=== PATIENT | male | born 1965 | race Hispanic/Latino ===

== ENCOUNTER 2020-11-15 13:40 | Emergency (ER) | payer MEDICARE, OTHER ==
[2020-11-15 17:30] LABS: Urine Blood NEGATIVE (NEG); Urine Glucose 2+ (NEG); Urine Protein NEGATIVE (NEG); Urine Specific Gravity 1.025 (1.005-1.030)
[2020-11-15 19:21] LABS: Absolute Lymphocytes (CBC) 1.1 K/uL (0.7-4.9); Basophils % 0.6 % (0-1.3); Hematocrit 47.6 % (39.6-49.0); Lymphocytes % 16.4 % (15.3-44.8); MPV 9.5 fL (7.6-11.3)
[2020-11-15 19:22] LABS: Protime INR 0.99
[2020-11-15 19:35] LABS: ALT/SGPT 54 U/L (12-78); AST/SGOT 35 U/L (15-37); Albumin 3.9 g/dL (3.4-5.0); Alkaline Phosphatase 113 U/L (45-117); BUN Blood Urea Nitrogen 9 mg/dL (7-18); Bicarbonate 27 mmol/L (21-32); Bilirubin Direct 0.2 mg/dL (0-0.2); Bilirubin Total 0.8 mg/dL (0.2-1.0); Glucose Level 236 mg/dL (74-106); Magnesium 1.7 mg/dL (1.8-2.4); NT PRO-BNP 25 pg/mL (<125); Potassium 4.2 mmol/L (3.5-5.1); Protein, Total 7.9 g/dL (6.4-8.2); Sodium Level 139 mmol/L (136-145); Troponin (Emerg Dept Use Only) < 0.02 ng/mL (0.0-0.045)
--- NOTE | 2020-11-15 19:50 | RAD REPORT ---
EXAM DESCRIPTION: CT - Head Brain Wo Cont - 11/15/2020 7:28 pm CLINICAL HISTORY: HEADACHE Headache, hypertension COMPARISON: HEAD BRAIN W O CONTRAST dated 09/06/2007 TECHNIQUE: All CT scans are performed using dose optimization technique as appropriate and may inclu de automated exposure control or mA/KV adjustment according to patient size. FINDINGS: No intracranial hemorrhage, hydrocephalus or extra-axial fluid collection.No areas of brai n edema or evidence of midline shift. Mild mucosal thickening of the sphenoid and posterior ethmoid air cells. The calvarium is intact. IMPRESSION: No acute intracranial abnormality.
[2020-11-15] MEDS ORDERED: ACETAMINOPHEN 500 MG TAB ONE (19:54)
--- NOTE | 2020-11-15 19:54 | RAD REPORT ---
EXAM DESCRIPTION: RAD - Chest Single View - 11/15/2020 7:20 pm CLINICAL HISTORY: headache Chest pain. COMPARISON: Chest Pa And Lat (2 Views) dated 03/04/2018; Chest Single View dated 05/11/2016; CHEST SINGL E VIEW dated 09/05/2015; CHEST SINGLE VIEW dated 08/10/2015 FINDINGS: Portable technique limits examination quality. The lungs are grossly clear. The heart is normal in size. No displaced fractures. IMPRESSION: No acute intrathoracic process suspected.
--- NOTE | 2020-11-15 20:29 | ER ---
Nurse's Notes [facility] Name: Nuvia Blandon Jr Age: 54 yrs Sex: Male : 1965 Arrival Date: 11/15/2020 Time: 13:45 Bed 17 Private MD: Diagnosis: Headache;Dizziness and giddiness Presentation: 11/15 14:11 Chief complaint: Patient states: Dizziness and blood sugar higher than normal (300's) ll1 for 1 week. KAUR for 1 day. No fever or cough. Fingerstick 336 in triage. Coronavirus screen: Client denies travel out of the [place] in the last 14 days. At this time, the client does not indicate any symptoms associated with coronavirus-19. Ebola Screen: Patient denies travel to an Ebola-affected area in the 21 days before illness onset. Initial Sepsis Screen: Does the patient meet any 2 criteria? HR > 90 bpm. No. Patient's initial sepsis screen is negative. Does the patient have a suspected source of infection? Yes: Other: KAUR. Risk Assessment: Do you want to hurt yourself or someone else? Patient reports no desire to harm self or others. Onset of symptoms was November 11, 2020. 14:11 Method Of Arrival: Ambulatory ll1 14:11 Acuity: CRIS 3 ll1 Historical: - Allergies: 14:11 Bactrim; ll1 14:11 PENICILLINS; ll1 14:11 Morphine; ll1 - PMHx: 14:11 cancer-liver; Cirrhosis; Hepatitis; liver transplant; ll1 - PSHx: 14:11 Transplant; L wrist; ll1 - Immunization history:: Flu vaccine is up to date. - Social history:: Smoking status: Patient denies any tobacco usage or history of. Assessment: 19:15 General: Appears in no apparent distress. Behavior is calm, cooperative, appropriate ll2 for age. Pain: Complains of pain in headache. Neuro: Level of Consciousness is awake, alert, obeys commands, Oriented to person, place, time, situation. Cardiovascular: Patient's skin is warm and dry. Respiratory: Airway is patent Respiratory effort is even, unlabored, Respiratory pattern is regular, symmetrical. Derm: Skin is intact, is healthy with good turgor, Skin is pink, warm \T\ dry. Musculoskeletal: Circulation, motion, and sensation intact. Range of motion: intact in all extremities. Vital Signs: 14:11 BP 135 / 99; Pulse 98; Resp 17; Temp 98.5; Pulse Ox 97% ; Weight 104.78 kg; Height 5 ll1 ft. 7 in. (170.18 cm); Pain 10/10; 14:11 Body Mass Index 36.18 (104.78 kg, 170.18 cm) ll1 ED Course: 13:45 Patient arrived in ED. mr 14:10 Arm band placed on. ll1 14:18 Triage completed. ll1 16:27 Keagan Wallace MD is Attending Physician. kdr 16:55 UA collection ok'd by Dr. Wallace. ll1 19:04 Initial lab(s) drawn, by me, sent to lab. Inserted saline lock: 20 gauge in right jp3 antecubital area, using aseptic technique. Blood collected. Patient maintains SpO2 saturation greater than 95% on room air. 19:19 XRAY Chest (1 view) In Process Unspecified. EDMS 19:19 EKG done, by ED staff, reviewed by Keagan Wallace MD. jp3 19:25 Bed in low position. Call light in reach. Side rails up X 1. Warm blanket given. Verbal jp3 reassurance given. telemetry monitor on. Pulse ox on. NIBP on. 19:28 CT Head Brain wo Cont In Process Unspecified. EDMS 19:48 Attending Physician role handed off by Keagan Wallace MD tw4 19:48 Leif Parkinson MD is Attending Physician. tw4 20:11 Laura Abrams, DYLAN is Primary Nurse. ll2 Administered Medications: 19:45 Drug: Tylenol 1000 mg Route: PO; ll2 20:49 Drug: Zofran (Ondansetron) 4 mg Route: IVP; Site: right antecubital; ll2 20:50 Drug: TORadol 30 mg Route: IVP; Site: right antecubital; ll2 20:50 Drug: Meclizine 25 mg Route: PO; ll2 Outcome: 20:28 Discharge ordered by . tw4 21:42 Patient left the ED. ll2 Signatures: Dispatcher [employer] EDMS Keagan Wallace MD MD [facility] Karen Dolan mr Leif Parkinson MD MD tw4 Evin Becker jp3 Laura Abrams, RN RN ll2 Ros Bee, DYLAN RN ll1
--- NOTE | 2020-11-15 20:29 | EDPHYS ---
Physician Documentation [facility] Name: Nuvia Blandon Jr Age: 54 yrs Sex: Male : 1965 Arrival Date: 11/15/2020 Time: 13:45 Bed 17 Private MD: ED Physician Leif Parkinson HPI: 11/16 04:46 This 54 yrs old Male presents to ER via Ambulatory with complaints of tw4 Headache, Dizziness, High Blood Sugar. 04:46 The patient complains of pain to the forehead. Onset: The symptoms/episode tw4 began/occurred today. Associated signs and symptoms: The patient has no apparent associated signs or symptoms. Severity of symptoms: At its worst the pain was moderate, in the emergency department the pain is unchanged. Headache History: Denies prior headaches. The symptoms are alleviated by nothing. the symptoms are aggravated by nothing. Historical: - Allergies: 11/15 14:11 Bactrim; ll1 14:11 PENICILLINS; ll1 14:11 Morphine; ll1 - PMHx: 14:11 cancer-liver; Cirrhosis; Hepatitis; liver transplant; ll1 - PSHx: 14:11 Transplant; L wrist; ll1 - Immunization history:: Flu vaccine is up to date. - Social history:: Smoking status: Patient denies any tobacco usage or history of. ROS: 11/16 04:46 Constitutional: Negative for fever, chills, and weight loss, Eyes: Negative for injury, tw4 pain, redness, and discharge, Cardiovascular: Negative for chest pain, palpitations, and edema, Respiratory: Negative for shortness of breath, cough, wheezing, and pleuritic chest pain, Abdomen/GI: Negative for abdominal pain, nausea, vomiting, diarrhea, and constipation, Back: Negative for injury and pain, Skin: Negative for injury, rash, and discoloration. Neuro: Positive for headache. Exam: 04:46 Constitutional: This is a well developed, well nourished patient who is awake, alert, tw4 and in no acute distress. Head/Face: Normocephalic, atraumatic. Chest/axilla: Normal chest wall appearance and motion. Nontender with no deformity. No lesions are appreciated. Cardiovascular: Regular rate and rhythm with a normal S1 and S2. No gallops, murmurs, or rubs. Normal PMI, no JVD. No pulse deficits. Respiratory: Lungs have equal breath sounds bilaterally, clear to auscultation and percussion. No rales, rhonchi or wheezes noted. No increased work of breathing, no retractions or nasal flaring. Abdomen/GI: Soft, non-tender, with normal bowel sounds. No distension or tympany. No guarding or rebound. No evidence of tenderness throughout. Back: No spinal tenderness. No costovertebral tenderness. Full range of motion. MS/ Extremity: Pulses equal, no cyanosis. Neurovascular intact. Full, normal range of motion. Neuro: Awake and alert, GCS 15, oriented to person, place, time, and situation. Cranial nerves II-XII grossly intact. Motor strength 5/5 in all extremities. Sensory grossly intact. Cerebellar exam normal. Normal gait. Vital Signs: 11/15 14:11 BP 135 / 99; Pulse 98; Resp 17; Temp 98.5; Pulse Ox 97% ; Weight 104.78 kg; Height 5 ll1 ft. 7 in. (170.18 cm); Pain 10/10; 14:11 Body Mass Index 36.18 (104.78 kg, 170.18 cm) ll1 MDM: 19:43 Patient medically screened. tw4 19:48 Patient medically screened. tw4 11/16 04:46 Data reviewed: vital signs, nurses notes. Data interpreted: quality assurance monitor body: Pulse tw4 oximetry: Interpretation: normal. Counseling: I had a detailed discussion with the patient and/or guardian regarding: the historical points, exam findings, and any diagnostic results supporting the discharge/admit diagnosis, lab results, radiology results. Special discussion: I discussed with the patient/guardian in detail that at this point there is no indication for admission to the hospital. It is understood, however, that if the symptoms persist or worsen the patient needs to return immediately for re-evaluation. 11/15 14:31 Order name: Glucose, Ancillary Testing; Complete Time: 20:25 EDMS 11/15 17:11 Order name: Urine Dipstick--Ancillary (enter results); Complete Time: 20:25 eb 11/15 18:46 Order name: Basic Metabolic Panel kdr 11/15 18:46 Order name: CBC with Diff kdr 11/15 18:46 Order name: LFT's; Complete Time: 20:25 kdr 11/15 18:46 Order name: Magnesium; Complete Time: 20:25 kdr 02 18:46 Order name: NT PRO-BNP; Complete Time: 20:25 kdr 02 18:46 Order name: PT-INR; Complete Time: 20:25 kdr 02 18:46 Order name: Troponin (emerg Dept Use Only); Complete Time: 20:25 kdr 11/15 18:46 Order name: XRAY Chest (1 view); Complete Time: 20:25 kdr 11/15 18:46 Order name: CT Head Brain wo Cont; Complete Time: 20:25 kdr 11/15 18:47 Order name: Basic Metabolic Panel; Complete Time: 20:25 EDMS 11/15 18:47 Order name: CBC with Automated Diff; Complete Time: 20:25 EDMS 11/15 18:46 Order name: EKG; Complete Time: 18:47 kdr 11/15 18:46 Order name: Cardiac monitoring; Complete Time: 19:25 kdr 11/15 18:46 Order name: EKG - Nurse/Tech; Complete Time: 19:25 kdr 11/15 18:46 Order name: IV Saline Lock; Complete Time: 19:25 kdr 11/15 18:46 Order name: Labs collected and sent; Complete Time: 19:25 kdr 11/15 18:46 Order name: O2 Per Protocol; Complete Time: 19:25 kdr 11/15 18:46 Order name: O2 Sat Monitoring; Complete Time: 19:25 kdr EC:46 Rate is 74 beats/min. Rhythm is regular. Right axis deviation noted. SC interval is tw4 normal. QRS interval is normal. QT interval is normal. No Q waves. T waves are Normal. No ST changes noted. Clinical impression: NSR w/ Non-specific ST/T Changes. Interpreted by me. Reviewed by me. Administered Medications: 11/15 19:45 Drug: Tylenol 1000 mg Route: PO; ll2 20:49 Drug: Zofran (Ondansetron) 4 mg Route: IVP; Site: right antecubital; ll2 20:50 Drug: TORadol 30 mg Route: IVP; Site: right antecubital; ll2 20:50 Drug: Meclizine 25 mg Route: PO; ll2 Disposition: 11/15/20 20:28 Discharged to Home. Impression: Headache, Dizziness and giddiness. - Condition is Stable. - Discharge Instructions: Benign Positional Vertigo, Dizziness, General Headache Without Cause, Pain Without a Known Cause. - Prescriptions for Fiorinal 50- 325-40 mg Oral Capsule - take 1 capsule by ORAL route every 4 hours As needed - not to exceed 6 capsules per day; 20 capsule. Ibuprofen 800 mg Oral Tablet - take 1 tablet by ORAL route every 8 hours As needed take with food; 30 tablet. Meclizine 25 mg Oral Tablet - take 1 tablet by ORAL route every 8 hours As needed; 30 tablet. Zofran 4 mg Oral Tablet - take 1 tablet by ORAL route every 12 hours As needed; 6 tablet. - Medication Reconciliation Form, Thank You Letter, Antibiotic Education, Prescription Opioid Use form. - Follow up: Private Physician; When: Upon discharge from the Emergency Department; Reason: Recheck today's complaints, Continuance of care, Re-evaluation by your physician. - Problem is new. - Symptoms have improved. Signatures: Dispatcher [employer] EDMS Keagan Wallace MD MD [facility] Leif Parkinson MD MD tw4 Laura Abrams, RN RN ll2 Ros Bee RN RN ll1 Corrections: (The following items were deleted from the chart) 21:42 20:28 11/15/2020 20:28 Discharged to Home. Impression: Headache; Dizziness and ll2 giddiness. Condition is Stable. Forms are Medication Reconciliation Form, Thank You Letter, Antibiotic Education, Prescription Opioid Use. Follow up: Private Physician; When: Upon discharge from the Emergency Department; Reason: Recheck today's complaints, Continuance of care, Re-evaluation by your physician. Problem is new. Symptoms have improved. tw4
[2020-11-15] MEDS ORDERED: ONDANSETRON 4 MG/2 ML VIAL ONE (20:52)
[2020-11-15] MEDS ORDERED: MECLIZINE HCL 12.5 MG TAB ONE (20:52)
[2020-11-15] MEDS ORDERED: KETOROLAC 30 MG/ML INJ ONE (20:53)
[2020-11-15 21:47] VITALS: BP 135/99; TEMP 98.5; O2SAT 97
--- NOTE | 2020-11-17 07:55 | EKG ---
Test Date: 2020-11-15 Test Time: 19:19:13 Char Filter Tank Tender: ROSS MEASUREMENT RESULTS: Intervals: Rate: 74 IL: 148 QRSD: 76 QT: 380 QTc: 421 [place]: P: 59 IL: 148 QRS: 94 T: 49 INTERPRETIVE STATEMENTS: Normal sinus rhythm Rightward axis Borderline ECG Compared to ECG 05/11/2016 05:27:12 Right-axis deviation now present Electronically Signed On 11-17-20 07:53:09 NATURALIST by Pramod Cui
== END 2020-11-15 21:42 | disposition home or self-care (01) ==
LOC: ER 13:40
DX: R51.9 Headache, unspecified (principal); R42 Dizziness and giddiness; Z94.4 Liver transplant status; Z88.0 Allergy status to penicillin; Z88.1 Allergy status to other antibiotic agents; Z88.5 Allergy status to narcotic agent; Z85.05 Personal history of malignant neoplasm of liver
CPT/HCPCS: 93005; 85025; 80048; 36415; 83735; 85610; 82947; 80076; 81003; 84484; 83880; 70450; 71045; 96375; 96374; 99285; J2405

== ENCOUNTER 2020-11-17 17:57 | Emergency (ER) | payer MEDICARE, OTHER ==
--- NOTE | 2020-11-17 19:47 | ER ---
Nurse's Notes [facility] Name: Nuvia Blandon Jr Age: 54 yrs Sex: Male : 1965 Arrival Date: 11/17/2020 Time: 17:58 Bed Waiting Private MD: Diagnosis: Presentation: 11/17 18:15 Chief complaint: Patient states: KAUR is worse, sugar is elevated for weeks. Blood sugar ll1 336 in triage. States it was 455 at home 45 min [employer]. Just feeling worse overall, states his disability coordinator told him to come in again for eval. (seen yesterday) for the same.). Coronavirus screen: Client denies travel out of the [place] in the last 14 days. At this time, the client does not indicate any symptoms associated with coronavirus-19. Ebola Screen: Patient denies travel to an Ebola-affected area in the 21 days before illness onset. Initial Sepsis Screen: Does the patient meet any 2 criteria? No. Patient's initial sepsis screen is negative. Does the patient have a suspected source of infection? No. Patient's initial sepsis screen is negative. Risk Assessment: Do you want to hurt yourself or someone else? Patient reports no desire to harm self or others. Onset of symptoms was October 27, 2020. 18:15 Method Of Arrival: Ambulatory ll1 18:15 Acuity: CRIS 3 ll1 Historical: - Allergies: 18:15 Bactrim; ll1 18:15 Morphine; ll1 18:15 PENICILLINS; ll1 - PMHx: 18:15 cancer-liver; Cirrhosis; Hepatitis; liver transplant; ll1 - PSHx: 18:15 Transplant; L wrist; ll1 - Immunization history:: Flu vaccine is up to date. - Social history:: Smoking status: Patient denies any tobacco usage or history of. Vital Signs: 18:15 BP 125 / 80; Pulse 85; Resp 17; Temp 97.9; Pulse Ox 97% ; Weight 105.69 kg; Height 5 ll1 ft. 7 in. (170.18 cm); Pain 10/10; 18:15 Body Mass Index 36.49 (105.69 kg, 170.18 cm) ll1 ED Course: 17:58 Patient arrived in ED. rg4 18:14 Arm band placed on. ll1 18:18 Triage completed. ll1 19:20 Ke Díaz MD is Attending Physician. [facility] 19:23 Etsuardo Narayan, RN is Primary Nurse. 19:25 not in lobby or restroom when called back to ER room for eval. 1 19:35 Not in lobby when called to ER room for eval. 1 19:46 Not in lobby or restroom when called back to ER room for physician eval. LWBS. [facility] Administered Medications: No medications were administered Outcome: 19:46 Patient left the ED. [facility] Signatures: Anyi Nicolas rg4 Ros Bee RN RN [facility] Ke Díaz MD MD [facility] Estuardo Narayan, RN RN
[2020-11-17 19:53] VITALS: BP 125/80; TEMP 97.9; O2SAT 97
== END 2020-11-17 19:46 | disposition left against medical advice (07) ==
LOC: ER 17:57
DX: Z53.21 Procedure and treatment not carried out due to patient leaving prior to being seen by health care provider (principal)
CPT/HCPCS: 82947; 99281

== ENCOUNTER 2021-10-22 14:00 | Emergency (ER) | payer OTHER ==
--- OUTSIDE RECORDS SUMMARY | 2021-10-22 14:05 | XMS REPORT | Continuity of Care Document ---
:1965 Author Organization [facility] t Address [address] [place] [address] Care Team Providers Name Role Phone [facility] Attending Clinician Unavailable JARAD Attending Clinician Unavailable ASKED Attending Clinician Unavailable Problems This patient has no known problems. Allergies, Adverse Reactions, Alerts This patient has no known allergies or adverse reactions. Medications This patient has no known medications. Procedures This patient has no known procedures. Encounters Start End Encounter Admission Attending Care Care Encounter Source Date/Time Date/Time Type Type Clinicians Facility Department ID 2020-12-11 2020-12-11 Outpatient [facility] [id number] [place] 00:00:00 00:00:00 YUNIOR [address] 2020-11-26 2020-11-26 Outpatient [facility] [id number] [place] 00:00:00 00:00:00 YUNIOR [address] 2020-11-26 2020-11-26 Outpatient [facility] [id number] [place] 00:00:00 00:00:00 YUNIOR [address] 2020-09-03 2020-09-[address] [facility] [id number] [place] 00:00:00 00:00:00 ANABELLE [address] 2020-09-02 2020-09-02 [facility]patient [facility] [id number] [place] 00:00:00 00:00:00 ANABELLE [address] 2020-09-02 2020-09-02 [facility] [id number] [place] 00:00:00 00:00:00 ANABELLE [address] 2020-09-02 2020-09-02 [facility] [id number] [place] 00:00:00 00:00:00 ANABELLE [address] 2020-09-02 2020-09-02 Outpatient ABRAH[facility], [facility] [id number] [place] 00:00:00 00:00:00 ANABELLE [address] 2020-09-02 2020-09-02 Outpatient ABRAHAM, [facility] [id number] [place] 00:00:00 00:00:00 ANABELLE [address] 2020-09-02 2020-09-02 Outpatient ABRAHAM, [facility] [id number] [place] 00:00:00 00:00:00 ANABELLE [address] 2020-03-04 2020-03-04 Outpatient ABRAHAM, [facility] [id number] [place] 00:00:00 00:00:00 ANABELLE [address] 2019-07-04 2019-07-04 Outpatient ASKED, NO [facility] [id number] [place] 00:00:00 00:00:[address] 2019-07-04 2019-07-04 Outpatient ABRAHAM, [facility] [id number] [place] 00:00:00 00:00:00 ANABELLE [address] 2019-07-04 2019-07-04 Outpatient ABRAHAM, [facility] [id number] [place] 00:00:00 00:00:00 ANABELLE [address] 2019-07-04 2019-07-04 Outpatient ABRAHAM, [facility] [id number] [place] 00:00:00 00:00:00 ANABELLE [address] 2019-07-04 2019-07-04 Outpatient ABRAHAM, [facility] [id number] [place] 00:00:00 00:00:00 ANABELLE [address] Results This patient has no known results.
[2021-10-22 15:03] LABS: Absolute Lymphocytes (CBC) 0.7 K/uL (0.7-4.9); Hematocrit 47.9 % (39.6-49.0); Lymphocytes % 8.2 % (15.3-44.8); MPV 8.8 fL (7.6-11.3)
[2021-10-22] MEDS ORDERED: ONDANSETRON 4 MG/2 ML VIAL ONE (15:06)
[2021-10-22] MEDS ORDERED: MORPHINE 4 MG/ML SYR ONE (15:06)
--- NOTE | 2021-10-22 15:08 | RAD REPORT ---
EXAM DESCRIPTION: CT - Head C Spine Cap Wo Con - 10/22/2021 2:40 pm CLINICAL HISTORY: Trauma, head and neck injury. Chest, abdomen and pelvis pain. PAIN COMPARISON: Abdomen Pelvis Wo Contrast dated 11/11/2016 TECHNIQUE: CT head without contrast. CT cervical spine without contrast with coronal and sagittal reformatted images. CT chest, abdomen and pelvis without contrast with coronal and sagittal reformatted images of the spi ne. All CT scans are performed using dose optimization technique as appropriate and may include automated exposure control or mA/KV adjustment according to patient size. FINDINGS: CT HEAD WITHOUT CONTRAST: No intracranial hemorrhage, hydrocephalus or extra-axial fluid collection. No areas of brain edema o r midline shift. Mild mucoperiosteal thickening involves the paranasal sinuses. The calvarium is intact. CT CERVICAL SPINE WITHOUT CONTRAST: No fracture or subluxation. Mild lower cervical degenerative changes. The prevertebral soft tissues a re normal in thickness. CT CHEST, ABDOMEN, PELVIS WITHOUT CONTRAST: NOTE: Lack of contrast is a significant limitation in the assessment of trauma related findings. Spec ifically, solid organ, vascular and bowel evaluation is significantly limited. The lungs are clear.No pneumothorax or pericardial/pleural fluid. No evidence of intra-abdominal visceral injury, free fluid or free air is seen within the above detai led limitations. Large pannus is identified. No concerning pelvic findings. No fractures. IMPRESSION: Negative for acute traumatic findings within the above detailed limitations.
[2021-10-22] MEDS ORDERED: MEPERIDINE HCL 25 MG/ML SYR ONE (15:10)
--- NOTE | 2021-10-22 15:55 | RAD REPORT ---
EXAM DESCRIPTION: RAD - Foot Left 3 View - 10/22/2021 3:34 pm CLINICAL HISTORY: fall,foot pain COMPARISON: No comparisons FINDINGS: Mild soft tissue swelling is seen along the dorsum of the forefoot. No acute fracture or d islocation seen.
--- NOTE | 2021-10-22 16:19 | ER ---
Nurse's Notes [facility] Name: Nuvia Blandon Jr Age: 55 yrs Sex: Male : 1965 Arrival Date: 10/22/2021 Time: 14:05 Bed 27 Private MD: Diagnosis: Unspecified injury of head, initial encounter;Concussion with loss of consciousness of 30 minutes or less;Mid back pain;Pain in left ankle and joints of left foot Presentation: 10/22 14:13 Chief complaint: Patient states: "I fell out the back of my truck bed onto my back and jd3 got nocked out. I woke up and then vomited and then determined I needed to come to the ER.". Coronavirus screen: At this time, the client does not indicate any symptoms associated with coronavirus-19. Ebola Screen: Patient negative for fever greater than or equal to 101.5 degrees Fahrenheit, and additional compatible Ebola Virus Disease symptoms. Initial Sepsis Screen: Does the patient meet any 2 criteria? No. Patient's initial sepsis screen is negative. Does the patient have a suspected source of infection? No. Patient's initial sepsis screen is negative. Risk Assessment: Do you want to hurt yourself or someone else? Patient reports no desire to harm self or others. Onset of symptoms was October 22, 2021. 14:13 Method Of Arrival: Wheelchair jd3 14:13 Acuity: CRIS 3 jd3 14:27 Care prior to arrival: None. Mechanism of Injury: Fall fell from back of truck. Trauma ab2 event details: Injury occurred: October 22, 2021 Injury occurred at: 09:00. Trauma Activation: Alert Physician: ED Physician; Name: ; Notified At: ; Arrived At: Physician: General Surgeon; Name: ; Notified At: ; Arrived At: Physician: Radiology; Name: ; Notified At: ; Arrived At: Physician: Respiratory; Name: ; Notified At: ; Arrived At: Physician: Lab; Name: ; Notified At: ; Arrived At: Historical: - Allergies: 14:14 Bactrim; jd3 14:14 Morphine; jd3 14:14 PENICILLINS; jd3 - PMHx: 14:14 cancer-liver; Cirrhosis; Hepatitis; liver transplant; jd3 - Immunization history:: Adult Immunizations up to date, Client reports having NOT received the Covid vaccine. Last tetanus immunization: < 5 years ago Flu vaccine is up to date. - Social history:: Smoking status: Patient reports the use of cigarette tobacco products, denies chronic smoking, but will smoke occasionally. Screenin:25 Abuse screen: Denies threats or abuse. Denies injuries from another. Nutritional ab2 screening: No deficits noted. Tuberculosis screening: No symptoms or risk factors identified. Fall Risk Fall in past 12 months (25 points). No secondary diagnosis (0 pts). IV access (20 points). Ambulatory Aid- None/Bed Rest/Nurse Assist (0 pts). Gait- Normal/Bed Rest/Wheelchair (0 pts) Mental Status- Oriented to own ability (0 pts). Total Velasquez Fall Scale indicates Low Risk Score (25-44 pts). Fall prevention measures have been instituted. Side Rails Up X 2 Placed close to Nursing Station 1:1 attendant Assigned to Pt. As available Patient and Family Educated on Fall Prevention Program and strategies. Primary Survey: 14:25 NO uncontrolled hemorrhage observed. Breathing/Chest: Respiratory pattern: regular, ab2 Respiratory effort: spontaneous, unlabored, Breath sounds: clear, Chest inspection: symmetrical rise and fall of the chest. Circulation: Cardiac rhythm:. Disability Alert. Exposure/Environment: There is no evidence of uncontrolled external bleeding. No obvious injuries are noted at this time. 14:26 Reassessment Breathing/Chest Respiratory pattern Respiratory effort Spontaneous ab2 Circulation Heart rhythm Disability Alert. Assessment: 14:22 General: Appears in no apparent distress. comfortable, Behavior is calm, cooperative, ab2 appropriate for age. Pain: Complains of pain in scalp and back. Neuro: No deficits noted. Level of Consciousness is awake, alert, obeys commands, Oriented to person, place, time, situation, Appropriate for age [employer] are equal bilaterally Moves all extremities. Gait is steady, Speech is normal, Facial symmetry appears normal. Cardiovascular: No deficits noted. Reports None Denies chest pain, shortness of breath, Heart tones S1 S2 present Patient's skin is warm and dry. Respiratory: No deficits noted. Airway is patent Breath sounds are clear bilaterally. Denies cough, shortness of breath. GI: Abdomen is distended. GI: Abd is soft and non tender. : No deficits noted. No signs and/or symptoms were reported regarding the genitourinary system. EENT: No deficits noted. No signs and/or symptoms were reported regarding the EENT system. Derm: No deficits noted. No signs and/or symptoms reported regarding the dermatologic system. Musculoskeletal: No deficits noted. Vital Signs: 14:15 BP 121 / 93; Pulse 112; Resp 17 S; Temp 98.9(TE); Pulse Ox 99% on R/A; Weight 104.33 kg jd3 (R); Height 5 ft. 6 in. (167.64 cm) (R); Pain 8/10; 14:28 BP 144 / 94; Pulse 107; Resp 16; Pulse Ox 98% on R/A; ab2 15:36 BP 135 / 84; Pulse 104; Resp 16; Pulse Ox 96% on R/A; ab2 16:41 BP 115 / 62; Pulse 80; Resp 16; Pulse Ox 99% on R/A; ab2 14:15 Body Mass Index 37.12 (104.33 kg, 167.64 cm) jd3 [place] Coma Score: 14:25 Eye Response: spontaneous(4). Verbal Response: oriented(5). Motor Response: obeys ab2 commands(6). Total: 15. Trauma Score (Adult): 14:25 Eye Response: spontaneous(1); Verbal Response: oriented(1); Motor Response: obeys ab2 commands(2); Systolic BP: > 89 mm Hg(4); Respiratory Rate: 10 to 29 per min(4); [place] Score: 15; Trauma Score: 12 ED Course: 14:05 Patient arrived in ED. mr 14:14 Triage completed. jd3 14:15 Arm band placed on. jd3 14:18 Pete Tang is Primary Nurse. ab2 14:26 Patient has correct armband on for positive identification. Bed in low position. Call ab2 light in reach. Side rails up X2. 14:26 No provider procedures requiring assistance completed. ab2 14:28 Patient maintains SpO2 saturation greater than 95% on room air. ab2 14:28 Thermoregulation: warm blanket given to patient. ab2 14:35 Keagan Wallace MD is Attending Physician. kdr 14:40 CT Traumagram (Head C Spine CAP wo con) In Process Unspecified. EDMS 14:55 Basic Metabolic Panel Sent. ab2 14:55 CBC with Diff Sent. ab2 14:55 Type And Screen Sent. ab2 14:56 Inserted saline lock: 20 gauge in left antecubital area, using aseptic technique. Blood ab2 collected. 15:34 Foot Left 3 View XRAY In Process Unspecified. EDMS 17:01 IV discontinued, intact, bleeding controlled, No redness/swelling at site. Pressure ab2 dressing applied. Administered Medications: 15:15 Drug: Demerol (meperidine) 12.5 mg Route: IVP; Site: left antecubital; ab2 17:01 Follow up: Response: No adverse reaction ab2 15:15 Drug: Zofran (Ondansetron) 4 mg Route: IVP; Site: left antecubital; ab2 17:01 Follow up: Response: No adverse reaction ab2 16:40 Drug: [place] (HYDROcodone-acetaminophen) 10 mg-325 mg 1 tabs Route: PO; ab2 17:00 Follow up: Response: No adverse reaction ab2 16:40 Drug: Flexeril (cyclobenzaprine) 10 mg Route: PO; ab2 17:00 Follow up: Response: No adverse reaction ab2 16:40 Drug: Ibuprofen 600 mg Route: PO; ab2 17:00 Follow up: Response: No adverse reaction ab2 Outcome: 16:17 Discharge ordered by . kdr 17:01 Discharged to home via wheelchair. ab2 17:01 Condition: good 17:01 Discharge instructions given to patient, Instructed on discharge instructions, follow up and referral plans. medication usage, Demonstrated understanding of instructions, follow-up care, medications, Prescriptions given X 3. 17:02 Patient left the ED. ab2 Signatures: Dispatcher [employer] EDPA Keagan Wallace MD MD kdr Rivera, Mary mr Davies, Jonathon, RN RN Pete Stack ab2 Corrections: (The following items were deleted from the chart) 17:00 16:59 Zofran (Ondansetron) 4 mg IVP in left antecubital ab2 ab2 17:00 16:59 Demerol (meperidine) 12.5 mg IVP in left antecubital ab2 ab2
--- NOTE | 2021-10-22 16:19 | EDPHYS ---
Physician Documentation [facility] Name: Nuvia Blandon Jr Age: 55 yrs Sex: Male : 1965 Arrival Date: 10/22/2021 Time: 14:05 Bed 27 Private MD: ED Physician Keagan Wallace HPI: 10/22 17:10 This 55 yrs old Male presents to ER via Wheelchair with complaints of Head kdr Injury With LOC-Adult, Fall Injury. 17:10 The patient or guardian reports pain, swelling, tenderness. kdr 17:10 Patient stepped up and into his pickup truck bed and then when he stepped back and kdr leaned on the gate, it opened abruptly and dumped him out on the ground on his back hitting his head. Patient believes he had a brief loss of consciousness. He now complains of posterior headache and pain to the posterior aspect of his head. He also has a small abrasion to his left arm. And tenderness to his dorsum of his left foot. He has no other injuries. Patient has a history of liver dysfunction and has a very enlarged distended abdomen which is normal for him. He has no other complaints. He appears completely nontoxic and relatively uninjured despite the apparent fall and loss of consciousness.. Onset: The symptoms/episode began/occurred suddenly, just prior to arrival. Severity of symptoms: At their worst the symptoms were mild moderate just prior to arrival, in the emergency department the symptoms are unchanged. The patient has not experienced similar symptoms in the past. The patient has not recently seen a physician. Historical: - Allergies: 14:14 Bactrim; jd3 14:14 Morphine; jd3 14:14 PENICILLINS; jd3 - PMHx: 14:14 cancer-liver; Cirrhosis; Hepatitis; liver transplant; jd3 - Immunization history:: Adult Immunizations up to date, Client reports having NOT received the Covid vaccine. Last tetanus immunization: < 5 years ago Flu vaccine is up to date. - Social history:: Smoking status: Patient reports the use of cigarette tobacco products, denies chronic smoking, but will smoke occasionally. ROS: 17:10 Constitutional: Negative for fever, chills, and weight loss, Eyes: Negative for injury, kdr pain, redness, and discharge, ENT: Negative for injury, pain, and discharge, Neck: Negative for injury, pain, and swelling, Cardiovascular: Negative for chest pain, palpitations, and edema, Respiratory: Negative for shortness of breath, cough, wheezing, and pleuritic chest pain, Abdomen/GI: Negative for abdominal pain, nausea, vomiting, diarrhea, and constipation, Back: Negative for injury and pain, : Negative for injury, bleeding, discharge, and swelling, Neuro: Negative for headache, weakness, numbness, tingling, and seizure activity. Psych: Negative for depression, anxiety, suicide ideation, homicidal ideation, and hallucinations, Allergy/Immunology: Negative for hives, rash, and allergies, Endocrine: Negative for neck swelling, polydipsia, polyuria, polyphagia, and marked weight changes, Hematologic/Lymphatic: Negative for swollen nodes, abnormal bleeding, and unusual bruising. 17:10 MS/extremity: Positive for injury or acute deformity, swelling, tenderness, of the dorsum of left foot, Negative for decreased range of motion, deformity, ecchymosis, erythema. Exam: 17:10 Constitutional: This is a well developed, well nourished patient who is awake, alert, kdr and in no acute distress. Head/Face: Normocephalic, atraumatic. Eyes: Pupils equal round and reactive to light, extra-ocular motions intact. Lids and lashes normal. Conjunctiva and sclera are non-icteric and not injected. Cornea within normal limits. Periorbital areas with no swelling, redness, or edema. Neck: Trachea midline, no thyromegaly or masses palpated, and no cervical lymphadenopathy. Supple, full range of motion without nuchal rigidity, or vertebral point tenderness. No Meningismus. Chest/axilla: Normal chest wall appearance and motion. Nontender with no deformity. No lesions are appreciated. Cardiovascular: Regular rate and rhythm with a normal S1 and S2. No gallops, murmurs, or rubs. Normal PMI, no JVD. No pulse deficits. Respiratory: Lungs have equal breath sounds bilaterally, clear to auscultation and percussion. No rales, rhonchi or wheezes noted. No increased work of breathing, no retractions or nasal flaring. Abdomen/GI: Soft, non-tender, with normal bowel sounds. No distension or tympany. No guarding or rebound. No evidence of tenderness throughout. Back: No spinal tenderness. No costovertebral tenderness. Full range of motion. Skin: Warm, dry with normal turgor. Normal color with no rashes, no lesions, and no evidence of cellulitis. Neuro: Awake and alert, GCS 15, oriented to person, place, time, and situation. Cranial nerves II-XII grossly intact. Motor strength 5/5 in all extremities. Sensory grossly intact. Cerebellar exam normal. Normal gait. Psych: Awake, alert, with orientation to person, place and time. Behavior, mood, and affect are within normal limits. 17:10 Head/face: Noted is contusion, that is superficial, of the left occipital area and right occipital area. Vital Signs: 14:15 BP 121 / 93; Pulse 112; Resp 17 S; Temp 98.9(TE); Pulse Ox 99% on R/A; Weight 104.33 kg jd3 (R); Height 5 ft. 6 in. (167.64 cm) (R); Pain 8/10; 14:28 BP 144 / 94; Pulse 107; Resp 16; Pulse Ox 98% on R/A; ab2 15:36 BP 135 / 84; Pulse 104; Resp 16; Pulse Ox 96% on R/A; ab2 16:41 BP 115 / 62; Pulse 80; Resp 16; Pulse Ox 99% on R/A; ab2 14:15 Body Mass Index 37.12 (104.33 kg, 167.64 cm) jd3 [place] Coma Score: 14:25 Eye Response: spontaneous(4). Verbal Response: oriented(5). Motor Response: obeys ab2 commands(6). Total: 15. Trauma Score (Adult): 14:25 Eye Response: spontaneous(1); Verbal Response: oriented(1); Motor Response: obeys ab2 commands(2); Systolic BP: > 89 mm Hg(4); Respiratory Rate: 10 to 29 per min(4); [place] Score: 15; Trauma Score: 12 MDM: 16:17 Patient medically screened. kdr 17:10 Data reviewed: vital signs, nurses notes, lab test result(s), radiologic studies. kdr Counseling: I had a detailed discussion with the patient and/or guardian regarding: the historical points, exam findings, and any diagnostic results supporting the discharge/admit diagnosis, lab results, radiology results, the need for outpatient follow up. 10/22 14:35 Order name: Basic Metabolic Panel; Complete Time: 16:10 kdr 10/22 14:35 Order name: CBC with Diff; Complete Time: 16:10 kdr 10/22 14:35 Order name: CT Traumagram (Head C Spine CAP wo con); Complete Time: 16:10 kdr 10/22 15:23 Order name: Foot Left 3 View XRAY; Complete Time: 16:10 bd 10/22 14:35 Order name: Labs collected and sent; Complete Time: 14:55 kdr 10/22 15:01 Order name: Labs - recollect needed: recollect type and screen,jorden pt; Complete bd Time: 15:36 Administered Medications: 15:15 Drug: Demerol (meperidine) 12.5 mg Route: IVP; Site: left antecubital; ab2 17:01 Follow up: Response: No adverse reaction ab2 15:15 Drug: Zofran (Ondansetron) 4 mg Route: IVP; Site: left antecubital; ab2 17:01 Follow up: Response: No adverse reaction ab2 16:40 Drug: [place] (HYDROcodone-acetaminophen) 10 mg-325 mg 1 tabs Route: PO; ab2 17:00 Follow up: Response: No adverse reaction ab2 16:40 Drug: Flexeril (cyclobenzaprine) 10 mg Route: PO; ab2 17:00 Follow up: Response: No adverse reaction ab2 16:40 Drug: Ibuprofen 600 mg Route: PO; ab2 17:00 Follow up: Response: No adverse reaction ab2 Disposition Summary: 10/22/21 16:17 Discharge Ordered Location: Home kdr Problem: new kdr Symptoms: have improved kdr Condition: Stable kdr Diagnosis - Unspecified injury of head, initial encounter kdr - Concussion with loss of consciousness of 30 minutes or less kdr - Mid back pain kdr - Pain in left ankle and joints of left foot kdr Followup: kdr - With: Private Physician - When: 2 - 3 days - Reason: If symptoms return, Further diagnostic work-up, Recheck today's complaints, Continuance of care, Re-evaluation by your physician Discharge Instructions: - Discharge Summary Sheet kdr - Joint Pain kdr - Head Injury, Adult, [id number] kdr - Foot Pain kdr Forms: - Medication Reconciliation Form kdr - Thank You Letter kdr - Prescription Opioid Use kdr Prescriptions: - Ibuprofen 800 mg Oral Tablet - take 1 tablet by ORAL route every 8 hours As needed take with food; 30 tablet; kdr Refills: 0, Product Selection Permitted - Cyclobenzaprine 10 mg Oral Tablet - take 1 tablet by ORAL route every 8 hours As needed; 30 tablet; Refills: 0, kdr Product Selection Permitted - Tylenol-Codeine #3 300 mg-30 mg Oral - take 1 tablet by ORAL route every 4-6 hours As needed; 12 tablet; Refills: 0, kdr Product Selection Permitted Signatures: Dispatcher [employer] Ivette Michelle Kevin, MD MD kdr Davies, Jonathon, RN RN Pete Stack
[2021-10-22] MEDS ORDERED: HYDROCODONE/APAP 10/325 TAB ONE (16:39)
[2021-10-22] MEDS ORDERED: CYCLOBENZAPRINE 10 MG TAB ONE (16:39)
[2021-10-22] MEDS ORDERED: IBUPROFEN 200 MG TAB PO ONE (16:40)
[2021-10-22 17:10] VITALS: TEMP 98.9
[2021-10-22 17:15] VITALS: BP 115/62; O2SAT 99
== END 2021-10-22 17:02 | disposition home or self-care (01) ==
LOC: ER 14:00
DX: S06.0X1A Concussion with loss of consciousness of 30 minutes or less, initial encounter (principal); M54.9 Dorsalgia, unspecified; M25.572 Pain in left ankle and joints of left foot; W17.89XA Other fall from one level to another, initial encounter; F17.210 Nicotine dependence, cigarettes, uncomplicated; Z88.0 Allergy status to penicillin; Z88.1 Allergy status to other antibiotic agents; Z88.5 Allergy status to narcotic agent; Z94.4 Liver transplant status
CPT/HCPCS: 85025; 80048; 36415; 70450; 71250; 72125; 73630; J2175; J2405; 96374; 96375; 99284

== ENCOUNTER 2021-10-28 08:08 | Emergency (ER) | payer OTHER ==
--- OUTSIDE RECORDS SUMMARY | 2021-10-28 08:13 | XMS REPORT | Continuity of Care Document ---
:1965 Author Organization [facility] Address [address] [place] [address] [address] [place] [address] Care Team Providers Name Role Phone LUIS A Attending Clinician Unavailable JARAD Attending Clinician Unavailable [...] Clinicians Facility Department ID 2020-12-11 2020-12-11 Outpatient [facility] [id number] [place] 00:00:00 00:00:00 YUNIOR [address] 2020-11-26 2020-11-26 Outpatient [facility] [id number] [place] 00:00:00 00:00:00 YUNIOR [address] 2020-11-26 2020-11-26 Outpatient [facility] [id number] [place] 00:00:00 00:00:00 YUNIOR [address] 2020-09-03 2020-09-03 Outpatient [facility] [id number] [place] 00:00:00 00:00:00 ANABELLE [address] 2020-09-02 2020-09-02 [facility] [id number] [place] 00:00:00 00:00:00 ANABELLE [address] 2020-09-02 2020-09-02 [facility] [id number] [place] 00:00:00 00:00:00 ANABELLE [address] 2020-09-02 2020-09-02 Outpatient [facility], [facility] [id number] [place] 00:00:00 00:00:00 ANABELLE [address] 2020-09-02 2020-09-02 [facility] [id number] [place] 00:00:00 00:00:00 ANABELLE [address] 2020-09-02 2020-09-02 Outpatient ABRAHAM, [facility] [id number] [place] 00:00:00 00:00:00 ANABELLE [address] 2020-09-02 2020-09-02 [facility] [id number] [place] 00:00:00 00:00:00 ANABELLE [address] 2020-03-04 2020-03-04 Outpatient ABRAHAM, [facility] [id number] [place] 00:00:00 00:00:00 ANABELLE [address] 2019-07-04 2019-07-04 Outpatient ASKED, NO [facility] [id number] [place] 00:00:00 00:00:[address] 2019-07-04 2019-07-04 Outpatient ABRAHAM, [facility] [id number] [place] 00:00:00 00:00:00 ANABELLE [address] 2019-07-04 2019-07-04 Outpatient ABRAHAM, [facility] [id number] [place] 00:00:00 00:00:00 ANABELLE [address] 2019-07-04 2019-07-04 Outpatient ABRAHAM, [facility] [id number] [place] 00:00:00 00:00:00 ANABELLE [address] 2019-07-04 2019-07-04 Outpatient ABRAHAM, [facility] [id number] [place] 00:00:00 00:00:00 ANABELLE [address] Results This patient has no known results.
[2021-10-28 09:00] LABS: Absolute Lymphocytes (CBC) 0.7 K/uL (0.7-4.9); Hematocrit 45.1 % (39.6-49.0); Lymphocytes % 11.8 % (15.3-44.8); MPV 8.4 fL (7.6-11.3); RBC Red Blood Cell Count 5.14 M/uL (4.33-5.43)
[2021-10-28 09:04] LABS: Protime INR 0.91
[2021-10-28] MEDS ORDERED: MEPERIDINE HCL 25 MG/ML SYR ONE (09:06)
[2021-10-28] MEDS ORDERED: ONDANSETRON 4 MG/2 ML VIAL ONE (09:06)
[2021-10-28 09:21] LABS: Albumin 3.3 g/dL (3.4-5.0); Bilirubin Direct 0.2 mg/dL (0-0.2); Bilirubin Total 0.5 mg/dL (0.2-1.0); Magnesium 2.2 mg/dL (1.8-2.4); Potassium 4.5 mmol/L (3.5-5.1); Protein, Total 7.4 g/dL (6.4-8.2); Troponin High Sensitivity 5.3 pg/mL (<58.9)
--- NOTE | 2021-10-28 09:36 | RAD REPORT ---
EXAM DESCRIPTION: RAD - Chest Single View - 10/28/2021 9:26 am CLINICAL HISTORY: fall, back pain COMPARISON: Portable 11/15/2020 TECHNIQUE: AP portable chest image was obtained 10/28/2021 9:26 am . FINDINGS: Lung volumes are low. Horizontal linear stranding lower right lung field is typical for at electasis. Body habitus and low lung volumes accentuate interstitial pattern. No failure or volume ov erload findings. Heart and vasculature are normal. No pneumothorax or pleural fluid collections seen. Trachea is in the midline. No acute bony abnormality seen. No acute aortic findings suspected. IMPRESSION: Atelectasis changes are present but no acute traumatic chest injury evident.
--- NOTE | 2021-10-28 10:09 | RAD REPORT ---
EXAM DESCRIPTION: CT - Chest Abdomen Pelvis W Cont - 10/28/2021 9:44 am CLINICAL HISTORY: fall from back of truck, chest pain, abdominal pain COMPARISON: Head C Spine Cap Wo Con dated 10/22/2021 TECHNIQUE: Following dynamic enhancement using 100 milliliters nonionic IV contrast, axial imaging o f the chest, abdomen and pelvis was performed. Biphasic technique was utilized through the abdomen. No oral contrast administered. All CT scans are performed using dose optimization technique as appropriate and may include automated exposure control or mA/KV adjustment according to patient size. FINDINGS: Atelectasis changes are present. Trace amount of pleural fluid seen on the left. This is v ty small and difficult to obtain an accurate attenuation value. Pulmonary contusion is not suspected . With the No significant aortic or pulmonary arterial tree finding. Mediastinal and hilar regions sh ow no mass or abnormal lymphadenopathy. No chest wall mass or axillary lymphadenopathy. The anterior left fifth- seventh ribs are fractured without displacement. Fracture at the left fifth and sixth costochondral junction also evident. No other rib fractures confirmed. No scapula fracture identified. Shoulder assessment is incomplete. The tip of the T1 spinous process is detached from the main body is spinous process. This is unchange d from October 22 imaging. Slight wedging of the T10 body is present probably not acute. Correlation can be made with any lower thoracic pain. Posterior wall height is preserved. The liver, spleen and pancreas show no suspicious findings. Gallbladder is absent. No biliary tree di latation. Symmetric renal function is seen with no mass or hydronephrosis. No adrenal abnormalities. No dilated bowel loops or focal bowel wall thickening. No acute GI findings seen. No free air or free fluid. The patient has a very large ventral hernia with diastases of the rectus a bdominis musculature at least 20 cm in diameter. The lower body and antrum of the stomach extends thr ough the upper portion of the hernia defect. Most of the colon and most of the small bowel extend thr ough the hernia defect. Lower lumbar degenerative changes are present. No bony pelvic fracture seen. No significant vascular findings. IMPRESSION: Fractures of the anterior left fifth- seventh ribs are noted without displacement. No as sociated pneumothorax or pulmonary contusion. No acute abdominal or pelvic finding. The patient has a very large ventral hernia with wide diastases of the rectus abdominis musculature. Most of the bowel extends through the hernia defect.
[2021-10-28] MEDS ORDERED: FENTANYL 50 MCG/PATCH TD ONE (11:15)
--- NOTE | 2021-10-28 11:28 | EDPHYS ---
Physician Documentation [facility] Name: Nuvia Blandon Jr Age: 55 yrs Sex: Male : 1965 Arrival Date: 10/28/2021 Time: 08:15 Bed 23 Private MD: ED Physician Anita Miller HPI: 10/28 08:38 This 55 yrs old Male presents to ER via Ambulatory with complaints of Pain All cp Over. 08:38 The patient or guardian reports chest pain that is located primarily in the right cp lateral anterior chest, left lateral anterior chest, right lateral posterior chest and left lateral posterior chest. 08:38 Onset: gradually. The patient presents with abdominal pain that is diffuse. Associated cp signs and symptoms: Pertinent negatives: nausea, vomiting, and diarrhea, dysuria, fever. Patient reports sustaining a fall from back of truck on 10-22-2021 and subsequently being seen and evaluated in this ED. Patient reports he was discharged home and has had increasing pain to chest and abdomen since fall. Historical: - Allergies: 08:24 Bactrim; ll1 08:24 Morphine; ll1 08:24 PENICILLINS; ll1 - PMHx: 08:24 cancer-liver; Cirrhosis; Hepatitis; liver transplant; ll1 - Immunization history:: Client reports having NOT received the Covid vaccine. - Social history:: Smoking status: Patient reports the use of cigarette tobacco products, denies chronic smoking, but will smoke occasionally. ROS: 08:45 Constitutional: Negative for body aches, chills, fever, poor PO intake. cp 08:45 Eyes: Negative for injury, pain, redness, and discharge. cp 08:45 Neck: Negative for pain with movement, pain at rest, stiffness. 08:45 Cardiovascular: Positive for chest pain, Negative for palpitations. 08:45 Respiratory: Negative for cough, shortness of breath, wheezing. 08:45 Abdomen/GI: Positive for abdominal pain, Negative for nausea, vomiting, and diarrhea, bowel incontinence. 08:45 Back: Positive for pain at rest, pain with movement. 08:45 : Negative for urinary symptoms, difficulty urinating, bladder incontinence, testicular pain 08:45 Neuro: Negative for altered mental status, dizziness, headache, weakness. 08:45 All other systems are negative. Exam: 08:50 Constitutional: The patient appears in no acute distress, alert, awake, cp non-diaphoretic, non-toxic, well developed, well nourished, obese, uncomfortable. 08:50 Head/Face: Normocephalic, atraumatic. cp 08:50 Eyes: Periorbital structures: appear normal, Conjunctiva: normal, no exudate, no injection, Sclera: no appreciated abnormality, Lids and lashes: appear normal, bilaterally. 08:50 ENT: External ear(s): are unremarkable, Nose: is normal, Mouth: Lips: moist, Oral mucosa: moist, Posterior pharynx: Airway: no evidence of obstruction, patent. 08:50 Neck: C-spine: vertebral tenderness, is not appreciated, crepitus, is not appreciated, ROM/movement: is normal, is supple, without pain, no range of motions limitations. 08:50 Chest/axilla: Inspection: normal, Palpation: crepitus, is not appreciated, tenderness, that is moderate, of the right lateral anterior chest, left lateral anterior chest, right lateral posterior chest and left lateral posterior chest. 08:50 Cardiovascular: Rate: tachycardic, Rhythm: regular, JVD: is not appreciated. 08:50 Respiratory: the patient does not display signs of respiratory distress, Respirations: normal, no use of accessory muscles, no retractions, labored breathing, is not present, Breath sounds: are clear throughout, no decreased breath sounds, no stridor, no wheezing. 08:50 Abdomen/GI: Inspection: obese Bowel sounds: active, all quadrants, Palpation: soft, in all quadrants, moderate abdominal tenderness, in the anterior aspect of left lateral abdomen, posterior aspect of left lateral abdomen, anterior aspect of right lateral abdomen and posterior aspect of right lateral abdomen. 08:50 Back: pain, that is moderate, of the left subscapular area, right subscapular area, low back area and mid back area, ROM is painful, with all movement. 08:50 Skin: no rash present. 08:50 Neuro: Orientation: to person, place \T\ time. Mentation: is normal, Motor: moves all fours, strength is normal, Sensation: is normal. 09:05 ECG was reviewed by the Attending Physician. cp Vital Signs: 08:24 Pulse 106; Resp 22; Pulse Ox 98% ; Pain 10/10; ll1 08:33 BP 155 / 94; Pulse 107; Resp 18; Temp 98.6; Pulse Ox 97% ; Pain 8/10; cb5 09:27 BP 127 / 87; Pulse 10; cb5 09:27 BP 127 / 87; Pulse 103; Resp 16; Temp 98.6; Pain 5/10; cb5 12:10 BP 129 / 86; Pulse 77; Resp 16; Temp 98.6; Pulse Ox 98% ; Pain 2/10; cb5 MDM: 08:19 Patient medically screened. cp 10/28 08:36 Order name: Basic Metabolic Panel; Complete Time: 09:22 cp 10/28 09:23 Interpretation: Normal except: GLUC 157; GFR 81. cp 10/28 08:36 Order name: CBC with Diff; Complete Time: 09:22 cp 10/28 09:23 Interpretation: Normal except: MARTHA% 75.0; LYM% 11.8; EOSINOPHIL % 5.9. cp 10/28 08:36 Order name: LFT's; Complete Time: 09:22 cp 10/28 09:23 Interpretation: Normal except: ALK 123; ALB 3.3; GLOB 4.1; A/G 0.8. cp 10/28 08:36 Order name: Magnesium; Complete Time: 09:22 cp 10/28 08:36 Order name: NT PRO-BNP; Complete Time: 09:22 cp 10/28 08:36 Order name: PT-INR; Complete Time: 09:22 cp 10/28 08:36 Order name: Troponin HS; Complete Time: 09:22 cp 10/28 09:24 Interpretation: Reviewed. cp 10/28 08:36 Order name: XRAY Chest (1 view); Complete Time: 10:14 cp 10/28 10:14 Interpretation: Report review. cp 10/28 08:36 Order name: Ptt, Activated; Complete Time: 09:22 cp 10/28 08:36 Order name: Lipase; Complete Time: 09:22 cp 10/28 08:45 Order name: CT Chest, Abdomen, Pelvis - W/Contrast; Complete Time: 10:14 cp 10/28 10:16 Order name: INCENTIVE SPIROMETRY cp 10/28 08:36 Order name: EKG; Complete Time: 08:37 cp 10/28 08:36 Order name: Cardiac monitoring; Complete Time: 08:39 cp 10/28 08:36 Order name: EKG - Nurse/Tech; Complete Time: 09: 10/28 08:36 Order name: IV Saline Lock; Complete Time: 09: 10/28 08:36 Order name: Labs collected and sent; Complete Time: : 10/28 08:36 Order name: O2 Per Protocol; Complete Time: : 10/28 08:36 Order name: O2 Sat Monitoring; Complete Time: 08:40 cp EC: Rate is 80 beats/min. Rhythm is regular. AL interval is normal. QRS interval is normal. cp QT interval is normal. T waves are Inverted in lead aVR. Interpreted by me. Reviewed by me. Administered Medications: 09:08 Drug: Demerol (meperidine) 25 mg Route: IVP; Site: left antecubital; cb5 09:08 Drug: Zofran (Ondansetron) 4 mg Route: IVP; Site: left antecubital; cb5 11:21 Drug: fentaNYL Patch (50 mcg/hr) 1 patches Route: Transdermal; Site: abdomen; cb5 Disposition: 10/29 04:42 Co-signature as Attending Physician, Anita Miller MD I agree with the assessment and sp3 plan of care. Disposition Summary: 10/28/21 11:27 Discharge Ordered Location: Home cp Problem: new cp Symptoms: have improved cp Condition: Stable cp Diagnosis - Multiple fractures of ribs, left side cp - Wedge compression fracture of unspecified thoracic vertebra - tenth cp - T1 spinous process fracture cp Followup: cp - With: Private Physician - When: 1 - 2 days - Reason: Recheck today's complaints Discharge Instructions: - Discharge Summary Sheet cp - Spinal Compression Fracture cp - Rib Fracture cp - How to Use an Incentive Spirometer cp Forms: - Medication Reconciliation Form cp - Thank You Letter cp - Antibiotic Education cp - Prescription Opioid Use cp Prescriptions: - Ibuprofen 800 mg Oral Tablet - take 1 tablet by ORAL route every 8 hours As needed take with food; 30 tablet; cp Refills: 0, Product Selection Permitted Signatures: Dispatcher [employer] EDMS Aditya Fajardo PA PA cp Lewis, Lynsay, RN RN ll1 Anita Miller MD MD sp3 Reina Alston RN RN cb5
--- NOTE | 2021-10-28 11:28 | ER ---
Nurse's Notes [facility] Name: Nuvia Blandon Jr Age: 55 yrs Sex: Male : 1965 Arrival Date: 10/28/2021 Time: 08:15 Bed 23 Private MD: Diagnosis: Multiple fractures of ribs, left side;Wedge compression fracture of unspecified thoracic vertebra-tenth;T1 spinous process fracture Presentation: 10/28 08:24 Chief complaint: Patient states: Bilateral trunk and abd pain since his last visit here ll1 10/22 after fall from truck. Coronavirus screen: Vaccine status: Patient reports being unvaccinated. Client denies travel out of the [place] in the last 14 days. At this time, the client does not indicate any symptoms associated with coronavirus-19. Ebola Screen: Patient denies travel to an Ebola-affected area in the 21 days before illness onset. Initial Sepsis Screen: Does the patient meet any 2 criteria? No. Patient's initial sepsis screen is negative. Initial Sepsis Screen: Does the patient have a suspected source of infection? No. Patient's initial sepsis screen is negative. Risk Assessment: Do you want to hurt yourself or someone else? Patient reports no desire to harm self or others. Onset of symptoms was October 22, 2021. 08:24 Method Of Arrival: Ambulatory ll1 08:24 Acuity: CRIS 3 ll1 Triage Assessment: 08:25 General: Appears uncomfortable, Behavior is calm, cooperative, appropriate for age. ll1 Pain: Complains of pain in trunk. Historical: - Allergies: 08:24 Bactrim; ll1 08:24 Morphine; ll1 08:24 PENICILLINS; ll1 - PMHx: 08:24 cancer-liver; Cirrhosis; Hepatitis; liver transplant; ll1 - Immunization history:: Client reports having NOT received the Covid vaccine. - Social history:: Smoking status: Patient reports the use of cigarette tobacco products, denies chronic smoking, but will smoke occasionally. Screenin:38 Abuse screen: Denies threats or abuse. Denies injuries from another. Nutritional cb5 screening: No deficits noted. Tuberculosis screening: No symptoms or risk factors identified. 11:00 Fall Risk None identified. cb5 Assessment: 08:33 General: Appears uncomfortable, obese, well groomed, well developed, well nourished, 5 Behavior is calm, cooperative, appropriate for age. Pain: Complains of pain in abdomen Pain currently is 8 out of 10 on a pain scale. Quality of pain is described as aching, tender. Neuro: No deficits noted. Level of Consciousness is awake, alert, obeys commands, Oriented to person, place, time, situation, Appropriate for age. Cardiovascular: No deficits noted. Respiratory: No deficits noted. GI: Abdomen is distended, obese, bruised on posterior aspect of left lateral abdomen Last BM was October 28, 2021. Abd is soft Abdomen is tender to palpation in abdomen diffusely Guarding noted X 4 quads. in left upper quadrant. : No deficits noted. EENT: No deficits noted. Derm: No deficits noted. Musculoskeletal: No deficits noted. 09:31 General: pt states his pain is now a 5/10 pt being transferred to radiology department 5 via stretcher at this time. . 11:00 Reassessment: Patient states feeling better. Patient states symptoms have improved. [facility] 11:14 Reassessment: contacted pharmacy and requested Fentanyl patch for patient. 5 11:27 Reassessment: Placed fentanyl patch on patients RUQ and placed a clear tegaderm over it [facility] with todays date. Informed patient where his pain patch is. 12:30 Reassessment: Patient states feeling better. Patient states symptoms have improved. [facility] Vital Signs: 08:24 Pulse 106; Resp 22; Pulse Ox 98% ; Pain 10/10; ll1 08:33 BP 155 / 94; Pulse 107; Resp 18; Temp 98.6; Pulse Ox 97% ; Pain 8/10; cb5 09:27 BP 127 / 87; Pulse 10; cb5 09:27 BP 127 / 87; Pulse 103; Resp 16; Temp 98.6; Pain 5/10; cb5 12:10 BP 129 / 86; Pulse 77; Resp 16; Temp 98.6; Pulse Ox 98% ; Pain 2/10; cb5 ED Course: 08:15 Patient arrived in ED. mr 08:17 Aditya Fajardo PA is PHCP. cp 08:17 Anita Miller MD is Attending Physician. cp 08:24 Arm band placed on Patient placed in an exam room, on a stretcher. ll1 08:25 Triage completed. ll1 08:30 Reina Alston, RN is Primary Nurse. cb5 08:39 Patient has correct armband on for positive identification. Bed in low position. Call cb5 light in reach. Side rails up X 1. 08:39 No provider procedures requiring assistance completed. cb5 09:07 Troponin HS Sent. cb5 09:08 LFT's Sent. cb5 09:08 Magnesium Sent. cb5 09:08 NT PRO-BNP Sent. cb5 09:08 Lipase Sent. cb5 09:26 XRAY Chest (1 view) In Process Unspecified. EDMS 09:43 CT Chest, Abdomen, Pelvis - W/Contrast In Process Unspecified. EDMS Administered Medications: 09:08 Drug: Demerol (meperidine) 25 mg Route: IVP; Site: left antecubital; cb5 09:08 Drug: Zofran (Ondansetron) 4 mg Route: IVP; Site: left antecubital; cb5 11:21 Drug: fentaNYL Patch (50 mcg/hr) 1 patches Route: Transdermal; Site: abdomen; cb5 Outcome: 11:27 Discharge ordered by . arturo 12:42 Discharged to home ambulatory. cb5 12:42 Condition: stable 12:42 Discharge instructions given to patient. 12:42 Patient left the ED. cb5 Signatures: Dispatcher [employer] Karen Johnson Corey, PA PA cp Lewis, Lynsay, RN RN ll1 Reina Alston, RN RN cb5
[2021-10-28 12:51] VITALS: TEMP 98.6
[2021-10-28 12:54] VITALS: BP 129/86; O2SAT 98
--- NOTE | 2021-10-29 13:06 | EKG ---
Test Date: 2021-10-28 Test Time: 08:59:45 Comptometer Operator: MEASUREMENT RESULTS: Intervals: Rate: 80 ME: 142 QRSD: 80 QT: 348 QTc: 401 [place]: P: 57 ME: 142 QRS: 68 T: 32 INTERPRETIVE STATEMENTS: Normal sinus rhythm Normal ECG Compared to ECG 11/15/2020 19:19:13 Right-axis deviation no longer present Electronically Signed On 10-29-21 13:03:03 HEMATOLOGY NURSE EDUCATOR by Pramod Cui
== END 2021-10-28 12:42 | disposition home or self-care (01) ==
LOC: ER 08:08
DX: S22.42XA Multiple fractures of ribs, left side, initial encounter for closed fracture (principal); S22.010A Wedge compression fracture of first thoracic vertebra, initial encounter for closed fracture; W17.89XA Other fall from one level to another, initial encounter; Z94.4 Liver transplant status; F17.210 Nicotine dependence, cigarettes, uncomplicated; Z88.0 Allergy status to penicillin; Z88.1 Allergy status to other antibiotic agents; Z88.5 Allergy status to narcotic agent
CPT/HCPCS: 93005; 85025; 80048; 36415; 83735; 85610; 80076; 85730; 84484; 83690; 83880; 71260; 74177; 71045; Q9967; J2175; J2405; 96374; 96375; 99284

== ENCOUNTER 2021-11-27 11:59 | Emergency (ER) | payer OTHER ==
--- OUTSIDE RECORDS SUMMARY | 2021-11-27 12:02 | XMS REPORT | Clinical Summary ---
:1965 Author Organization [facility] Address [address] [place] [address] Care Team Providers Name Role Phone Ash Myers MD Primary Care Provider Evonne Villalobos MD Unavailable Cheryl Waggoner Unavailable Ganesh Leon MD Unavailable Allergies Not on File Medications Not on file Active Problems Not on file Social History Tobacco Use Types Packs/Day Years Used Date Never Assessed Sex Assigned at Date Recorded Not on file Last Filed Vital Signs Not on file Plan of Treatment Not on file Results Not on fileafter 11/27/2020 Insurance Payer Benefit Plan / Subscriber ID Effective Dates Phone Addre ss Type Group MEDICARE MEDICARE PART [id number] 2010-[place] [phone] [facility] Medicare A AND B t 2 SOLUTIONS [address] [facility] [place] [id number] Care Teams Bill Of Materials Clerk Relationship Specialty Start Date End Date Ash Myers MD PCP - General 12/04/[address] [place] [id number] Evonne Villalobos MD Physician 12/11/[address] [place] [id number] Cheryl Waggoner PA Physician Still 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
--- OUTSIDE RECORDS SUMMARY | 2021-11-27 12:02 | XMS REPORT | Continuity of Care Document ---
:1965 Author Organization [facility] t Address [address] [place] [address] [address] [place] [address] Care Team Providers Name Role Phone Louis WILKS Primary Care Physician LUIS A Attending Clinician Unavailable JARAD Attending Clinician Unavailable ASKED Attending Clinician Unavailable Payers Payer Name Policy Type Policy Number Effective Date Expiration Date S bere MEDICARE PART A [id number] 2010 AND B 00:00:00 Problems This patient has no known problems. Allergies, Adverse Reactions, Alerts This patient has no known allergies or adverse reactions. Social History Social Habit Start Date Stop Date Quantity Comments Source Sex Assigned At [birth year] MD Perales 00:00:00 00:00:00 Medications This patient has no known medications. Procedures This patient has no known procedures. Encounters Start End Encounter Admission Attending Care Care Encounter Source Date/Time Date/Time Type Type Clinicians Facility Department ID 2021-11-06 Outpatient MDA SILVIA [id number] 18:41:17 Anderso n 2020-12-11 2020-12-11 Outpatient [facility] [id number] 00:00:00 00:00:00 YUNIOR [address] 2020-11-26 2020-11-26 Outpatient [facility] [id number] 00:00:00 00:00:00 YUNIOR [address] 2020-11-26 2020-11-26 Outpatient [facility] [id number] 00:00:00 00:00:00 YUNIOR [address] 2020-09-03 2020-09-03 Outpatient [facility] 234 BEDS AT THE [facility] [id number] [place] 00:00:00 00:00:00 ANABELLE [address] 2020-09-02 2020-09-02 Outpatient ABRAHAM, [facility] [id number] [place] 00:00:00 00:00:00 ANABELLE [address] 2020-09-02 2020-09-02 Outpatient ABRAHAM, [facility] [id number] [address] [place] 00:00:00 00:00:00 ANABELLE [address] 2020-09-02 2020-09-02 Outpatient ABRAHAM, [facility] [id number] [address] [place] 00:00:00 00:00:00 ANABELLE [address] 2020-09-02 2020-09-02 Outpatient ABRAHAM, [facility] [id number] [address] [place] 00:00:00 00:00:00 ANABELLE [address] 2020-09-02 2020-09-02 Outpatient ABRAHAM, H [facility] [id number] [place] 00:00:00 00:00:00 ANABELLE [address] 2020-09-02 2020-09-02 Outpatient ABRAHAM, [facility] [id number] [place] 00:00:00 00:00:00 ANABELLE [address] 2020-03-04 2020-03-04 Outpatient ABRAHAM, [facility] [id number] [place] 00:00:00 00:00:00 ANABELLE [address] 2019-07-04 2019-07-04 Outpatient ASKED, NO [facility] [id number] [place] 00:00:00 00:00:[address] 2019-07-04 2019-07-04 Outpatient ABRAHAM, [facility] [id number] [place] 00:00:00 00:00:00 ANABELLE [address] 2019-07-04 2019-07-04 Outpatient ABRAHAM, [facility] [id number] [place] 00:00:00 00:00:00 ANABELLE [address] 2019-07-04 2019-07-04 Outpatient ABRAHAM, [facility] [id number] [place] 00:00:00 00:00:00 ANABELLE [address] 2019-07-04 2019-07-04 Outpatient ABRAHAM, [facility] [id number] [place] 00:00:00 00:00:00 ANABELLE [address] Results This patient has no known results.
--- NOTE | 2021-11-27 13:43 | RAD REPORT ---
EXAM DESCRIPTION: RAD - Chest Single View - 11/27/2021 1:37 pm CLINICAL HISTORY: rib pain COMPARISON: Chest Single View dated 10/28/2021; Chest Single View dated 11/15/2020; Chest Pa And Lat ( 2 Views) dated 03/04/2018; Chest Single View dated 05/11/2016; Chest Abdomen Pelvis W Cont dated FINDINGS: Lines: None. Lungs: Improved aeration lungs compared with 10/28/2021. Pleural: No significant pleural effusions or pneumothorax. Cardiac: The heart size is within normal limits. Bones: No acute fractures. Other: IMPRESSION: Improved aeration of the lungs compared with 10/28/2021. No new superimposed acute proce ss. Nondisplaced rib fractures better demonstrated on recent CT.
--- NOTE | 2021-11-27 14:55 | EDPHYS ---
Physician Documentation [facility] Name: Nuvia Blandon Jr Age: 55 yrs Sex: Male : 1965 Arrival Date: 11/27/2021 Time: 12:00 Bed 10 Private MD: ED Physician Keagan Wallace HPI: 11/27 13:02 This 55 yrs old Male presents to ER via Ambulatory with complaints of rib pain.jmm 13:02 Onset: The symptoms/episode began/occurred 1 day(s) ago. Modifying factors: The jmm symptoms are alleviated by nothing, the symptoms are aggravated by nothing. This is a 55-year-old male with history of liver cirrhosis, liver transplant the presents emerged part with left-sided rib pain beginning after a coughing fit which occurred yesterday. Patient states he is recently recovering from an upper respiratory infection and finished a course of antibiotics. States that has had increased pain since that episode. Historical: - Allergies: 12:22 Bactrim (Hives); tw2 12:22 Morphine; nauseous; tw2 12:22 PENICILLINS (Hives); tw2 - Home Meds: 12:22 CellCept Oral [Active]; metformin 500 mg Oral tab 1 tab 2 times per day [Active]; tw2 Magnesium Oxide Oral [Active]; Sodium Bicarbonate Oral [Active]; pantoprazole oral [Active]; Vitamin D Oral [Active]; ursodiol Oral [Active]; tacrolimus oral [Active]; - PMHx: 12:22 cancer-liver; Cirrhosis; Hepatitis; C; liver transplant; tw2 - Immunization history:: Adult Immunizations. - Social history:: Smoking status: . ROS: 13:02 Constitutional: Negative for fever, chills, and weight loss. jmm 13:02 Abdomen/GI: Negative for abdominal pain, nausea, vomiting, diarrhea, and constipation, Back: Negative for injury and pain. 13:02 Cardiovascular: Positive for chest pain, with cough. 13:02 All other systems are negative. Exam: 13:02 Constitutional: This is a well developed, well nourished patient who is awake, alert, jmm and in no acute distress. Head/Face: atraumatic. Eyes: EOMI, no conjunctival erythema appreciated ENT: Moist Mucus Membranes Neck: Trachea midline, Supple Cardiovascular: Regular rate and rhythm. No edema appreciated Respiratory: Normal respirations, no respiratory distress appreciated Abdomen/GI: Non distended, soft Back: Normal ROM 13:02 MS/ Extremity: Moves all extremities, no obvious deformities appreciated, no edema noted to the lower extremities Neuro: Awake and alert Psych: Behavior is normal, Mood is normal, Patient is cooperative and pleasant 13:02 Chest/axilla: Palpation: tenderness, that is moderate, of the left lateral anterior chest. Vital Signs: 12:18 BP 125 / 75; Pulse 110; Resp 17; Temp 97.9(TE); Pulse Ox 97% on R/A; Weight 111.58 kg tw2 (R); Height 5 ft. 7 in. (170.18 cm) (R); Pain 10/10; 12:39 BP 129 / 94; Pulse 98; Resp 22; Pulse Ox 100% on R/A; ss7 14:25 BP 161 / 88; Pulse 93; Resp 18; Pulse Ox 96% on R/A; ss7 12:18 Body Mass Index 38.53 (111.58 kg, 170.18 cm) tw2 MDM: 13:02 Patient medically screened. [facility] 14:53 Data reviewed: vital signs, nurses notes. Counseling: I had a detailed discussion with [facility] the patient and/or guardian regarding: the historical points, exam findings, and any diagnostic results supporting the discharge/admit diagnosis, radiology results, the need for outpatient follow up, to return to the emergency department if symptoms worsen or persist or if there are any questions or concerns that arise at home. Response to treatment: the patient's symptoms have mildly improved after treatment, and as a result, I will discharge patient. 11/27 13:09 Order name: Chest Single View XRAY; Complete Time: 13:48 [facility] Administered Medications: 13:22 Drug: fentaNYL (PF) 50 mcg Route: IM; Site: right vastus lateralis; ss7 15:12 Drug: Ketorolac 30 mg Route: IM; Site: left vastus lateralis; ss7 Disposition: 17:42 Co-signature as Attending Physician, Keagan Wallace MD I agree with the assessment and kdr plan of care. Disposition Summary: 11/27/21 14:54 Discharge Ordered Location: Home [facility] Condition: Stable [facility] Diagnosis - Intercostal Strain [facility] Followup: jmm - With: Private Physician - When: 2 - 3 days - Reason: Recheck today's complaints, Continuance of care, Re-evaluation by your physician Discharge Instructions: - Discharge Summary Sheet joann - Rib Contusion [facility] Forms: - Medication Reconciliation Form enrico - Thank You Letter joann - Antibiotic Education joann - Prescription Opioid Use joann Prescriptions: - Zanaflex 4 mg Oral Tablet - take 1 tablet by ORAL route every 8 hours As needed; 20 tablet; Refills: 0, [facility] Product Selection Permitted - Diclofenac Sodium 75 mg Oral Tablet Sustained Release - take 1 tablet by ORAL route 2 times per day; 30 tablet; Refills: 0, Product [facility] Selection Permitted Signatures: Dispatcher [employer] Keagan Salgado MD MD kdr Mickail, Joel, PA PA jmm Wise, Tara, RN RN tw2 Nancy Guy RN RN ss7
--- NOTE | 2021-11-27 14:55 | ER ---
Nurse's Notes [facility] Name: Nuvia Blandon Jr Age: 55 yrs Sex: Male : 1965 Arrival Date: 11/27/2021 Time: 12:00 Bed 10 Private MD: Diagnosis: Intercostal Strain Presentation: 11/27 12:18 Chief complaint: Patient states: i broke my ribs Oct 16. at least 3 ribs. it is still tw2 bothering me. it was starting to feel better. but about 2 weeks ago i got a cold and was coughing real bad. got over the cough but this pain just stayed. Coronavirus screen: At this time, the client does not indicate any symptoms associated with coronavirus-19. Ebola Screen: Patient denies travel to an Ebola-affected area in the 21 days before illness onset. Initial Sepsis Screen: Does the patient meet any 2 criteria? No. Patient's initial sepsis screen is negative. Does the patient have a suspected source of infection? No. Patient's initial sepsis screen is negative. Risk Assessment: Do you want to hurt yourself or someone else? Patient reports no desire to harm self or others. Onset of symptoms was November 27, 2021. 12:18 Method Of Arrival: Ambulatory tw2 12:18 Acuity: CRIS 4 tw2 Triage Assessment: 12:22 General: Appears uncomfortable, well groomed, Behavior is calm, cooperative, tw2 appropriate for age. Pain: Complains of pain in LEFT ribs. Historical: - Allergies: 12:22 Bactrim (Hives); tw2 12:22 Morphine; nauseous; tw2 12:22 PENICILLINS (Hives); tw2 - Home Meds: 12:22 CellCept Oral [Active]; metformin 500 mg Oral tab 1 tab 2 times per day [Active]; tw2 Magnesium Oxide Oral [Active]; Sodium Bicarbonate Oral [Active]; pantoprazole oral [Active]; Vitamin D Oral [Active]; ursodiol Oral [Active]; tacrolimus oral [Active]; - PMHx: 12:22 cancer-liver; Cirrhosis; Hepatitis; C; liver transplant; tw2 - Immunization history:: Adult Immunizations. - Social history:: Smoking status: . Screenin:39 Abuse screen: Denies threats or abuse. Nutritional screening: No deficits noted. ss7 Tuberculosis screening: No symptoms or risk factors identified. Fall Risk None identified. Assessment: 12:39 General: Appears in no apparent distress. uncomfortable, Behavior is calm, cooperative, ss7 appropriate for age. Pain: Complains of pain in left rib and radiates anteriorly to the front. Neuro: No deficits noted. Cardiovascular: Heart tones S1 S2. Respiratory: Breath sounds are clear bilaterally. GI: Abdomen is round distended, Bowel sounds present X 4 quads. : No deficits noted. EENT: No deficits noted. Derm: No deficits noted. Musculoskeletal: Reports pain in bilateral ribs and back. Vital Signs: 12:18 BP 125 / 75; Pulse 110; Resp 17; Temp 97.9(TE); Pulse Ox 97% on R/A; Weight 111.58 kg tw2 (R); Height 5 ft. 7 in. (170.18 cm) (R); Pain 10/10; 12:39 BP 129 / 94; Pulse 98; Resp 22; Pulse Ox 100% on R/A; ss7 14:25 BP 161 / 88; Pulse 93; Resp 18; Pulse Ox 96% on R/A; ss7 12:18 Body Mass Index 38.53 (111.58 kg, 170.18 cm) tw2 ED Course: 12:00 Patient arrived in ED. am2 12:22 Triage completed. tw2 12:30 Arm band placed on. tw2 12:31 Nancy Guy, DYLAN is Primary Nurse. ss7 12:32 Brad Lambert PA is PHCP. [facility] 12:32 Keagan Wallace MD is Attending Physician. [facility] 12:39 Patient has correct armband on for positive identification. Call light in reach. ss7 12:39 No provider procedures requiring assistance completed. ss7 13:02 PO fluids given. ss7 13:37 Chest Single View XRAY In Process Unspecified. EDMS 15:12 Patient did not have IV access during this emergency room visit. ss7 Administered Medications: 13:22 Drug: fentaNYL (PF) 50 mcg Route: IM; Site: right vastus lateralis; ss7 15:12 Drug: Ketorolac 30 mg Route: IM; Site: left vastus lateralis; ss7 Outcome: 14:54 Discharge ordered by . m 15:12 Discharged to home ss7 15:12 Condition: good 15:12 Discharge instructions given to patient, Spouse to drive pt home. 15:13 Patient left the ED. ss7 Signatures: Dispatcher [employer] Brad Carrillo PA PA jmm Wise, Tara RN RN tw2 Sara Chan am2 Nancy Guy, DYLAN RN ss7
[2021-11-27 16:06] VITALS: TEMP 97.9
[2021-11-27 16:10] VITALS: BP 161/88; O2SAT 96
== END 2021-11-27 15:13 | disposition home or self-care (01) ==
LOC: ER 11:59
DX: S29.011A Strain of muscle and tendon of front wall of thorax, initial encounter (principal); Z94.4 Liver transplant status; Z88.0 Allergy status to penicillin; Z88.1 Allergy status to other antibiotic agents; Z88.5 Allergy status to narcotic agent
CPT/HCPCS: 71045; 96372; 99283

== ENCOUNTER 2022-04-03 13:15 | Emergency (ER) | payer OTHER ==
[2022-04-03] MEDS ORDERED: HYDROMORPHONE HCL 1 MG/ML INJ ONE ×2 (14:31→18:23)
[2022-04-03] MEDS ORDERED: ONDANSETRON 4 MG/2 ML VIAL ONE (14:31)
[2022-04-03 14:50] LABS: Absolute Lymphocytes (CBC) 0.2 K/uL (0.7-4.9); Hematocrit 44.5 % (39.6-49.0); Lymphocytes % 4.5 % (15.3-44.8); MCV 85.9 fL (80-100); MPV 9.3 fL (7.6-11.3); RBC Red Blood Cell Count 5.18 M/uL (4.33-5.43)
[2022-04-03 15:55] LABS: Albumin 3.3 g/dL (3.4-5.0); Bilirubin Total 0.6 mg/dL (0.2-1.0); Protein, Total 6.6 g/dL (6.4-8.2)
[2022-04-03 15:56] LABS: Potassium 4.2 mmol/L (3.5-5.1)
--- NOTE | 2022-04-03 17:02 | RAD REPORT ---
EXAM DESCRIPTION: CT - Angio Aorta For Dissection - 04/03/2022 4:33 pm CLINICAL HISTORY: . Chest and abd pain COMPARISON: October 2021 TECHNIQUE: Computed tomography angiography of the chest, abdomen pelvis were obtained. 100 cc Isovue 370 was administered intravenously. Coronal and sagittal reconstruction were performed. MIP 3D reconstruction was performed All CT scans are performed using dose optimization technique as appropriate and may include automated exposure control or mA/KV adjustment according to patient size. FINDINGS: An aortic dissection is not seen. An aortic aneurysm is not displayed. The celiac, SMA and JEZ are patent . A lung consolidation is not present. A pericardial effusion is not seen. A pleural effusion is not no norm. Spleen, pancreas,adrenals and kidneys demonstrate no significant abnormality. There no evidence diverticulitis. Marked laxity of the abdominal wall. Diastases of the rectus abdominis muscles 20 centimeters. A port ion of the liver extends through the diastases Left anterolateral ventral hernia. It contains a portion of colon. The neck measures 5 centimeters. T iny umbilical hernia Abdominal varices. Large right hydrocele IMPRESSION: Negative for an aortic dissection. Large right hydrocele
--- NOTE | 2022-04-03 17:30 | ER ---
Nurse's Notes [facility] Name: Nuvia Blandon Jr Age: 56 yrs Sex: Male : 1965 Arrival Date: 04/03/2022 Time: 13:17 Bed 8 Private MD: Diagnosis: Coronavirus infection, unspecified;Hydrocele, unspecified Presentation: 04/03 13:39 Chief complaint: Patient states: Pain from abdomen to feet x 1 day, denies N/V/D. jl7 Coronavirus screen: Vaccine status: Patient reports being unvaccinated. At this time, the client does not indicate any symptoms associated with coronavirus-19. Ebola Screen: No symptoms or risks identified at this time. Initial Sepsis Screen: Does the patient meet any 2 criteria? No. Patient's initial sepsis screen is negative. Does the patient have a suspected source of infection? No. Patient's initial sepsis screen is negative. Risk Assessment: Do you want to hurt yourself or someone else? Patient reports no desire to harm self or others. Onset of symptoms was April 03, 2022. 13:39 Method Of Arrival: Ambulatory [facility] 13:39 Acuity: CRIS 3 jl7 Triage Assessment: 13:40 General: Appears in no apparent distress. uncomfortable, Behavior is cooperative, jl7 anxious. Pain: Complains of pain in abdomen Pain radiates to right foot and left foot Pain currently is 11 out of 10 on a pain scale. Historical: - Allergies: 13:40 Bactrim (Hives); jl7 13:40 Morphine; nauseous; jl7 13:40 PENICILLINS (Hives); jl7 - PMHx: 13:40 cancer-liver; Cirrhosis; Hepatitis; C; liver transplant; jl7 - Immunization history:: Client reports having NOT received the Covid vaccine. - Social history:: Smoking status: Patient denies any tobacco usage or history of. Screenin:38 Abuse screen: Denies threats or abuse. Denies injuries from another. Nutritional ph screening: No deficits noted. Tuberculosis screening: No symptoms or risk factors identified. Fall Risk None identified. Assessment: 14:45 General: Appears in no apparent distress. uncomfortable, Behavior is calm, cooperative, ph appropriate for age, Reports fever for 0-12 hours. Pain: Complains of pain in abdomen, right leg and left leg. Neuro: Level of Consciousness is awake, alert, obeys commands, Oriented to person, place, time, situation. Cardiovascular: Capillary refill < 3 seconds in bilateral fingers Patient's skin is warm and dry. Respiratory: Airway is patent Respiratory effort is even, unlabored. Derm: Skin is healthy with good turgor, Skin is pink, warm \\T\\ dry. Musculoskeletal: Circulation, motion, and sensation intact. Range of motion: intact in all extremities. Vital Signs: 13:39 BP 137 / 92; Pulse 97; Resp 17; Temp 99.9; Pulse Ox 97% on R/A; Weight 108.86 kg; jl7 Height 5 ft. 7 in. (170.18 cm); Pain 10/10; 15:20 BP 128 / 87; Pulse 101; Resp 18; Pulse Ox 98% on R/A; ph 16:30 BP 136 / 98; Pulse 100; Resp 18; Pulse Ox 99% on R/A; ph 17:30 BP 123 / 85; Pulse 87; Resp 16; Pulse Ox 97% on R/A; ph 18:59 BP 118 / 78; Pulse 89; Resp 18; Temp 98.9; Pulse Ox 98% on R/A; ph 13:39 Body Mass Index 37.59 (108.86 kg, 170.18 cm) jl7 ED Course: 13:17 Patient arrived in ED. rg4 13:40 Triage completed. jl7 13:40 Arm band placed on right wrist. jl7 13:47 COVID-19 SARS RT PCR (Document "Date of Onset" if Symptomatic) Sent. zm 13:50 Basilio Elam NP is PHCP. pm1 13:50 Keagan Wallace MD is Attending Physician. pm1 13:56 Yenny Francisco, DYLAN is Primary Nurse. ph 14:35 Initial lab(s) drawn, by me, sent to lab. Missed attempt(s): 22 gauge in left forearm. dh3 Bleeding controlled, band aid applied, catheter tip intact. 14:37 Patient has correct armband on for positive identification. Bed in low position. Call ph light in reach. Pulse ox on. NIBP on. 14:42 Inserted saline lock: 20 gauge in left antecubital area, using aseptic technique. dh3 16:35 Angio Aorta For Dissection In Process Unspecified. EDMS 18:58 No provider procedures requiring assistance completed. IV discontinued, intact, ph bleeding controlled, No redness/swelling at site. Pressure dressing applied. Administered Medications: 14:48 Drug: Zofran (Ondansetron) 4 mg Route: IVP; Site: left antecubital; ph 19:00 Follow up: Response: No adverse reaction ph 14:50 Drug: Dilaudid (HYDROmorphone) 1 mg Route: IVP; Site: left antecubital; ph 19:00 Follow up: Response: No adverse reaction; Pain is decreased; RASS: Alert and Calm (0) ph 18:30 Drug: Dilaudid (HYDROmorphone) 1 mg Route: IVP; Site: left antecubital; ph 19:00 Follow up: Response: No adverse reaction; Pain is decreased; RASS: Alert and Calm (0) ph Medication: 14:38 VIS not applicable for this client. ph Outcome: 17:30 Discharge ordered by MD. pm1 18:59 Discharged to home ambulatory, with significant other. ph 18:59 Condition: good 18:59 Discharge instructions given to patient, Instructed on discharge instructions, follow up and referral plans. medication usage, Demonstrated understanding of instructions, follow-up care, medications, Prescriptions given X 1. 19:09 Patient left the ED. ph Signatures: Dispatcher [employer] EDMS Yenny Francisco RN RN ph Basilio Elam, JEREMY DIRECTOR [place] pm1 Anyi Nicolas rg4 Quang Siegel RN RN jl7 Veronica Marin 3 Phuong Schmidt
--- NOTE | 2022-04-03 17:30 | EDPHYS ---
Physician Documentation [facility] Name: Nuvia Blandon Jr Age: 56 yrs Sex: Male : 1965 Arrival Date: 04/03/2022 Time: 13:17 Bed 8 Private MD: ED Physician Keagan Wallace HPI: 04/03 14:13 This 56 yrs old Male presents to ER via Ambulatory with complaints of Pain All pm1 Over. 14:13 The patient presents with pain all over his body, and is specifying that it starts from pm1 his abdomen and goes down both his legs. 14:13 Onset: The symptoms/episode began/occurred yesterday. Associated signs and symptoms: pm1 Pertinent negatives: nausea, vomiting, and diarrhea, chest pain, dysuria, fever, shortness of breath. The symptoms are described as achy. Modifying factors: The symptoms are alleviated by nothing, the symptoms are aggravated by nothing. Severity of pain: in the emergency department the pain is actually worse. The patient has not experienced similar symptoms in the past. The patient has not recently seen a physician. negative for covid vaccinations. Historical: - Allergies: 13:40 Bactrim (Hives); jl7 13:40 Morphine; nauseous; jl7 13:40 PENICILLINS (Hives); jl7 - PMHx: 13:40 cancer-liver; Cirrhosis; Hepatitis; C; liver transplant; jl7 - Immunization history:: Client reports having NOT received the Covid vaccine. - Social history:: Smoking status: Patient denies any tobacco usage or history of. ROS: 14:13 Constitutional: Negative for fever, chills, and weight loss, Cardiovascular: Negative pm1 for chest pain, palpitations, and edema, Respiratory: Negative for shortness of breath, cough, wheezing, and pleuritic chest pain. 14:13 Back: Negative for injury and pain, MS/Extremity: Negative for injury and deformity, Skin: Negative for injury, rash, and discoloration. 14:13 Neuro: Negative for headache, weakness, numbness, tingling, and seizure. 14:13 Abdomen/GI: Positive for abdominal pain, Negative for nausea, vomiting, and diarrhea. 14:13 All other systems are negative. Exam: 14:13 Constitutional: This is a well developed, well nourished patient who is awake, alert, pm1 and in no acute distress. Head/Face: Normocephalic, atraumatic. 14:13 Back: No spinal tenderness. No costovertebral tenderness. Full range of motion. Skin: Warm, dry with normal turgor. Normal color with no rashes, no lesions, and no evidence of cellulitis. MS/ Extremity: Pulses equal, no cyanosis. Neurovascular intact. Full, normal range of motion. 14:13 Eyes: Exam is negative for acute changes, Extraocular movements: no acute changes, Conjunctiva: no acute changes, no injection. 14:13 ENT: Exam is negative for acute changes, Mouth: no acute changes, Lips: normal, moist, Oral mucosa: normal, pink and intact, moist. 14:13 Cardiovascular: Exam negative for acute changes, Rate: normal, Rhythm: regular, Pulses: no pulse deficits are appreciated, Heart sounds: normal. 14:13 Respiratory: Exam negative for acute changes, respiratory distress, shortness of breath, Breath sounds: are clear throughout. 14:13 Abdomen/GI: Inspection: obese large ventral hernia, Palpation: abdomen is soft and non-tender, in all quadrants. 14:13 Neuro: Exam negative for acute changes, Orientation: is normal, Mentation: is normal, Motor: is normal, moves all fours. Vital Signs: 13:39 BP 137 / 92; Pulse 97; Resp 17; Temp 99.9; Pulse Ox 97% on R/A; Weight 108.86 kg; jl7 Height 5 ft. 7 in. (170.18 cm); Pain 10/10; 15:20 BP 128 / 87; Pulse 101; Resp 18; Pulse Ox 98% on R/A; ph 16:30 BP 136 / 98; Pulse 100; Resp 18; Pulse Ox 99% on R/A; ph 17:30 BP 123 / 85; Pulse 87; Resp 16; Pulse Ox 97% on R/A; ph 18:59 BP 118 / 78; Pulse 89; Resp 18; Temp 98.9; Pulse Ox 98% on R/A; ph 13:39 Body Mass Index 37.59 (108.86 kg, 170.18 cm) jl7 MDM: 13:55 Patient medically screened. pm1 17:27 Data reviewed: vital signs. Data interpreted: Pulse oximetry: on room air is 98 %. pm1 Interpretation: normal. Counseling: I had a detailed discussion with the patient and/or guardian regarding: the historical points, exam findings, and any diagnostic results supporting the discharge/admit diagnosis, lab results, radiology results, the need for outpatient follow up, to return to the emergency department if symptoms worsen or persist or if there are any questions or concerns that arise at home. 04/03 13:44 Order name: COVID-19 SARS RT PCR (Document "Date of Onset" if Symptomatic); Complete jl7 Time: 14:53 04/03 14:09 Order name: CBC with Diff; Complete Time: 15:16 pm1 04/03 14:09 Order name: CMP; Complete Time: 16:20 pm1 04/03 14:09 Order name: Lipase; Complete Time: 16:20 pm1 04/03 14:09 Order name: CT Aorta for Dissection pm1 04/03 14:13 Order name: Angio Aorta For Dissection; Complete Time: 17:03 EDMS 04/03 14:09 Order name: IV Saline Lock; Complete Time: 14:45 pm1 04/03 14:09 Order name: Labs collected and sent; Complete Time: 14:45 pm1 04/03 15:04 Order name: Labs - recollect needed: recollect green top; Complete Time: 15:20 eb Administered Medications: 14:48 Drug: Zofran (Ondansetron) 4 mg Route: IVP; Site: left antecubital; ph 19:00 Follow up: Response: No adverse reaction ph 14:50 Drug: Dilaudid (HYDROmorphone) 1 mg Route: IVP; Site: left antecubital; ph 19:00 Follow up: Response: No adverse reaction; Pain is decreased; RASS: Alert and Calm (0) ph 18:30 Drug: Dilaudid (HYDROmorphone) 1 mg Route: IVP; Site: left antecubital; ph 19:00 Follow up: Response: No adverse reaction; Pain is decreased; RASS: Alert and Calm (0) ph Disposition: 04/04 07:38 Co-signature as Attending Physician, Keagan Wallace MD I agree with the assessment and kdr plan of care. Disposition Summary: 04/03/22 17:30 Discharge Ordered Location: Home pm1 Problem: new pm1 Symptoms: have improved pm1 Condition: Stable pm1 Diagnosis - Coronavirus infection, unspecified pm1 - Hydrocele, unspecified pm1 Followup: pm1 - With: Emergency Department - When: As needed - Reason: Worsening of condition Followup: pm1 - With: Private Physician - When: 2 - 3 days - Reason: Recheck today's complaints, Continuance of care, Re-evaluation by your physician Discharge Instructions: - Discharge Summary Sheet pm1 - COVID-19 pm1 - COVID-19 Frequently Asked Questions pm1 - 10 Things You Can Do to Manage Your COVID-19 Symptoms at Home - [facility] pm1 - COVID-19: Quarantine vs. Isolation - [facility] pm1 Forms: - Medication Reconciliation Form pm1 - Thank You Letter pm1 - Antibiotic Education pm1 - Prescription Opioid Use pm1 Prescriptions: - Guaifenesin AC 10-100 mg/5 mL Oral Liquid - take 10 milliliters by ORAL route every 4 hours As needed; 240 milliliter; pm1 Refills: 0, Product Selection Permitted Signatures: Dispatcher [employer] EDKeagan Barrett MD MD [facility] Yenny Francisco RN RN Basilio Servin, BIOMASS TECHNICIAN BIOMASS TECHNICIAN pm1 Quang Siegel RN RN jl7 Evelia Turcios
[2022-04-03 19:43] VITALS: BP 118/78; TEMP 98.9; O2SAT 98
== END 2022-04-03 19:09 | disposition home or self-care (01) ==
LOC: ER 13:15
DX: U07.1 COVID-19 (principal); N43.3 Hydrocele, unspecified; Z94.4 Liver transplant status; Z85.05 Personal history of malignant neoplasm of liver; Z88.1 Allergy status to other antibiotic agents; Z88.5 Allergy status to narcotic agent
CPT/HCPCS: 85025; 36415; 83690; 80053; 71275; 74175; 96375; 96374; 99284; U0003; Q9967; J1170 ×2; J2405

== ENCOUNTER 2022-08-10 03:43 | Emergency (ER) | payer OTHER ==
--- OUTSIDE RECORDS SUMMARY | 2022-08-10 03:46 | XMS REPORT | Continuity of Care Document ---
:1965 Author Organization [facility] t Address [address] [place] [place] [address] Care Team Providers Name Role Phone Louis WILKS, heaven Primary Care Physician Hiram WILKS, Anabelle Kohler Attending Clinician [phone] Drew WILKS, Felisha Attending Clinician Amandeep RICHARDSON, Dorys Attending Clinician Unavailable HANS RUGGIERO Attending Clinician Unavailable YUNIOR GUNN Attending Clinician Unavailable ASKED, NO Attending Clinician Unavailable Payers Payer Name Policy Type Policy Number Effective Date Expiration Date S bere MEDICARE PART A [id number] 2010 AND B 00:00:00 Problems Condition Condition Condition Status Onset Resolution Last Treating Co mments Source Name Details Category Date Date Treatment Clinician Date Osteopenia Osteopenia Disease Active M ethodi of of 3-10 st multiple multiple 00:00: Hospit a sites sites 00 l Other Other Disease Active Methodi hyperlipid hyperlipid 3-10 st emia emia 00:00: Hospita 00 l Liver Liver Disease Active 2018-10 Methodi replaced replaced 0-07 st by by 00:00: Hospita transplant transplant 00 l Anemia Anemia Disease Active Methodi 5-15 st 00:00: Hospita 00 l Chronic Chronic Disease Active Methodi hepatitis hepatitis 15 st C virus C virus 00:00: Hospita infection infection 00 l Diabetes Diabetes Disease Active Metho di mellitus mellitus 02-15 st 00:00: Hospita 00 l Diaphragma Diaphragma Disease Active M ethodi tic hernia tic hernia 02-15 st 00:00: Hospita 00 l 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 02-15 st 00:00: Hospita 00 l Esophageal Esophageal Disease Active M ethodi varices varices 15 st 00:00: Hospita 00 l Heartburn Heartburn Disease Active Met hodi 02-15 st 00:00: Hospita 00 l Indigestio Indigestio Disease Active M ethodi n n 02-15 00:00: Hospita 00 l 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 02-15 st diabetes diabetes 00:00: Hospit a mellitus mellitus 00 l Vitamin D Vitamin D Disease Active Met hodi deficiency deficiency 02-15 00:00: Hospita 00 l Morbid Morbid Disease Active Methodi obesity obesity 10-29 st 00:00: Hospita 00 l Incisional Incisional Disease Active M ethodi hernia hernia 05-11 st 00:00: Hospita 00 l Abdominal Abdominal Disease Active Met hodi pain, pain, 03-27 st right right 00:00: Hospita upper upper 00 l quadrant quadrant Disorder Disorder Disease Active Metho di of liver of liver 03-27 st 00:00: Hospita 00 l Allergies, Adverse Reactions, Alerts Allergy Allergy Status Severity Reaction(s) Onset Inactive Treating Comm ents Source Name Type Date Date Clinician Sulfamet Propensi Active [facility] out [facility] adverse 00:00: blisters. [facility] oprim reaction 00 Itching. Center s Penicill Propensi Active Hives. [facility] adverse [facility]: Medical reaction 00 Center s Sulfamet Propensi Active Rash Method i hoxazole ty to 03-26 [facility] -[facility] adverse 00:00: Hospita oprim reaction 00 l s to drug Penicill Propensi Active Hives Method i ins ty to 03-26 st adverse 00:00: Hospita reaction 00 l s to drug Family History Family Member Diagnosis Comments Start Date Stop Date Source Natural mother Diabetes [facility] Other Breast cancer [facility] Social History Social Habit Start Date Stop Date Quantity Comments Source History of Current smoker [facility] Hospital Alcohol intake 2021-12-18 2021-12-18 Current [facility] 00:00:00 00:00:00 non-drinker of Hospital alcohol (finding) Tobacco use and 2016-05-11 2016-05-[address] [facility] [facility] exposure 00:00:00 00:00:00 [facility] Tobacco Comment 2016-05-11 2016-05-11 has quit[address] [facility] 00:00:00 00:00:00 remeber [facility] Urmila white. >1yr. Sex Assigned At [birth year] [facility] 00:00:00 00:00:00 Hospital Smoking Status Start Date Stop Date Source Ex-smoker 2016-03-31 00:00:00 2016-03-31 [facility]:00:[facility]ations Ordered Filled Start Stop Current Ordering Indication Dosage Frequency Signature Comments Components Source Medication Medication Date Date Medication? Clinician (SIG) Name Name insulin Yes 20U [id number] Inject Me thodi ASPART 12-13 [id number] 20-25 st (NovoLOG 00:00: 3D Units Hospita Flexpen 00 under the l U-100 skin 3 Insulin) (three) 100 unit/mL times a (3 mL) day with insulin pen meals. Patient on sliding. insulin Yes 40U Q.5D Inject Methodi detemir 312 40-50 st U-100 00:00: Units Hospita (LEVEMIR) 00 under the l 100 unit/mL skin 2 injection (two) times a day. metFORMIN Yes 1000mg Q.5D Take 1 [facility] (GLUCOPHAGE 3-[address] ) 1,000 mg 00:00: (1,000 mg Ho spita tablet 00 total) by l mouth 2 (two) times a day with meals. NOT SURE ON DOSE. pravastatin Yes 20mg QD Take 1 [facility] (PRAVACHOL) 3-12 tablet (20 st 20 MG 00:00: mg total) Hospita tablet 00 by mouth l daily. liraglutide 2021- No 1.8mg QD Inject 0.3 Methodi (Victoza 3-12 03-13 mL (1.[address] 3-Ismael) 0.6 00:00: 05:59 total) [facility]osp [facility] mg/0.1 mL 00 :00 under the l (18 mg/3 skin daily mL) pen with injector breakfast. blood sugar Yes Check bs 4 Methodi diagnostic 2-[address] strips 00:00: day DX Hospita (Accu-Chek 00 E11.65On l Cathie Plus insilun test strp) strip test strips lancets Yes Check bs Method i (Accu-Chek 2-[address] FastClix 00:00: E11.65On Hospi ta [place] 00 insulin l Dev) misc pen needle, Yes [id number] 1{devic Q.2D 1 Device 5 Methodi diabetic 31 2-23 e} (five) st gauge x 00:00: times a Hospita 02/16" 00 day. DX l needle E11.65 calcium 2019-10 Yes 600mg QD Chew 600 Metho di carbonate-v 2-[address] itamin D3 00:00: OTC Hospita (Calcium 00 l 600 with Vitamin D3) 600 mg(1,500mg) -400 unit tablet,chew able mycophenola Yes [id number] 500mg Q.5D Take 1 Methodi te 6-[address] (CELLCEPT) 00:00: (500 mg [facility] 500 mg 00 total) by l tablet mouth 2 (two) times a day. SODIUM 2018-10 Yes Take by Methodi BICARBONATE 0-[address] ORAL 09:51: 650mg Hospita 22 l rOPINIRole 2018-10 Yes .25mg Take 0.25 M ethodi (REQUIP) 0-[address] 0.25 MG 09:51: mouth. Hospita tablet 22 l pantoprazol 2018-10 Yes 40mg Take 40 mg Methodi e 0-[address] (PROTONIX) 09:51: Hospita 40 MG EC 22 l tablet MAGNESIUM 2018-10 Yes Take by Metho di OXIDE ORAL 0-[address] 09:51: Hospita 22 l calcium 2018-10 Yes 1{tbl} Q.75026213 Chew 1 Methodi carbonate 0-[id number] (TUMS) 200 09:51: 3D (three) [facility] mg calcium 22 times a l (500 mg) day. chewable tablet ursodiol 2018-10 Yes 300mg Q.5D Take 300 Meth [facility] (ACTIGALL) 0-[address] 300 mg 09:51: mouth 2 Hospita capsule 22 (two) l times a day. albuterol 2018-10 Yes 2{puff} Q6H Inhale 2 M ethodi (PROAIR 0-[address] HFA,PROVENT 09:51: every 6 Hos [place] 22 (six) l HFA,VENTOLI hours as N HFA) 90 needed for mcg/actuati wheezing. on inhaler tacrolimus Yes [id number] 2mg Q.5D Take 2 Methodi (PROGRAF) 1 7-[address] MG capsule 00:00: (2 mg Hospit a 00 total) by l mouth 2 (two) times a day. blood-gluco Yes Check BS Me thodi se meter 5-[address] (ACCU-CHEK 00:00: insulin [facility]osp [facility] CATHIE PLUS 00 l METER) misc calcium Yes 1{tbl} Q.65540246 Take [address] carbonate 8-11 [id number] tablet by [facility] (TUMS) 500 12:28: 3D mouth 3 Medi bala mg chewable 15 (three) Cente r tablet times daily. ergocalcife Yes [id number] Q7D Take [facility] rol 8-11 50,000 [facility] (ERGOCALCIF 12:28: Units by Ga dical JEREMIAS) 15 mouth once Center 50,000 unit a week. capsule gabapentin Yes 300mg Q.59461804 Take [address] (NEURONTIN) 8-11 [id number] mg by L ukes 300 MG 12:28: 3D mouth 3 Medical capsule 15 (three) Center times daily. mycophenola Yes 1000mg Q.5D Take 1,[address] te 8-11 mg by [facility] (CELLCEPT) 12:28: mouth 2 Medi bala 250 mg 15 (two) Center capsule times daily. pantoprazol Yes 40mg QD Take [address] e 8-11 by mouth [facility] (PROTONIX) 12:28: daily. Medic al 40 MG 15 Center tablet rOPINIRole 2015- Yes .25mg QD Take 0.[address] (REQUIP) 8-11 mg by [facility] 0.25 MG 12:28: mouth Medical tablet 15 nightly. Center sodium 2015- Yes 1{tbl} Q.5D Take [address] bicarbonate 8-11 tablet by Priti es 648 MG 12:28: mouth 2 Medical tablet 15 (two) Center times daily. ursodiol Yes 300mg Q.5D Take [address] (ACTIGALL) 8-11 mg by [facility] 300 mg 12:28: mouth 2 Medical capsule 15 (two) Center times daily. albuterol Yes 2{puff} Inhale [address] HFA 8-11 puffs by [facility] (VENTOLIN 12:28: mouth via Med ical HFA) 90 15 inhaler Center mcg/actuati every 6 on inhaler (six) hours as needed for Wheezing. Vital Signs Vital Name Observation Time Observation Value Comments Source Systolic blood 2021-12-22 13:18:00 134 mm[Hg] [facility] pressure Diastolic blood 2021-12-22 13:18:00 80 mm[Hg] [facility] pressure Heart rate 2021-12-22 13:18:00 92 /min [facility] Body temperature 2021-12-22 13:18:00 36.83 [place] Respiratory rate 2021-12-22 13:18:00 18 /min [facility] Body height 2021-12-22 13:18:00 163.8 cm [facility] Body weight 2021-12-22 13:18:00 113.445 kg [facility] BMI 2021-12-22 13:18:00 42.27 kg/m2 [facility] Oxygen saturation in 2021-12-22 13:18:00 97 /min [facility] Arterial blood by Pulse oximetry Procedures Procedure Date / Time Performing Clinician Source Performed [id number] TACROLIMUS LEVEL, 2021-12-22 15:22:00 Hans Ruggiero [facility] RANDOM COMPREHENSIVE METABOLIC 2021-12-22 15:22[facility] WITH INR 2021-12-22 15:22:00 Hans Ruggiero [facility] MAGNESIUM LEVEL 2021-12-22 15:22:00 Monik, [facility] HC COMPLETE BLD COUNT 2021-12-22 15:22:00 Hans Ruggiero [facility] W/AUTO DIFF ESTIMATED GFR 2021-12-22 15:22[facility]00 [facility]BD[facility] W WO CONTRAST 2021-12-18 19:38:00 Hans Ruggiero [facility] NM BONE SCAN WHOLE BODY 2021-12-18 17:51[facility]AST 2021-12-18 16:30:00 MonikHans ramirez [facility] CT CHEST WO CONTRAST 2021-12-18 16:30:00 Hans Ruggiero [facility] POC CREATININE 2021-12-18 15:30:00 [facility] ESTIMATED GFR 2021-12-18 15:30:00 Monik, [facility] HC COMPLETE BLD COUNT 2021-12-18 14:53:00 Hans Ruggiero [facility] W/AUTO DIFF COMPREHENSIVE METABOLIC 2021-12-18 14:53:00 Hans Ruggiero [facility] PANEL MAGNESIUM LEVEL 2021-12-18 14:53:[address] [facility] HEMOGLOBIN A1C 2021-12-18 14:53:00 Monik, [facility] LIPID PANEL 2021-12-18 14:53:00 Monik, [facility] ALPHA FETOPROTEIN 2021-12-18 14:53:00 Hans Ruggiero [facility] CARCINOEMBRYONIC ANTIGEN 2021-12-18 14:53:00 MonikHans martin [facility] (CEA) PARTIAL THROMBOPLASTIN TIME 2021-12-18 14:53:00 Monik, [facility] (PTT) PROTHROMBIN TIME WITH INR 2021-12-18 14:53:00 MonikHans ramirez [facility] VITAMIN D 1,25 DIHYDROXY 2021-12-18 14:53:00 [facility] LEVEL, SERUM CYTOMEGALOVIRUS BY PCR 2021-12-18 14:53:00 [facility] VITAMIN D 25 HYDROXY LEVEL 2021-12-18 14:53:00 [facility] THYROID STIMULATING HORMONE 2021-12-18 14:53:00 [facility] GGT 2021-12-18 14:53:00 [facility] IKNOW VIRACOR 2021-12-18 14:53:00 [facility] FK506 TACROLIMUS LEVEL, 2021-12-18 14:53:00 [facility] RANDOM HEPATOCELLULAR CARCINOMA 2021-12-18 14:53:00 [facility] MARKER PANEL CANCER ANTIGEN 19-9 2021-12-18 14:53:00 [facility] HEPATITIS C VIRUS (HCV), 2021-12-18 14:53:00 [facility] QUANTITATIVE PCR ESTIMATED GFR 2021-12-18 14:53:00 [facility] DONOR SPECIFIC ANTIBODY 2021-12-18 14:53:00 [facility] BONE DENSITY 2021-12-18 14:16:42 [facility] BONE DENSITY PERIPHERAL 2021-12-18 14:16:09 [facility] XR CHEST 2 VW 2021-12-18 13:47:00 [facility] Plan of Care Planned Activity Planned Date Details Comments Source Future Scheduled 2022-08-05 HEPATITIS B VACCINES [facility] Test 20:38:36 (1 of 3 - 3-dose series) [code = HEPATITIS B VACCINES (1 of 3 - 3-dose series)] Future Scheduled 2022-08-05 COVID-19 VACCINE (#1) [facility] Hospital Test 20:38:36 [code = COVID-19 VACCINE (#1)] Future Scheduled 2022-08-05 Pneumococcal Vaccine: [facility] Test 20:38:36 Pediatrics (0 to 5 Years) and At-Risk Patients (6 to 64 Years) (1 - PCV) [code = Pneumococcal Vaccine: Pediatrics (0 to 5 Years) and At-Risk Patients (6 to 64 Years) (1 - PCV)] Future Scheduled 2022-08-05 DIABETIC FOOT EXAM [facility] Test 20:38:36 [code = DIABETIC FOOT EXAM] Future Scheduled 2022-08-05 SHINGLES VACCINES (1 Met [facility] Test 20:38:36 of 2) [code = SHINGLES VACCINES (1 of 2)] Future Scheduled 2022-08-05 COLONOSCOPY SCREENING [facility] Test 20:38:36 [code = COLONOSCOPY SCREENING] Future Scheduled 2022-08-05 DIABETES: RETINAL EYE [facility] Test 20:38:36 EXAM [code = DIABETES: RETINAL EYE EXAM] Future Scheduled 2022-08-05 INFLUENZA VACCINE [facility] Test 20:38:36 [code = INFLUENZA VACCINE] Encounters Start End Encounter Admission Attending Care Care Encounter Source Date/Time Date/Time Type Type Clinicians Facility Department ID 2021-11-06 Outpatient MDA [facility] [id number] 18:41:17 [facility] 2021-12-22 2022-01-05 Office Anabelle Abraham 1.2.840.1 [id number] Methodi 09:45:00 13:42:20 Visit Felisha Russell 46024.1.[address] 3.430.2.7 Hospit a .3.228123 l .8 2021-12-24 2021-12-24 Orders Amandeep 1.2.840.1 [id number] Methodi 00:00:00 00:00:00 Only Dorys 87464.1.[address] 3.430.2.7 Hospit a .3.928069 l .8 2021-12-22 2021-12-22 Travel 1.2.840.1 1.2.719.795 [id number] Methodi 00:00:00 00:00:[address] 3.430.2.7 0.2.7.3.698 Ho spita .3.016526 084.8 l .8 2021-12-22 2021-12-22 Outpatient MONIK, [facility] [id number] [facility] 00:00:00 00:00:00 HANS [address] 2021-12-22 2021-12-22 Outpatient ABRAHAM, [facility] [id number] [facility] 00:00:00 00:00:00 ANABELLE [address] 2021-12-19 2021-12-19 Orders Amandeep, 1.2.840.1 [id number] Methodi 00:00:00 00:00:00 Only Dorys 64142.1.[address] 3.430.2.7 Hospit a .3.839654 l .8 2021-12-18 2021-12-18 [facility], 1.2.840.1 [id number] Methodi 13:45:00 23:59:00 Encounter Rafik Robert 04295.1.[address] 3.430.2.7 Hospit a .3.273396 l .8 2021-12-18 2021-12-18 [facility], 1.2.840.1 [id number] Methodi 13:07:01 13:44:00 Encounter Rafik Robert 75381.1.[address] 3.430.2.7 Hospit a .3.336821 l .8 2021-12-18 2021-12-18 [facility], 1.2.840.1 [id number] Methodi 10:01:52 13:06:00 Encounter Rafik Robert [address]49.1.[address] 3.430.2.7 Hospit a .3.352138 l .8 2021-12-18 2021-12-18 [facility], 1.2.840.1 [id number] Methodi 10:00:40 10:00:40 Encounter Rafik Robert [address]3438.1.[address] 3.430.2.7 Hospit a .3.019758 l .8 2021-12-18 2021-12-18 [facility], 1.2.840.1 [id number] Methodi 09:20:33 09:59:00 Encounter Rafik Robert [address]761.1.[address] 3.430.2.7 Hospit a .3.280992 l .8 2021-12-18 2021-12-18 [facility], 1.2.840.1 [id number] Methodi 08:27:41 09:19:00 Encounter Rafik Robert [address]294.1.[address] 3.430.2.7 Hospit a .3.798163 l .8 2021-12-18 2021-12-18 [facility], 1.2.840.1 [id number] Methodi 08:27:16 09:19:00 Encounter Rafik Robert [address]8027.1.[address] 3.430.2.7 Hospit a .3.515707 l .8 2021-12-18 2021-12-18 [facility], 1.2.840.1 [id number] Methodi 08:26:53 08:26:53 Encounter Rafik Robert 20909.1.[address] 3.430.2.7 Hospit a .3.308101 l .8 2021-12-18 2021-12-18 Outpatient MONIK, [facility] [id number] [facility] 00:00:00 00:00:00 HANS 261 Method i 2021-12-18 2021-12-18 Outpatient MONIK, [facility] [id number] [facility] 00:00:00 00:00:00 RAFIK 714 Method i 2021-12-18 2021-12-18 Outpatient MONIK, [facility] [id number] [facility] 00:00:00 00:00:00 NGAIK 713 Method i 2021-12-18 2021-12-18 Outpatient MONIK, [facility] 72 [facility] 00:00:00 00:00:00 RAFIK 715 Method i 2021-12-18 2021-12-18 Outpatient MONIK, [facility] 72 [facility] 00:00:00 00:00:00 RAFIK 270 Method i 2021-12-18 2021-12-18 Travel 1.2.840.1 [id number] [id number] Methodi 00:00:00 00:00:[address] 3.430.2.7 0.2.7.3.698 Ho spita .3.145495 084.8 l .8 2021-12-18 2021-12-18 Outpatient MONIK, [facility] 72 [facility] 00:00:00 00:00:00 RAFIK 999 Method i 2021-12-18 2021-12-18 Outpatient MONIK, [facility] 72 [facility] 00:00:00 00:00:00 RAFIK 253 Method i 2021-12-18 2021-12-18 Outpatient MONIK, [facility] [id number] [facility] 00:00:00 00:00:00 RAFIK 021 Method i 2021-12-18 2021-12-18 Outpatient MONIK, [facility] [id number] [facility] 00:00:00 00:00:00 RAFIK 000 Method i 2021-12-17 2021-12-17 Travel 1.2.840.1 1.2.832.700 [id number] Methodi 00:00:00 00:00:[address] 3.430.2.7 0.2.7.3.698 Ho spita .3.372466 084.8 l .8 2021-11-19 2021-11-19 Dallas Bernstein, 1.2.840.1 [id number] Methodi 00:00:00 00:00:00 Only Dorys 47932.1.[address] 3.430.2.7 Hospit a .3.230310 l .8 2020-12-112020-12-11 Outpatient SADHU, [facility] [id number] [facility] 00:00:00 00:00:00 YUNIOR [address] 2020-11-26 2020-11-26 Outpatient SADHU, [facility] [id number] [facility] 00:00:00 00:00:00 YUNIOR [address] 2020-11-26 2020-11-26 Outpatient SADHU, [facility] [id number] [facility] 00:00:00 00:00:00 YUNIOR [address] 2020-09-03 2020-09-03 Outpatient ABRAHAM, [facility] [id number] [facility] 00:00:00 00:00:00 ANABELLE [address] 2020-09-02 2020-09-02 Outpatient ABRAHAM, [facility] [id number] [facility] 00:00:00 00:00:00 ANABELLE [address] 2020-09-02 2020-09-02 Outpatient ABRAHAM, [facility] [id number] [facility] 00:00:00 00:00:00 ANABELLE [address] 2020-09-02 2020-09-02 Outpatient ABRAHAM, [facility] [id number] [facility] 00:00:00 00:00:00 ANABELLE [address] 2020-09-02 2020-09-02 Outpatient ABRAHAM, [facility] [id number] [facility] 00:00:00 00:00:00 ANABELLE [address] 2020-09-02 2020-09-02 Outpatient ABRAHAM, [facility] [id number] [facility] 00:00:00 00:00:00 ANABELLE [address] 2020-09-02 2020-09-02 Outpatient ABRAHAM, [facility] [id number] [facility] 00:00:00 00:00:00 ANABELLE [address] 2020-03-04 2020-03-04 Outpatient ABRAHAM, [facility] [id number] [facility] 00:00:00 00:00:00 ANABELLE [address] 2019-07-04 2019-07-04 Outpatient ASKED, NO [facility] [id number] [facility] 00:00:00 00:00:[address] 2019-07-04 2019-07-04 Outpatient ABRAHAM, [facility] [id number] [facility] 00:00:00 00:00:00 ANABELLE [address] 2019-07-04 2019-07-04 Outpatient HIRAM, [facility] [id number] [facility] 00:00:00 00:00:00 ANABELLE [address] 2019-07-04 2019-07-04 Outpatient HIRAM [facility] [id number] [facility] 00:00:00 00:00:00 ANABELLE [address] 2019-07-04 2019-07-04 Outpatient HIRAM [facility] [id number] [facility] 00:00:00 00:00:00 ANABELLE [address] Results This patient has no known results.
--- OUTSIDE RECORDS SUMMARY | 2022-08-10 03:46 | XMS REPORT | Clinical Summary ---
:1965 Author Organization [facility] [place] Address [facility] [place] [address] Care Team Providers Name Role Phone Ash Myers MD Primary Care Provider Evonne Villalobos MD Unavailable Cheryl Waggoner Unavailable Vitaliy Leon MD Unavailable Allergies Not on File Medications Not on file Active Problems Not on file Social History Tobacco Use Types Packs/Day Years Used Date Smoking Tobacco: Never Assessed Sex Assigned at Date Recorded Not on file Last Filed Vital Signs Not on file Plan of Treatment Not on file Results Not on fileafter 08/10/2021 Insurance Payer Benefit Plan / Subscriber ID Effective Dates Phone Addre ss Type Group MEDICARE MEDICARE PART [id number] 2010-Press[place] [phone] [facility] Medicare A AND B t 2 SOLUTIONS [address] [place] [id number] Care Teams 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
[2022-08-10 05:22] LABS: Absolute Lymphocytes (CBC) 0.5 K/uL (0.7-4.9); Hematocrit 46.4 % (39.6-49.0); Lymphocytes % 6.5 % (15.3-44.8); MCV 86.2 fL (80-100); MPV 8.5 fL (7.6-11.3); RBC Red Blood Cell Count 5.39 M/uL (4.33-5.43)
[2022-08-10 05:34] LABS: Albumin 3.4 g/dL (3.4-5.0); Bilirubin Total 1.1 mg/dL (0.2-1.0); Potassium 4.1 mmol/L (3.5-5.1); Protein, Total 7.4 g/dL (6.4-8.2)
--- NOTE | 2022-08-10 08:35 | RAD REPORT ---
EXAM DESCRIPTION: CT - Abdomen Pelvis W Contrast - 08/10/2022 6:48 am CLINICAL HISTORY: Abdominal pain/epigastric pain COMPARISON: April 2022 TECHNIQUE: Computed axial tomography of the abdomen pelvis was obtained. 100 cc Isovue-300 was admin istered intravenously. Oral contrast was not requested which limits evaluation of bowel and appendix All CT scans are performed using dose optimization technique as appropriate and may include automated exposure control or mA/KV adjustment according to patient size. FINDINGS: Hepatic transplant. Liver is normal size. Mild fatty liver The spleen measures 14 centimeters. Abdominal varices again demonstrated. The pancreas, adrenals and kidneys unremarkable. Marked laxity anterior abdominal wall. Diastases rectus abdominis muscles 22 centimeters. Portion of the left lobe of the liver and large and small bowel protrude through the diastases. No bowel obstruc tion. . There is no evidence of diverticulitis. Large right hydrocele IMPRESSION: Mild fatty liver Large right hydrocele
--- NOTE | 2022-08-10 08:51 | ER ---
Nurse's Notes [facility] Name: Nuvia Blandon Jr Age: 56 yrs Sex: Male : 1965 Arrival Date: 08/10/2022 Time: 03:49 Bed 12 Private MD: Diagnosis: Diarrhea, unspecified;Dehydration Presentation: 08/10 04:30 Chief complaint: Patient states: Nausea and diarrhea since last Wednesday getting ke1 worse. Coronavirus screen: Vaccine status: Patient reports being unvaccinated. Ebola Screen: No symptoms or risks identified at this time. Initial Sepsis Screen: Does the patient meet any 2 criteria?. Initial Sepsis Screen: Does the patient meet any 2 criteria? HR > 90 bpm. No. Patient's initial sepsis screen is negative. Does the patient have a suspected source of infection? No. Patient's initial sepsis screen is negative. Risk Assessment: Do you want to hurt yourself or someone else? Patient reports no desire to harm self or others. Onset of symptoms was August 05, 2022 at 08:00. 04:30 Method Of Arrival: Ambulatory ke1 04:30 Acuity: CRIS 3 ke1 Triage Assessment: 04:33 General: Appears uncomfortable, Behavior is appropriate for age. Pain: Denies pain. GI: ke1 Abdomen is distended, Bowel sounds present X 4 quads. Reports nausea. Historical: - Allergies: 04:33 Bactrim (Hives); ke1 04:33 Morphine; nauseous; ke1 04:33 PENICILLINS (Hives); ke1 - PMHx: 04:33 cancer-liver; Cirrhosis; Hepatitis; C; liver transplant; ke1 - Immunization history:: Client reports having NOT received the Covid vaccine. - Social history:: Smoking status: Patient denies any tobacco usage or history of. Screenin:34 Abuse screen: Denies threats or abuse. Nutritional screening: No deficits noted. ke1 Tuberculosis screening: No symptoms or risk factors identified. Fall Risk None identified. Assessment: 05:38 GI: Reports diarrhea. ke1 06:51 Reassessment: BM X 3 this shift, loose stool. ke1 Vital Signs: 04:02 BP 131 / 89; Pulse 97; Resp 17; Temp 98.9(O); Pulse Ox 95% on R/A; Weight 111.13 kg; mm9 Height 5 ft. 7 in. (170.18 cm); Pain 9/10; 04:30 BP 131 / 89; Pulse 97; Resp 17; Temp 98.9; Pulse Ox 95% on R/A; Weight 111.13 kg; ke1 Height 5 ft. 7 in. (170.18 cm); 09:13 BP 137 / 84; Pulse 110; Resp 15; Pulse Ox 98% ; jl7 04:30 Body Mass Index 38.37 (111.13 kg, 170.18 cm) ke1 ED Course: 03:49 Patient arrived in ED. ja2 03:56 Keagan Wallace MD is Attending Physician. kdr 04:03 Patient has correct armband on for positive identification. Bed in low position. Call mm9 light in reach. Side rails up X 1. Pulse ox on. NIBP on. 04:07 Reji Crum, RN is Primary Nurse. ke1 04:33 Triage completed. ke1 05:06 Inserted saline lock: 22 gauge in left antecubital area, using aseptic technique. ke1 05:07 CBC with Diff Sent. ke1 05:07 CMP Sent. ke1 05:07 Lipase Sent. ke1 06:50 CT Abd/Pelvis - IV Contrast Only In Process Unspecified. EDMS 08:16 Attending Physician role handed off by Keagan Wallace MD rn 08:16 Emory Briseno MD is Attending Physician. rn 09:13 No provider procedures requiring assistance completed. IV discontinued, intact, jl7 bleeding controlled, No redness/swelling at site. Pressure dressing applied. Administered Medications: 09:12 Drug: LoMOTIL (diphenoxylate-atropine) 2 tabs Route: PO; jl7 09:12 Follow up: Response: Medication administered at discharge. jl7 Medication: 09:13 VIS not applicable for this client. jl7 Outcome: 08:50 Discharge ordered by . rn 09:13 Discharged to home ambulatory. jl7 09:13 Condition: stable 09:13 Discharge instructions given to patient, Instructed on discharge instructions, follow up and referral plans. Demonstrated understanding of instructions, follow-up care. 09:14 Patient left the ED. jl7 Signatures: Dispatcher [employer] EDMS Keagan Wallace MD MD kdr Emory Briseno MD MD rn Leal, Jahala, RN RN jl7 Susan Vital2 Reji Crum, RN RN ke1 Laura Schmidt 9
--- NOTE | 2022-08-10 08:51 | EDPHYS ---
Physician Documentation [facility] Name: Nuvia Blandon Jr Age: 56 yrs Sex: Male : 1965 Arrival Date: 08/10/2022 Time: 03:49 Bed 12 Private MD: ED Physician Emory Briseno HPI: 08/10 06:56 This 56 yrs old Male presents to ER via Ambulatory with complaints of Nausea, kdr Diarrhea, Abdominal Pain, Headache. 06:56 The patient presents to the emergency department with nausea, that is mild, vomiting, kdr that is intermittent, diarrhea, that is intermittent, abdominal pain, of the abdomen diffusely, described as achy, crampy, dull, intermittent, vague,\E\ waxing and waning. Onset: The symptoms/episode began/occurred gradually, 1 week(s) ago. Possible causes: unknown. The symptoms are aggravated by food . Associated signs and symptoms: Pertinent positives: abdominal pain, diarrhea, nausea, vomiting. Severity of symptoms: At their worst the symptoms were moderate severe just prior to arrival, in the emergency department the symptoms are unchanged. The patient has not experienced similar symptoms in the past. The patient has not recently seen a physician. Historical: - Allergies: 04:33 Bactrim (Hives); ke1 04:33 Morphine; nauseous; ke1 04:33 PENICILLINS (Hives); ke1 - PMHx: 04:33 cancer-liver; Cirrhosis; Hepatitis; C; liver transplant; ke1 - Immunization history:: Client reports having NOT received the Covid vaccine. - Social history:: Smoking status: Patient denies any tobacco usage or history of. ROS: 06:56 Constitutional: Negative for fever, chills, and weight loss, Eyes: Negative for injury, kdr pain, redness, and discharge, ENT: Negative for injury, pain, and discharge, Neck: Negative for injury, pain, and swelling, Cardiovascular: Negative for chest pain, palpitations, and edema, Respiratory: Negative for shortness of breath, cough, wheezing, and pleuritic chest pain, Back: Negative for injury and pain, : Negative for injury, bleeding, discharge, and swelling, MS/Extremity: Negative for injury and deformity, Skin: Negative for injury, rash, and discoloration, Neuro: Negative for headache, weakness, numbness, tingling, and seizure activity. Psych: Negative for depression, anxiety, suicide ideation, homicidal ideation, and hallucinations, Allergy/Immunology: Negative for hives, rash, and allergies, Endocrine: Negative for neck swelling, polydipsia, polyuria, polyphagia, and marked weight changes, Hematologic/Lymphatic: Negative for swollen nodes, abnormal bleeding, and unusual bruising. 06:56 Abdomen/GI: Positive for abdominal pain, nausea, diarrhea, abdominal cramps, Negative for black/tarry stool, rectal pain, rectal bleeding. Exam: 06:56 Constitutional: This is a well developed, well nourished patient who is awake, alert, kdr and in no acute distress. Head/Face: Normocephalic, atraumatic. Eyes: Pupils equal round and reactive to light, extra-ocular motions intact. Lids and lashes normal. Conjunctiva and sclera are non-icteric and not injected. Cornea within normal limits. Periorbital areas with no swelling, redness, or edema. Neck: Trachea midline, no thyromegaly or masses palpated, and no cervical lymphadenopathy. Supple, full range of motion without nuchal rigidity, or vertebral point tenderness. No Meningismus. Chest/axilla: Normal chest wall appearance and motion. Nontender with no deformity. No lesions are appreciated. Cardiovascular: Regular rate and rhythm with a normal S1 and S2. No gallops, murmurs, or rubs. Normal PMI, no JVD. No pulse deficits. Respiratory: Lungs have equal breath sounds bilaterally, clear to auscultation and percussion. No rales, rhonchi or wheezes noted. No increased work of breathing, no retractions or nasal flaring. Back: No spinal tenderness. No costovertebral tenderness. Full range of motion. Skin: Warm, dry with normal turgor. Normal color with no rashes, no lesions, and no evidence of cellulitis. 06:56 Abdomen/GI: Inspection: distension, that is moderate, that is severe, obese Palpation: soft, mild abdominal tenderness, in the abdomen diffusely, mass, is not appreciated, rebound tenderness, is not appreciated. Vital Signs: 04:02 BP 131 / 89; Pulse 97; Resp 17; Temp 98.9(O); Pulse Ox 95% on R/A; Weight 111.13 kg; mm9 Height 5 ft. 7 in. (170.18 cm); Pain 9/10; 04:30 BP 131 / 89; Pulse 97; Resp 17; Temp 98.9; Pulse Ox 95% on R/A; Weight 111.13 kg; ke1 Height 5 ft. 7 in. (170.18 cm); 09:13 BP 137 / 84; Pulse 110; Resp 15; Pulse Ox 98% ; jl7 04:30 Body Mass Index 38.37 (111.13 kg, 170.18 cm) ke1 MDM: 06:56 Data reviewed: vital signs, nurses notes, lab test result(s), radiologic studies. kdr Counseling: I had a detailed discussion with the patient and/or guardian regarding: the historical points, exam findings, and any diagnostic results supporting the discharge/admit diagnosis, lab results, radiology results. 08:16 Patient medically screened. rn 08:49 Differential diagnosis: Nonspecific abd pain, gastritis, pancreatitis, diverticulitis, rn viral gastroenteritis, gastroenteritis. Response to treatment: the patient's symptoms have mildly improved after treatment, and as a result, I will discharge patient. Special discussion: I discussed with the patient/guardian in detail that at this point there is no indication for admission to the hospital. It is understood, however, that if the symptoms persist or worsen the patient needs to return immediately for re-evaluation. Based on the history and exam findings, there is no indication for further emergent testing or inpatient evaluation. I discussed with the patient/guardian the need to see the ticket worker for further evaluation of the symptoms. I discussed with the patient/guardian the need to see the primary care provider for further evaluation of the symptoms. ED course: Signed out to me by Dr. Wallace, plan was to dc home if CT neg, is negative for acute findings. Will dc home with pcp f/u and return precautions. No electrolyte disturbances or need for admission at this point.. 08/10 03:56 Order name: CBC with Diff; Complete Time: 05:44 kdr 08/10 03:56 Order name: CMP; Complete Time: 05:44 kdr 08/10 03:56 Order name: Lipase; Complete Time: 05:44 kdr 08/10 03:56 Order name: IV Saline Lock; Complete Time: 05: kdr 08/10 05:43 Order name: CT Abd/Pelvis - IV Contrast Only; Complete Time: 08:43 kdr 08/10 03:56 Order name: Labs collected and sent; Complete Time: 05:07 kdr Administered Medications: 09:12 Drug: LoMOTIL (diphenoxylate-atropine) 2 tabs Route: PO; jl7 09:12 Follow up: Response: Medication administered at discharge. 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
[2022-08-10] MEDS ORDERED: DIPHENOX/ATROP SULF 1 TAB PO ONE (09:00)
[2022-08-10 09:27] VITALS: TEMP 98.9
[2022-08-10 10:33] VITALS: BP 137/84; O2SAT 98
== END 2022-08-10 09:14 | disposition home or self-care (01) ==
LOC: ER 03:43
DX: E86.0 Dehydration (principal); Z94.4 Liver transplant status; Z88.0 Allergy status to penicillin; Z88.1 Allergy status to other antibiotic agents; Z88.5 Allergy status to narcotic agent
CPT/HCPCS: 85025; 36415; 83690; 80053; 74177; 99284; Q9967

== ENCOUNTER 2022-11-24 07:13 | Emergency (ER) | payer OTHER ==
--- OUTSIDE RECORDS SUMMARY | 2022-11-24 07:17 | XMS REPORT | Clinical Summary ---
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
--- OUTSIDE RECORDS SUMMARY | 2022-11-24 07:18 | XMS REPORT | Continuity of Care Document ---
:1965 Author Organization [facility] t Address [address] [place] [place] [address] Care Team Providers Name Role Phone Louis WILKS, Ash Primary Care Physician Hiram WILKS, Anabelle Kohler Attending Clinician [phone] Drew WILKS, Felisha Attending Clinician Amandeep RICHARDSON, Dorys Attending Clinician Unavailable AHNS RUGGIERO Attending Clinician Unavailable YUNIOR GUNN Attending Clinician Unavailable ASKED, NO Attending Clinician Unavailable Payers Payer Name Policy Type Policy Number Effective Date Expiration Date Yao blackburn MEDICARE PART A [id number] 2010 AND B 00:00:00 Problems Condition Condition [...] Chronic Chronic Disease Active Methodi hepatitis hepatitis 02-15 st C virus C virus 00:00: Hospita infection infection 00 l Diabetes Diabetes Disease Active Metho di mellitus mellitus 02-15 st 00:00: Hospita 00 l Diaphragma Diaphragma Disease Active M ethodi tic hernia tic hernia 02-15 st 00:00: Hospita 00 l 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 02-15 00:00: Hospita 00 l Esophageal Esophageal Disease Active M ethodi varices varices 02-15 st 00:00: Hospita 00 l Heartburn Heartburn Disease Active Met hodi 02-15 st 00:00: Hospita 00 l Indigestio Indigestio Disease Active M ethodi n n 02-15 00:00: Hospita 00 l 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 02-15 diabetes diabetes 00:00: Hospit a mellitus mellitus 00 l Vitamin D Vitamin D Disease Active Met hodi deficiency deficiency 02-15 00:00: Hospita 00 l Morbid Morbid Disease Active Methodi obesity obesity 10-29 st 00:00: Hospita 00 l Incisional Incisional Disease Active M ethodi hernia hernia 05-11 00:00: Hospita 00 l Abdominal Abdominal Disease Active Met hodi pain, pain, 03-27 st right right 00:00: Hospita upper upper 00 l quadrant quadrant 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 Medi bala oprim reaction 00 Itching. [facility] Propensi Active Hives. [facility] reaction 00 [facility] s Penicill Propensi [facility]. [facility] adverse 00:[facility]: Medical reaction 00 Center s Sulfamet Propensi Active Rash Method i hoxazole ty to 03-26 [facility] -[facility] adverse 00:00: Hospita oprim reaction 00 l s to drug Penicill Propensi Active Hives Method i ins ty to 03-26 adverse 00:00: Hospita reaction 00 l s to drug Family History Family Member Diagnosis Comments Start Date Stop Date Source Natural mother Diabetes [facility] Other Breast cancer [facility] Social History Social Habit Start Date Stop Date Quantity Comments Source History of Current smoker [facility] tobacco use Hospital Alcohol intake 2021-12-18 2021-12-18 Current [facility] 00:00:00 00:00:00 non-drinker of Hospital alcohol (finding) Tobacco use and 2016-05-11 2016-05-[address] [facility] [facility] exposure 00:00:00 00:00:00 [facility] Tobacco Comment 2016-05-11 2016-05-11 has quit[facility] [address] [facility] 00:[facility] 00:00:00 addi [facility] Urmila white. >1yr. Sex Assigned At [birth year] [facility] 00:00:00 00:00:00 Hospital Smoking Status Start Date Stop Date Source Ex-smoker 2016-03-31 00:00:00 2016-03-31 00:00:00 [facility] Medications Ordered Filled Start Stop Current Ordering Indication Dosage Frequency Signature Comments Components Source Medication Medication Date Date Medication? Clinician (SIG) Name Name insulin Yes 20U [id number] Inject Me thodi ASPART 12-13 [id number] 20-25 st (NovoLOG 00:00: 3D Units Hospita Flexpen 00 under the l U-100 skin 3 Insulin) (three) 100 unit/mL times a (3 mL) day with insulin pen meals. Patient on sliding. insulin Yes 40U Q.5D Inject Methodi detemir 3-12 40-50 st U-100 00:00: Units Hospita (LEVEMIR) 00 under the l 100 unit/mL skin 2 injection (two) times a day. metFORMIN Yes 1000mg Q.5D Take 1 [facility] (GLUCOPHAGE -[address] ) 1,000 mg 00:00: (1,000 mg Ho spita tablet 00 total) by l mouth 2 (two) times a day with meals. NOT SURE ON DOSE. pravastatin Yes 20mg QD Take 1 [facility] (PRAVACHOL) 3-12 tablet (20 st 20 MG 00:00: mg total) Hospita tablet 00 by mouth l daily. insulin Yes 20U Q.[id number] Inject Me thodi ASPART 12 [id number] 20-25 st (NovoLOG 00:00: 3D Units Hospita Flexpen 00 under the l U-100 skin 3 Insulin) (three) 100 unit/mL times a (3 mL) day with insulin pen meals. Patient on sliding. insulin Yes 40U Q.5D Inject Methodi detemir 12-13 40-50 st U-100 00:00: Units Hospita (LEVEMIR) [...] skin daily mL) pen with injector breakfast. liraglutide 2021- No 1.8mg QD Inject 0.3 [...] insulin l Dev) misc pen needle, Yes [id number] 1{devic Q.2D 1 Device 5 Methodi diabetic 31 2-23 e} (five) st gauge x 00:00: times a Hospita day. DX l needle E11.65 blood sugar Yes Check bs 4 Methodi diagnostic 2-[address] strips 00:00: day DX Hospita (Accu-Chek 00 E11.65On l Cathie Plus insilun test strp) strip test strips lancets Yes Check bs Method i (Accu-Chek 2-[address] FastClix 00:00: E11.65On Hospi ta [place] 00 insulin l Dev) misc pen needle, Yes [id number] 1{devic Q.2D 1 Device 5 Methodi diabetic 31 2-23 e} (five) st gauge x 00:00: times a Hospita day. DX l needle E11.65 calcium 2020-1 Yes 600mg QD Chew 600 Metho di carbonate-v 2-[address] itamin D3 00:00: OTC Hospita (Calcium 00 l 600 with Vitamin D3) 600 mg(1,500mg) -400 unit tablet,chew able calcium 2019-1 Yes 600mg QD Chew 600 Metho di carbonate-v 2-[address] itamin D3 00:00: OTC Hospita (Calcium 00 l 600 with Vitamin D3) 600 mg(1,500mg) -400 unit tablet,chew able mycophenola 2020-0 Yes [id number] 500mg Q.5D Take 1 Methodi te 6-[address] (CELLCEPT) 00:00: (500 mg [facility] 500 mg 00 total) by l tablet mouth 2 (two) times a day. mycophenola 2020-0 Yes [id number] 500mg Q.5D Take 1 Methodi te 6-04 [...] Hospita 22 l calcium 2018-10 Yes 1{tbl} Q.[id number] Chew 1 Methodi carbonate 0-[id number] (TUMS) 200 09:51: 3D [...] 90 needed for mcg/actuati wheezing. on inhaler ursodiol 2018-10 Yes 300mg Q.5D Take 300 [facility] (ACTIGALL) 0-[address] 300 mg 09:51: mouth 2 Hospita capsule 22 (two) l times a day. albuterol 2018-10 Yes 2{puff} Q6H Inhale 2 M ethodi (PROAIR 0-[address] HFA,PROVENT 09:51: every 6 Hos [place] 22 (six) l HFA,VENTOLI hours as N HFA) 90 needed for mcg/actuati wheezing. on inhaler SODIUM 2018-10 Yes Take by Methodi BICARBONATE [...] Hospita 22 l calcium 2018-10 Yes 1{tbl} Q.[id number] Chew 1 Methodi carbonate 0-[id number] (TUMS) 200 09:51: 3D (three) [facility] mg calcium 22 times a l (500 mg) day. chewable tablet tacrolimus Yes [id number] 2mg Q.5D Take 2 Methodi (PROGRAF) 1 7-[address] MG capsule 00:00: (2 mg Hospit a 00 total) by l mouth 2 (two) times a day. tacrolimus Yes [id number] 2mg Q.5D Take 2 Methodi (PROGRAF) 1 7-[address] MG capsule 00:00: (2 mg Hospit a 00 total) by l mouth 2 (two) times a day. blood-gluco Yes Check BS Me thodi se meter 5-[address] (ACCU-CHEK 00:00: insulin [facility] CATHIE PLUS 00 l METER) misc blood-gluco Yes Check BS Me thodi se meter 5-[address] (ACCU-CHEK 00:00: insulin [facility]osp [facility] CATHIE PLUS 00 l METER) misc mycophenola Yes 1000mg Q.5D Take 1,[address] te 8-11 mg by [facility] (CELLCEPT) 12:28: mouth 2 Medi bala 250 mg 15 (two) Center capsule times daily. pantoprazol Yes 40mg QD Take [address] e 8-11 by mouth [facility] (PROTONIX) 12:28: daily. Medic al 40 MG 15 Center tablet rOPINIRole Yes .25mg QD Take 0.[address] (REQUIP) 8-11 mg by [facility] 0.25 MG 12:28: mouth Medical tablet 15 nightly. Center sodium Yes 1{tbl} Q.5D Take [address] bicarbonate 8-11 tablet by Priti es 648 MG 12:28: mouth 2 Medical tablet 15 (two) Center times daily. ursodiol 2016-0 Yes 300mg Q.5D Take [address] (ACTIGALL) 8-11 mg by [facility] 300 mg 12:28: mouth 2 Medical capsule 15 (two) Center times daily. albuterol 2016-0 Yes 2{puff} Inhale [address] HFA 8-11 puffs by [facility] (VENTOLIN 12:28: mouth via Med ical HFA) 90 15 inhaler Center mcg/actuati every 6 on inhaler (six) hours as needed for Wheezing. calcium 2016-0 Yes 1{tbl} Q.[id number] Take [address] carbonate 8-11 [id number] tablet by [facility] (TUMS) 500 12:28: 3D mouth 3 Medi bala mg chewable 15 (three) Cente r tablet times daily. ergocalcife 2016-0 Yes [id number] Q7D Take [facility] rol 8-11 50,000 [facility] (ERGOCALCIF 12:28: Units by Me denise MCDOWELL) 15 mouth once Center 50,000 unit a week. capsule gabapentin 2016-0 Yes 300mg Q.[id number] Take [address] (NEURONTIN) 8-11 [id number] mg by Chioma smith 300 MG 12:28: 3D mouth 3 Medical capsule 15 (three) Center times daily. mycophenola 2016-0 Yes 1000mg Q.5D Take 1,[address] te 8-11 mg by [facility] (CELLCEPT) 12:28: mouth 2 Medi blaa 250 mg 15 (two) Center capsule times daily. pantoprazol 2016-0 Yes 40mg QD Take [address] e 8-11 by mouth [facility] (PROTONIX) 12:28: daily. Medic al 40 MG 15 Center tablet rOPINIRole 2016-0 Yes .25mg QD Take 0.[address] (REQUIP) 8-11 mg by [facility] 0.25 MG 12:28: mouth Medical tablet 15 nightly. Center sodium 2016-0 Yes 1{tbl} Q.5D Take [address] bicarbonate 8-11 tablet by Priti es 648 MG 12:28: mouth 2 Medical tablet 15 (two) Center times daily. ursodiol 2016-0 Yes 300mg Q.5D Take [address] (ACTIGALL) 8-11 mg by [facility] 300 mg 12:28: mouth 2 Medical capsule 15 (two) Center times daily. albuterol Yes 2{puff} Inhale [address] HFA 8-11 puffs by [facility] (VENTOLIN 12:28: mouth via Med ical HFA) 90 15 inhaler Center mcg/actuati every 6 on inhaler (six) hours as needed for Wheezing. calcium Yes 1{tbl} Q.[id number] Take [address] carbonate 8-11 [id number] tablet by [facility] (TUMS) 500 12:28: 3D mouth 3 Medi bala mg chewable 15 (three) Cente r tablet times daily. ergocalcife Yes [id number] Q7D Take [facility] rol 8-11 50,000 [facility] (ERGOCALCIF 12:28: Units by Ny dical JEREMIAS) 15 mouth once Center 50,000 unit a week. capsule gabapentin Yes 300mg Q.[id number] Take [address] (NEURONTIN) 8-11 [id number] mg by L ukes 300 MG 12:28: 3D mouth 3 Medical capsule 15 (three) Center times daily. Vital Signs Vital Name Observation Time Observation Value Comments Source Systolic blood 2021-12-22 13:18:00 134 mm[Hg] [facility] pressure Diastolic blood 2021-12-22 13:18:00 80 mm[Hg] [facility] pressure Heart rate 2021-12-22 13:18:00 92 /min [facility] Body temperature 2021-12-22 13:18:00 36.83 [facility] Respiratory rate 2021-12-22 13:18:00 18 /min [facility] Body height 2021-12-22 13:18:00 163.8 cm [facility] Body weight 2021-12-22 13:18:00 113.445 kg [facility] BMI 2021-12-22 13:18:00 42.27 kg/m2 [facility] Oxygen saturation in 2021-12-22 13:18:00 97 /min [facility] Arterial blood by Pulse oximetry Procedures Procedure Date / Time Performing Clinician Source Performed [id number] TACROLIMUS LEVEL, 2021-12-22 15:22:00 [facility]HENS[facility] METABOLIC 2021-12-22 15:22:00 [facility] PANEL PROTHROMBIN TIME WITH INR 2021-12-22 15:22:00 MonikHans martin Ma [facility] MAGNESIUM LEVEL 2021-12-22 15:22:00 Monik, [facility] HC COMPLETE BLD COUNT 2021-12-22 15:22:[address] [facility] W/AUTO DIFF ESTIMATED GFR 2021-12-22 15:22:00 [facility]BDOMEN W WO CONTRAST 2021-12-18 19:38:00 Hans Ruggiero Ma [facility] NM BONE SCAN WHOLE BODY 2021-12-18 17:51:00 Monik, [facility] CT PELVIS W CONTRAST 2021-12-18 16:30:00 [facility] 2021-12-18 16:30:00 [facility] CREATININE 2021-12-18 15:30:00 Monik, [facility] ESTIMATED GFR 2021-12-18 15:30:00 Monik, [facility] HC COMPLETE BLD COUNT 2021-12-18 14:53:[address] [facility] W/AUTO DIFF COMPREHENSIVE METABOLIC 2021-12-18 14:53:00 [facility] PANEL MAGNESIUM LEVEL 2021-12-18 14:53:00 [facility] HEMOGLOBIN A1C 2021-12-18 14:53:00 [facility] LIPID PANEL 2021-12-18 14:53:00 Monik, [facility] ALPHA FETOPROTEIN 2021-12-18 14:53:00 MonikHans martin [facility] CARCINOEMBRYONIC ANTIGEN 2021-12-18 14:53:00 [facility] (CEA[facility] PARTIAL THROMBOPLASTIN TIME 2021-12-18 14:53:00 [facility] (PTT) PROTHROMBIN TIME WITH INR 2021-12-18 14:53:00 MonikHans ramirez Ma [facility] VITAMIN D 1,25 DIHYDROXY 2021-12-18 14:53:00 [facility] LEVEL, SERUM CYTOMEGALOVIRUS BY PCR 2021-12-18 14:53:00 [facility] VITAMIN D 25 HYDROXY LEVEL 2021-12-18 14:53:00 MonikHans ramirez [facility] THYROID STIMULATING HORMONE 2021-12-18 14:53:00 [facility] GGT 2021-12-18 14:53:00 [facility] IKNOW VIRACOR 2021-12-18 14:53:00 [facility] [id number] TACROLIMUS LEVEL, 2021-12-18 14:53:00 [facility] RANDOM HEPATOCELLULAR CARCINOMA 2021-12-18 14:53:00 [facility] MARKER PANEL CANCER ANTIGEN 19-9 2021-12-18 14:53:00 [facility] HEPATITIS C VIRUS (HCV), 2021-12-18 14:53:00 [facility] QUANTITATIVE PCR ESTIMATED GFR 2021-12-18 14:53:00 [facility] DONOR SPECIFIC ANTIBODY 2021-12-18 14:53:00 [facility] BONE DENSITY 2021-12-18 14:16:42 [facility] BONE DENSITY PERIPHERAL 2021-12-18 14:16:09 [facility] XR CHEST 2 VW 2021-12-18 13:47:00 [facility] Plan of Care Planned Activity Planned Date Details Comments Source Future Scheduled 2022-10-18 HEPATITIS B VACCINES [facility] Test 07:57:28 (1 of 3 - 3-dose series) [code = HEPATITIS B VACCINES (1 of 3 - 3-dose series)] Future Scheduled 2022-10-18 COVID-19 VACCINE (#1) [facility] Hospital Test 07:57:28 [code = COVID-19 VACCINE (#1)] Future Scheduled 2022-10-18 Pneumococcal Vaccine: [facility] Hospital Test 07:57:28 Pediatrics (0 to 5 Years) and At-Risk Patients (6 to 64 Years) (1 - PCV) [code = Pneumococcal Vaccine: Pediatrics (0 to 5 Years) and At-Risk Patients (6 to 64 Years) (1 - PCV)] Future Scheduled 2022-10-18 [facility] Test 07:57:28 [code = DIABETIC FOOT EXAM] Future Scheduled 2022-10-18 SHINGLES VACCINES (1 Met [facility] Test 07:57:28 of 2) [code = SHINGLES VACCINES (1 of 2)] Future Scheduled 2022-10-18 COLONOSCOPY SCREENING [facility] Test 07:57:28 [code = COLONOSCOPY SCREENING] Future Scheduled 2022-10-18 DIABETES: RETINAL EYE [facility] Test 07:57:28 EXAM [code = DIABETES: RETINAL EYE EXAM] Future Scheduled 2022-10-18 INFLUENZA VACCINE Method [facility] Hospital Test 07:57:28 [code = INFLUENZA VACCINE] Future Scheduled 2022-08-05 HEPATITIS B VACCINES Met [facility] Test 20:38:36 (1 of 3 - 3-dose series) [code = HEPATITIS B VACCINES (1 of 3 - 3-dose series)] Future Scheduled 2022-08-05 COVID-19 VACCINE (#1) [facility] Hospital Test 20:38:36 [code = COVID-19 VACCINE (#1)] Future Scheduled 2022-08-05 Pneumococcal Vaccine: [facility] Test 20:38:36 Pediatrics (0 to 5 Years) and At-Risk Patients (6 to 64 Years) (1 - PCV) [code = Pneumococcal Vaccine: Pediatrics (0 to 5 Years) and At-Risk Patients (6 to 64 Years) (1 - PCV)] Future Scheduled 2022-08-05 DIABETIC FOOT EXAM [facility] Test 20:38:36 [code = DIABETIC FOOT EXAM] Future Scheduled 2022-08-05 SHINGLES VACCINES ([facility] Test 20:38:36 of 2) [code = SHINGLES VACCINES (1 of 2)] Future Scheduled 2022-08-[address] [facility] Hospital Test 20:38:36 [code = COLONOSCOPY SCREENING] Future Scheduled 2022-08-05 DIABETES: RETINAL EYE [facility] Hospital Test 20:38:36 EXAM [code = DIABETES: RETINAL EYE EXAM] Future Scheduled 2022-08-05 INFLUENZA VACCINE Method ist Hospital Test 20:38:36 [code = INFLUENZA VACCINE] Encounters Start End Encounter Admission Attending Care Care Encounter Source Date/Time Date/Time Type Type Clinicians Facility Department ID 2021-11-06 Outpatient MDA MDA [id number] 18:41:17 Brianne cavazos 2021-12-22 2022-01-05 Office Anabelle Gandhi 1.2.840.1 [id number] Methodi 09:45:00 13:42:20 Visit Felisha Russell 13293.1.[address] 3.430.2.7 Hospit a .3.839111 l .8 2021-12-22 2022-01-05 Office Anabelle Gandhi 1.2.840.1 [id number] Methodi 09:45:00 13:42:20 Visit Felisha Russell 94529.1.[address] 3.430.2.7 Hospit a .3.799430 l .8 2021-12-24 2021-12-24 Orders Amandeep, 1.2.840.1 [id number] Methodi 00:00:00 00:00:00 Only Dorys 99407.1.[address] 3.430.2.7 Hospit a .3.087060 l .8 2021-12-24 2021-12-24 Orders Bernstein, 1.2.840.1 [id number] Methodi 00:00:00 00:00:00 Only Dorys 68086.1.[address] 3.430.2.7 Hospit a .3.941226 l .8 2021-12-22 2021-12-22 [facility] [id number] [place] 00:00:00 00:00:[address]K [address] 2021-12-22 2021-12-22 Travel 1.2.840.1 1.2.036.565 [id number] Methodi 00:00:00 00:00:[address] 3.430.2.7 0.2.7.3.698 Ho spita .3.110589 084.8 l .8 2021-12-22 2021-12-22 Travel 1.2.840.1 1.2.044.697 [id number] [id number] Methodi 00:00:00 00:00:[address] 3.430.2.7 0.2.7.3.698 Ho spita .3.711747 084.8 l .8 2021-12-19 2021-12-19 Orders Bernstein, 1.2.840.1 [id number] Methodi 00:00:00 00:00:00 Only Dorys 15998.1.[address] 3.430.2.7 Hospit a .3.598860 l .8 2021-12-19 2021-12-19 Orders Bernstein, 1.2.840.1 [id number] Methodi 00:00:00 00:00:00 Only Dorys 97577.1.[address] 3.430.2.7 Hospit a .3.118736 l .8 2021-12-18 2021-12-18 [facility], 1.2.840.1 [id number] Methodi 13:45:00 23:59:00 Encounter Hans Robert 58344.1.[address] 3.430.2.7 Hospit a .3.816253 l .8 2021-12-18 2021-12-18 [facility], 1.2.840.1 [id number] Methodi 13:45:00 23:59:00 Encounter Bjornik Robert 26392.1.[address] 3.430.2.7 Hospit a .3.586357 l .8 2021-12-18 2021-12-18 [facility], 1.2.840.1 [id number] Methodi 13:07:01 13:44:00 Encounter Hans Robert 03149.1.[address] 3.430.2.7 Hospit a .3.421062 l .8 2021-12-18 2021-12-18 [facility], 1.2.840.1 [id number] Methodi 13:07:01 13:44:00 Encounter Hans Robert 07563.1.[address] 3.430.2.7 Hospit a .3.971409 l .8 2021-12-18 2021-12-18 [facility], 1.2.840.1 [id number] Methodi 10:01:52 13:06:00 Encounter Hans Robert 78874.1.[address] 3.430.2.7 Hospit a .3.255205 l .8 2021-12-18 2021-12-18 [facility], 1.2.840.1 [id number] Methodi 10:01:52 13:06:00 Encounter Bjornik Robert 59489.1.[address] 3.430.2.7 Hospit a .3.080531 l .8 2021-12-18 2021-12-18 [facility], 1.2.840.1 [id number] Methodi 10:00:40 10:00:40 Encounter Hans Robert 05774.1.[address] 3.430.2.7 Hospit a .3.604908 l .8 2021-12-18 2021-12-18 [facility], 1.2.840.1 [id number] Methodi 10:00:40 10:00:40 Encounter Hans Robert 80439.1.[address] 3.430.2.7 Hospit a .3.037472 l .8 2021-12-18 2021-12-18 [facility], 1.2.840.1 [id number] Methodi 09:20:33 09:59:00 Encounter Rafik Robert 40783.1.[address] 3.430.2.7 Hospit a .3.513710 l .8 2021-12-18 2021-12-18 [facility], 1.2.840.1 [id number] Methodi 09:20:33 09:59:00 Encounter Rafik Robert 59709.1.[address] 3.430.2.7 Hospit a .3.892625 l .8 2021-12-18 2021-12-18 [facility], 1.2.840.1 [id number] Methodi 08:27:41 09:19:00 Encounter Rafik Robert [address]377.1.[address] 3.430.2.7 Hospit a .3.554231 l .8 2021-12-18 2021-12-18 [facility], 1.2.840.1 [id number] Methodi 08:27:41 09:19:00 Encounter Rafik Robert 77468.1.[address] 3.430.2.7 Hospit a .3.711772 l .8 2021-12-18 2021-12-18 [facility], 1.2.840.1 [id number] Methodi 08:27:16 09:19:00 Encounter Rafik Robert [address]348.1.[address] 3.430.2.7 Hospit a .3.028476 l .8 2021-12-18 2021-12-18 [facility], 1.2.840.1 [id number] Methodi 08:27:16 09:19:00 Encounter Rafik Robert [address]502.1.[address] 3.430.2.7 Hospit a .3.806679 l .8 2021-12-18 2021-12-18 [facility], 1.2.840.1 [id number] Methodi 08:26:53 08:26:53 Encounter Rafik Robert 53785.1.[address] 3.430.2.7 Hospit a .3.291617 l .8 2021-12-18 2021-12-18 [facility], 1.2.840.1 [id number] Methodi 08:26:53 08:26:53 Encounter Hans Jones 46982.1.[address] 3.430.2.7 Hospit a .3.040904 l .8 2021-12-18 2021-12-18 [facility] [id number] [place] 00:00:00 00:00:00 HANS Villaseñor [facility] 2021-12-18 2021-12-18 Travel 1.2.840.1 1.2.548.996 [id number] Methodi 00:00:00 00:00:[address] 3.430.2.7 0.2.7.3.698 Ho spita .3.806714 084.8 l .8 2021-12-18 2021-12-18 Travel 1.2.840.1 1.2.592.213 [id number] Methodi 00:00:00 00:00:[address] 3.430.2.7 0.2.7.3.698 Ho spita .3.572004 084.8 l .8 2021-12-17 2021-12-17 Travel 1.2.840.1 1.2.564.543 [id number] Methodi 00:00:00 00:00:[address] 3.430.2.7 0.2.7.3.698 Ho spita .3.586761 084.8 l .8 2021-12-17 2021-12-17 Travel 1.2.840.1 1.2.647.096 [id number] Methodi 00:00:00 00:00:[address] 3.430.2.7 0.2.7.3.698 Ho spita .3.064335 084.8 l .8 2021-11-19 2021-11-19 [place] Bernstein, 1.2.840.1 [id number] Methodi 00:00:00 00:00:00 Only Dorys 92299.1.[address] 3.430.2.7 Hospit a .3.072036 l .8 2020-12-11 2020-12-11 Outpatient SADHU, [facility] [id number] [place] 00:00:00 00:00:00 YUNIOR [address] 2020-11-26 2020-11-26 Outpatient SADHU, [facility] [id number] 393 [place] 00:00:00 00:00:00 YUNIOR [address] 2020-11-26 2020-11-26 Outpatient SADHU, [facility] [id number] [place] 00:00:00 00:00:00 YUNIOR [address] 2020-09-03 2020-09-03 Outpatient GANDHI, [facility] [id number] [place] 00:00:00 00:00:00 ANABLELE [address] 2020-09-02 2020-09-02 Outpatient GANDHI, [facility] [id number] [place] 00:00:00 00:00:00 ANABELLE [address] 2020-09-02 2020-09-02 Outpatient GANDHI, [facility] [id number] [place] 00:00:00 00:00:00 ANABELLE [address] 2020-09-02 2020-09-02 Outpatient GANDHI, [facility] [id number] [place] 00:00:00 00:00:00 ANABELLE [address] 2020-09-02 2020-09-02 Outpatient GANDHI, [facility] [id number] [place] 00:00:00 00:00:00 ANABELLE [address] 2020-09-02 2020-09-02 Outpatient GANDHI, [facility] [id number] [place] 00:00:00 00:00:00 ANABELLE [address] 2020-09-02 2020-09-02 Outpatient GANDHI, [facility] [id number] [place] 00:00:00 00:00:00 ANABELLE [address] 2020-03-04 2020-03-04 Outpatient GANDHI, [facility] [id number] [place] 00:00:00 00:00:00 ANABELLE [address] 2019-07-04 2019-07-04 Outpatient ASKED, NO [facility] [id number] [place] 00:00:00 00:00:[address] 2019-07-04 2019-07-04 Outpatient GANDHI, [facility] [id number] [place] 00:00:00 00:00:00 ANABELLE [address] 2019-07-04 2019-07-04 Outpatient GANDHI, [facility] [id number] [place] 00:00:00 00:00:00 ANABELLE [address] 2019-07-04 2019-07-04 Outpatient GANDHI, [facility] [id number] [place] 00:00:00 00:00:00 ANABELLE [address] 2019-07-04 2019-07-04 Outpatient GANDHI, [facility] [id number] [place] 00:00:00 00:00:00 ANABELLE [address] Results This patient has no known results.
[2022-11-24 08:33] LABS: Absolute Lymphocytes (CBC) 0.9 K/uL (0.7-4.9); Hematocrit 43.6 % (39.6-49.0); Lymphocytes % 16.3 % (15.3-44.8); MCV 86.1 fL (80-100); MPV 8.5 fL (7.6-11.3); RBC Red Blood Cell Count 5.06 M/uL (4.33-5.43)
[2022-11-24 08:37] LABS: Protime INR 1.06
[2022-11-24] MEDS ORDERED: FENTANYL CITR 100 MCG/2 ML ONE (08:37)
[2022-11-24] MEDS ORDERED: ONDANSETRON 4 MG/2 ML VIAL ONE (08:37)
[2022-11-24] MEDS ORDERED: NA CHLORIDE 0.9% 1,000 ML ONE (08:37)
--- NOTE | 2022-11-24 08:39 | RAD REPORT ---
EXAM DESCRIPTION: CT - Head Brain Wo Cont - 11/24/2022 7:53 am CLINICAL HISTORY: DIZZINESS Headache, drowsiness COMPARISON: Head Brain Wo Cont dated 11/15/2020; HEAD BRAIN W O CONTRAST dated 09/06/2007 TECHNIQUE: All CT scans are performed using dose optimization technique as appropriate and may inclu de automated exposure control or mA/KV adjustment according to patient size. FINDINGS: No intracranial hemorrhage, hydrocephalus or extra-axial fluid collection.No areas of brai n edema or evidence of midline shift. The paranasal sinuses and mastoids are clear. The calvarium is intact. IMPRESSION: No acute intracranial abnormality.
[2022-11-24 08:51] LABS: Albumin 3.6 g/dL (3.4-5.0); Bilirubin Direct 0.2 mg/dL (0-0.2); Bilirubin Total 0.6 mg/dL (0.2-1.0); C-Reactive Protein 10.5 mg/L (<3.00); Magnesium 1.7 mg/dL (1.6-2.4); Potassium 3.9 mmol/L (3.5-5.1); Protein, Total 6.9 g/dL (6.4-8.2); Troponin High Sensitivity 4.3 pg/mL (<58.9)
--- NOTE | 2022-11-24 08:56 | RAD REPORT ---
EXAM DESCRIPTION: RAD - Chest Single View - 11/24/2022 8:06 am CLINICAL HISTORY: COUGH Chest pain. COMPARISON: Chest Single View dated 11/27/2021; Chest Single View dated 10/28/2021; Chest Single View dated 11/15/2020; Chest Pa And Lat (2 Views) dated 03/04/2018 FINDINGS: Portable technique limits examination quality. The lungs are grossly clear. The heart is normal in size. No displaced fractures. IMPRESSION: No acute intrathoracic process suspected.
--- NOTE | 2022-11-24 08:57 | RAD REPORT ---
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 Moderate osteoarthritis aff ects the left hip. No fracture, dislocation or AVN.
--- NOTE | 2022-11-24 08:58 | RAD REPORT ---
EXAM DESCRIPTION: RAD - Knee Right 2 View - 11/24/2022 8:06 am CLINICAL HISTORY: PAIN COMPARISON: Knee Left 2 View dated 11/24/2022 FINDINGS: No joint effusion. No evidence of fracture or dislocation seen.
--- NOTE | 2022-11-24 08:59 | RAD REPORT ---
EXAM DESCRIPTION: RAD - Knee Left 2 View - 11/24/2022 8:06 am CLINICAL HISTORY: PAIN COMPARISON: No comparisons FINDINGS: Moderate osteoarthritis involves the medial compartment. No fracture or joint effusion.
--- NOTE | 2022-11-24 09:40 | ER ---
Nurse's Notes [facility] Name: Nuvia Blandon Jr Age: 56 yrs Sex: Male : 1965 Arrival Date: 11/24/2022 Time: 07:15 Bed 5 Private MD: Diagnosis: Dizziness and giddiness;Osteoarthritis of knee, unspecified;Type 2 diabetes mellitus with hyperglycemia;Liver transplant status;Osteoarthritis of hip, unspecified Presentation: 11/24 07:16 Chief complaint: Patient states: "I've been dizzy and my vision is blurry since I got aa5 to work to the [employer]". Pt denies nausea/vomiting. Reports chronic R hip pain (states "I know I need a hip replacement). 07:16 Coronavirus screen: At this time, the client does not indicate any symptoms associated aa5 with coronavirus-19. Ebola Screen: Patient denies travel to an Ebola-affected area in the 21 days before illness onset. Initial Sepsis Screen: Does the patient meet any 2 criteria? HR > 90 bpm. Does the patient have a suspected source of infection? No. Patient's initial sepsis screen is negative. Risk Assessment: Do you want to hurt yourself or someone else? Patient reports no desire to harm self or others. 07:16 Acuity: CRIS 3 aa5 07:16 Method Of Arrival: Ambulatory aa 07:16 Onset of symptoms was November 24, 2022. aa5 Triage Assessment: 07:17 General: Appears uncomfortable, obese, Behavior is calm, cooperative, appropriate for sg5 age, restless. Pain: Complains of pain in right hip pain andbilateral knees Pain currently is 8 out of 10 on a pain scale. Neuro: Reports blurred vision dizziness, patient states forgot exit on way to work.. Musculoskeletal: Reports pain in right hip. Historical: - Allergies: 07:16 Bactrim (Hives); aa5 07:16 Morphine; nauseous; aa5 07:16 PENICILLINS (Hives); aa5 - Home Meds: 07:44 Insulin: Novolog Sub-Q 15 units twice a day for Diabetes [Active]; insulin levemir 30 sg5 units twice a day for Diabetes [Active]; Vitamin D Oral daily [Active]; 07:50 CellCept Oral [Active]; Magnesium Oxide Oral [Active]; pantoprazole Oral [Active]; sg5 metformin 500 mg Oral tab 1 tab 2 times per day [Active]; Sodium Bicarbonate Oral [Active]; tacrolimus Oral [Active]; Ursodiol Oral [Active]; - PMHx: 07:16 cancer-liver; Cirrhosis; Hepatitis; C; liver transplant; Diabetes mellitus; 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 - Social history:: Smoking status: Patient/guardian denies using tobacco. - Family history:: not pertinent. Screenin:30 [facility] ED Fall Risk Assessment (Adult) History of falling in the last 3 months, sg5 including since admission No falls in past 3 months (0 pts). Abuse screen: Denies threats or abuse. Nutritional screening: No deficits noted. Diabetic diet. Tuberculosis screening: No symptoms or risk factors identified. Assessment: 07:29 General: Appears uncomfortable, obese, Behavior is calm, cooperative, appropriate for sg5 age, restless. Pain: Complains of pain in right hip pain Pain currently is 8 out of 10 on a pain scale. Quality of pain is described as aching, Alleviated by medications, rest, repositioning, Aggravated by increased activity, weight bearing. Neuro: No deficits noted. Level of Consciousness is awake, alert, obeys commands, Oriented to person, place, time, situation, Appropriate for age Reports blurred vision dizziness. Cardiovascular: No deficits noted. Reports None Heart tones S1 S2 present Capillary refill < 3 seconds. Respiratory: No deficits noted. Airway is patent. GI: No deficits noted. No signs and/or symptoms were reported involving the gastrointestinal system. : No deficits noted. No signs and/or symptoms were reported regarding the genitourinary system. EENT: No deficits noted. No signs and/or symptoms were reported regarding the EENT system. Derm: No signs and/or symptoms reported regarding the dermatologic system. Musculoskeletal: Range of motion: right hip pain makes ROM difficult Reports pain in right hip and bilateral knees. 08:23 Reassessment: PT RETURNED FROM CT. bp 10:01 Reassessment: Patient appears in no apparent distress at this time. Patient and/or ph family updated on plan of care and expected duration. Pain level reassessed. Patient is alert, oriented x 3, equal unlabored respirations, skin warm/dry/pink. Vital Signs: 07:16 BP 141 / 99; Pulse 95; Resp 18 S; Temp 98.2(O); Pulse Ox 97% on R/A; Weight 108.86 kg aa5 (R); Height 5 ft. 7 in. (170.18 cm) (R); 07:30 BP 141 / 99; Pulse 90; Resp 18; Temp 98.2; Pulse Ox 97% ; Weight 109 kg; Height 5 ft. 7 sg5 in. (170.18 cm); Pain 8/10; 08:23 BP 154 / 99; Pulse 89; Resp 17; Pulse Ox 97% ; bp 09:20 BP 123 / 79; Pulse 78; Resp 16; Pulse Ox 98% on R/A; Pain 3/10; sg5 07:30 Body Mass Index 37.64 (109.00 kg, 170.18 cm) sg5 ED Course: 07:15 Patient arrived in ED. rg4 07:15 Aditya Perales MD is Attending Physician. dolores 07:16 Arm band placed on. aa5 07:29 Triage completed. aa5 07:30 Patient has correct armband on for positive identification. Placed in gown. Bed in low sg5 position. Call light in reach. Side rails up X 1. 07:38 Del Friend, RN is Primary Nurse. as6 07:58 Yenny Francisco, DYLAN is Primary Nurse. ph 08:30 Inserted saline lock: 20 gauge in right antecubital area, using aseptic technique. sg5 09:41 Estuardo Clement MD is Referral Physician. dolores 09:50 IV discontinued. sg5 09:51 No provider procedures requiring assistance completed. sg5 Administered Medications: 08:38 Drug: Zofran (Ondansetron) 4 mg Route: IVP; Site: right antecubital; ph 10:46 Follow up: Response: No adverse reaction ph 08:40 Drug: NS 0.9% 1000 ml Route: IV; Rate: 125 ml/hr; Site: right antecubital; ph 10:15 Follow up: Response: No adverse reaction; IV Status: Completed infusion ph 08:40 Drug: fentaNYL (PF) 25 mcg Route: IVP; Site: right antecubital; ph 09:00 Follow up: Response: No adverse reaction ph 09:48 Drug: Ketorolac 15 mg Route: IVP; Site: right antecubital; sg5 10:15 Follow up: Response: No adverse reaction ph 09:58 Drug: fentaNYL (PF) 25 mcg Route: IVP; Site: right antecubital; ph 10:15 Follow up: Response: No adverse reaction ph Medication: 07:30 VIS not applicable for this client. sg5 Outcome: 09:40 Discharge ordered by MD. bernal 09:58 Discharged to home ambulatory. sg5 09:58 Condition: good 09:58 Discharge instructions given to patient, Instructed on discharge instructions, follow up and referral plans. Demonstrated understanding of instructions, follow-up care, medications. 10:04 Patient left the ED. ph Signatures: Aditya Perales MD MD cha Calderon, Audri, RN RN aa5 Yenny Francisco RN RN Anyi Mina Brian, RN RN bp Slawson, Ashby, RN RN as6 Peri Hancock RN RN sg5
--- NOTE | 2022-11-24 09:41 | EDPHYS ---
Physician Documentation [facility] Name: Nuvia Blandon Jr Age: 56 yrs Sex: Male : 1965 Arrival Date: 11/24/2022 Time: 07:15 Bed 5 Private MD: ED Physician Aditya Perales HPI: 11/24 08:46 This 56 yrs old Male presents to ER via Ambulatory with complaints of dolores Dizziness, Blurred Vision, Knee Pain, Hip Pain. 08:46 The patient presents with dizziness, generalized weakness. Onset: The symptoms/episode dolores began/occurred this morning, today. Context: occurred at home. Modifying factors: The symptoms are alleviated by nothing, the symptoms are aggravated by nothing. Associated signs and symptoms: Pertinent positives: confusion. Severity of symptoms: At their worst the symptoms were mild in the emergency department the symptoms are unchanged. Patient's baseline: Neuro: alert and fully oriented. The patient has not experienced similar symptoms in the past. Historical: - Allergies: 07:16 Bactrim (Hives); aa5 07:16 Morphine; nauseous; aa5 07:16 PENICILLINS (Hives); aa5 - Home Meds: 07:44 Insulin: Novolog Sub-Q 15 units twice a day for Diabetes [Active]; insulin levemir 30 sg5 units twice a day for Diabetes [Active]; Vitamin D Oral daily [Active]; 07:50 CellCept Oral [Active]; Magnesium Oxide Oral [Active]; pantoprazole Oral [Active]; sg5 metformin 500 mg Oral tab 1 tab 2 times per day [Active]; Sodium Bicarbonate Oral [Active]; tacrolimus Oral [Active]; Ursodiol Oral [Active]; - PMHx: 07:16 cancer-liver; Cirrhosis; Hepatitis; C; liver transplant; Diabetes mellitus; 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 - Social history:: Smoking status: Patient/guardian denies using tobacco. - Family history:: not pertinent. ROS: 08:46 Constitutional: Negative for fever, chills, and weight loss, Eyes: Negative for injury, dolores pain, redness, and discharge, ENT: Negative for injury, pain, and discharge, Neck: Negative for injury, pain, and swelling, Cardiovascular: Negative for chest pain, palpitations, and edema, Respiratory: Negative for shortness of breath, cough, wheezing, and pleuritic chest pain, Abdomen/GI: Negative for abdominal pain, nausea, vomiting, diarrhea, and constipation, Back: Negative for injury and pain, : Negative for injury, bleeding, discharge, and swelling, MS/Extremity: Negative for injury and deformity, Skin: Negative for injury, rash, and discoloration, Psych: Negative for depression, anxiety, suicide ideation, homicidal ideation, and hallucinations, Allergy/Immunology: Negative for hives, rash, and allergies, Endocrine: Negative for neck swelling, polydipsia, polyuria, polyphagia, and marked weight changes, Hematologic/Lymphatic: Negative for swollen nodes, abnormal bleeding, and unusual bruising. 08:46 Neuro: Positive for altered mental status, dizziness, weakness. Exam: 08:46 Constitutional: This is a well developed, well nourished patient who is awake, alert, dolores and in no acute distress. Head/Face: Normocephalic, atraumatic. Eyes: Pupils equal round and reactive to light, extra-ocular motions intact. Lids and lashes normal. Conjunctiva and sclera are non-icteric and not injected. Cornea within normal limits. Periorbital areas with no swelling, redness, or edema. ENT: Nares patent. No nasal discharge, no septal abnormalities noted. Tympanic membranes are normal and external auditory canals are clear. Oropharynx with no redness, swelling, or masses, exudates, or evidence of obstruction, uvula midline. Mucous membranes moist. Neck: Trachea midline, no thyromegaly or masses palpated, and no cervical lymphadenopathy. Supple, full range of motion without nuchal rigidity, or vertebral point tenderness. No Meningismus. Chest/axilla: Normal chest wall appearance and motion. Nontender with no deformity. No lesions are appreciated. Cardiovascular: Regular rate and rhythm with a normal S1 and S2. No gallops, murmurs, or rubs. Normal PMI, no JVD. No pulse deficits. Respiratory: Lungs have equal breath sounds bilaterally, clear to auscultation and percussion. No rales, rhonchi or wheezes noted. No increased work of breathing, no retractions or nasal flaring. Abdomen/GI: Soft, non-tender, with normal bowel sounds. No distension or tympany. No guarding or rebound. No evidence of tenderness throughout. Back: No spinal tenderness. No costovertebral tenderness. Full range of motion. Male : Normal genitalia with no discharge or lesions. Skin: Warm, dry with normal turgor. Normal color with no rashes, no lesions, and no evidence of cellulitis. Neuro: Awake and alert, GCS 15, oriented to person, place, time, and situation. Cranial nerves II-XII grossly intact. Motor strength 5/5 in all extremities. Sensory grossly intact. Cerebellar exam normal. Normal gait. Psych: Awake, alert, with orientation to person, place and time. Behavior, mood, and affect are within normal limits. 08:46 Musculoskeletal/extremity: ROM: full passive range of motion, limited active range of motion, limited active range of motion due to pain, limited passive range of motion due to pain, Circulation is intact in all extremities. Sensation intact. Compartment Syndrome exam of affected extremity: is normal. Joints: the left knee, right hip and right knee displays pain at rest, painful range of motion, DVT Exam: No signs of deep vein thrombosis. no pain, no swelling, no tenderness, negative Homans' sign noted on exam, no appreciated bluish discoloration, no erythema, no increased warmth. 08:55 ECG was reviewed by the Attending Physician. [facility] Vital Signs: 07:16 BP 141 / 99; Pulse 95; Resp 18 S; Temp 98.2(O); Pulse Ox 97% on R/A; Weight 108.86 kg aa5 (R); Height 5 ft. 7 in. (170.18 cm) (R); 07:30 BP 141 / 99; Pulse 90; Resp 18; Temp 98.2; Pulse Ox 97% ; Weight 109 kg; Height 5 ft. 7 sg5 in. (170.18 cm); Pain 8/10; 08:23 BP 154 / 99; Pulse 89; Resp 17; Pulse Ox 97% ; bp 09:20 BP 123 / 79; Pulse 78; Resp 16; Pulse Ox 98% on R/A; Pain 3/10; sg5 07:30 Body Mass Index 37.64 (109.00 kg, 170.18 cm) sg5 MDM: 07:16 Patient medically screened. [facility] 08:50 Data reviewed: vital signs, nurses notes, lab test result(s), EKG, radiologic studies, [facility] CT scan, doppler, plain films. Consideration of Admission/Observation Escalation of care including admission/observation considered. I considered the following discharge prescriptions or medication management in the emergency department Medications were administered in the Emergency Department. See MAR. Test considered but Not performed: MRI: mri brain. Care significantly affected by the following chronic conditions: Diabetes, cirrhosis, liver transplant. 11/24 07:36 Order name: Glucose, Ancillary Testing; Complete Time: 08:46 EDMS 11/24 07:40 Order name: Basic Metabolic Panel [facility] 11/24 07:40 Order name: CBC with Diff 11/24 07:40 Order name: LFT's 11/24 07:40 Order name: Magnesium 11/24 07:40 Order name: NT PRO-BNP 11/24 07:40 Order name: PT-INR dolores 11/24 07:40 Order name: Troponin HS 11/24 07:40 Order name: AMMONIA 11/24 07:40 Order name: CRP 11/24 07:40 Order name: Urine Microscopic Only dolores 11/24 08:37 Order name: Protime (+INR); Complete Time: 08:46 EDMS 11/24 08:38 Order name: CBC with Automated Diff; Complete Time: 08:46 EDMS 11/24 08:51 Order name: Basic Metabolic Panel; Complete Time: 08:54 EDMS 11/24 07:40 Order name: XRAY Chest (1 view) 11/24 07:40 Order name: Pelvis XRAY 11/24 07:40 Order name: CT Head Brain wo Cont 11/24 07:40 Order name: Knee Right 2 View XRAY 11/24 07:40 Order name: Knee Left 2 View XRAY [facility] 11/24 08:40 Order name: CT; Complete Time: 08:46 EDMS 11/24 08:51 Order name: Liver (Hepatic) Function; Complete Time: 08:54 EDMS 11/24 08:51 Order name: Troponin High Sensitivity; Complete Time: 08:54 EDMS 11/24 08:51 Order name: NT PRO-BNP; Complete Time: 08:54 EDMS 11/24 08:51 Order name: C-Reactive Protein; Complete Time: 08:54 EDMS 11/24 08:51 Order name: Magnesium; Complete Time: 08:54 EDMS 11/24 08:51 Order name: US Carotid Artery Bilateral dolores 11/24 08:57 Order name: RAD; Complete Time: 09:16 EDMS 11/24 08:57 Order name: RAD; Complete Time: 09:16 EDMS 11/24 08:58 Order name: RAD; Complete Time: 09:16 EDMS 11/24 09:21 Order name: Ammonia; Complete Time: 09:39 EDMS 11/24 07:40 Order name: EKG; Complete Time: 07:[address] [facility] 11/24 07:40 Order name: Cardiac monitoring; Complete Time: 08:27 dolores 11/24 07:40 Order name: EKG - Nurse/Tech; Complete Time: 08:[address] [facility] 11/24 07:40 Order name: IV Saline Lock; Complete Time: 08:27 dolores 11/24 07:40 Order name: Labs collected and sent; Complete Time: 08:27 dolores 11/24 07:40 Order name: O2 Per Protocol; Complete Time: 07:[address] [facility] 11/24 07:40 Order name: O2 Sat Monitoring; Complete Time: 07:[address] [facility] 11/24 07:40 Order name: Diet Regular; Complete Time: 07:[address] [facility] 11/24 08:59 Order name: RAD; Complete Time: 09:16 EDMS 11/24 09:46 Order name: US EDMS EC:55 Rate is 84 beats/min. Rhythm is regular. QRS [place] is Normal. IN interval is normal. QRS dolores interval is normal. QT interval is normal. No Q waves. T waves are Normal. No ST changes noted. Clinical impression: NSR w/ Non-specific ST/T Changes and No evidence of ischemia. Interpreted by me. Reviewed by me. Administered Medications: 08:38 Drug: Zofran (Ondansetron) 4 mg Route: IVP; Site: right antecubital; ph 10:46 Follow up: Response: No adverse reaction ph 08:40 Drug: NS 0.9% 1000 ml Route: IV; Rate: 125 ml/hr; Site: right antecubital; ph 10:15 Follow up: Response: No adverse reaction; IV Status: Completed infusion ph 08:40 Drug: fentaNYL (PF) 25 mcg Route: IVP; Site: right antecubital; ph 09:00 Follow up: Response: No adverse reaction ph 09:48 Drug: Ketorolac 15 mg Route: IVP; Site: right antecubital; sg5 10:15 Follow up: Response: No adverse reaction ph 09:58 Drug: fentaNYL (PF) 25 mcg Route: IVP; Site: right antecubital; ph 10:15 Follow up: Response: No adverse reaction ph Disposition Summary: 11/24/22 09:40 Discharge Ordered Location: Home dolores Problem: new dolores Symptoms: have improved dolores Condition: Fair dolores Diagnosis - Dizziness and giddiness dolores - Osteoarthritis of knee, unspecified dolores - Type 2 diabetes mellitus with hyperglycemia dolores - Liver transplant status dolores - Osteoarthritis of hip, unspecified dolores Followup: dolores - With: Private Physician - When: 2 - 3 days - Reason: Recheck today's complaints, Continuance of care, Re-evaluation by your physician Followup: dolores - With: Estuardo Clement MD - When: 2 - 3 days - Reason: Recheck today's complaints, Re-evaluation by your physician Discharge Instructions: - Discharge Summary Sheet dolores - Arthritis dolores - Dizziness dolores - Hyperglycemia dolores - Diabetes Mellitus and Nutrition, Adult dolores - Aspirin and Your Heart dolores - Dizziness, [id number] [facility] Forms: - Medication Reconciliation Form dolores - Thank You Letter dolores - Antibiotic Education dolores - Prescription Opioid Use dolores - Work release form ph Prescriptions: - Celebrex 100 mg Oral Capsule - take 1 tablet by ORAL route once daily As needed take with food; 20 capsule; [facility] Refills: 0, Product Selection Permitted - Pepcid 20 mg Oral Tablet - take 1 tablet by ORAL route every 12 hours for 21 days; 42 tablet; Refills: 0, dolores Product Selection Permitted Signatures: Dispatcher [employer] Aditya Hinton MD MD cha Calderon, Audri, RN RN aa5 Yenny Francisco RN RN Peri Wan, RN RN sg5
--- NOTE | 2022-11-24 09:46 | RAD REPORT ---
EXAM DESCRIPTION: - CP - 11/24/2022 9:19 am CLINICAL HISTORY: DIZZINESS Headache, drowsiness COMPARISON: No comparisons TECHNIQUE: Real-time sonographic evaluation of both carotid systems was performed. Doppler interroga tion was performed with waveform tracing bilaterally. FINDINGS: Normal high resistance waveforms are noted in both external carotid arteries. The common c arotid arteries and internal carotid arteries show normal low resistance waveforms. Focal mild soft plaque is noted right carotid bulb. Peak systolic and end diastolic velocity values a nd the ICA/CCA ratios are in the non-hemodynamically significant range. Antegrade flow seen in both vertebral arteries. IMPRESSION: Mild soft plaque is seen right carotid bulb. No evidence of a hemodynamically significant stenosis.
[2022-11-24] MEDS ORDERED: KETOROLAC 30 MG/ML INJ ONE (09:49)
[2022-11-24 10:08] VITALS: TEMP 98.2
[2022-11-24 10:17] VITALS: BP 123/79; O2SAT 98
--- NOTE | 2022-11-24 16:17 | EKG ---
Test Date: 2022-11-24 Test Time: 08:26:00 Osha Inspector: VANDANA MEASUREMENT RESULTS: Intervals: Rate: 84 OK: 136 QRSD: 80 QT: 372 QTc: 439 [place]: P: 57 OK: 136 QRS: 87 T: 20 INTERPRETIVE STATEMENTS: Normal sinus rhythm Normal ECG Compared to ECG 10/28/2021 08:59:45 No significant changes Electronically Signed On 11-24-22 16:16:37 [employer] FEEDER by Chip Cullen
== END 2022-11-24 10:04 | disposition home or self-care (01) ==
LOC: ER 07:13
DX: R42 Dizziness and giddiness (principal); E11.65 Type 2 diabetes mellitus with hyperglycemia; Z94.4 Liver transplant status; M17.9 Osteoarthritis of knee, unspecified; M16.9 Osteoarthritis of hip, unspecified
CPT/HCPCS: 93005; 85025; 80048; 36415; 82140; 83735; 85610; 82947; 80076; 84484; 83880; 86140; 70450; 71045; 72170; 73560 ×2; 93880; J3010; J7030; J2405

== ENCOUNTER 2025-02-18 11:12 | Emergency (ER) | payer OTHER ==
--- OUTSIDE RECORDS SUMMARY | 2025-02-18 11:16 | XMS REPORT | Clinical Summary ---
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 Gender Identity Not on file Sexual Orientation Not on file Plan of Treatment Not on file Insurance MEDICARE PART A [place] [id number] MEDICARE PART A AND B Care Teams Call Centre Supervisor Relationship Specialty Start Date End Date Ash Myers MD [address] [place] [id number] [email or web address] PCP - General 12/04/15 Evonne Villalobos MD [address] [place] [id number] [email or web address] Physician 12/11/15 Cheryl Waggoner PA [address] [place] [id number] [email or web address] Physician Mental Health Coordinator 12/11/15 Vitaliy Leon MD [address] [place] [address] [place] [address] [email or web address] Physician 12/11/15
--- NOTE | 2025-02-18 11:43 | RAD REPORT ---
EXAMINATION: Ct Stroke Brain Wo Cont CLINICAL INDICATION: Male, 59 years old.STROKE ALERT TECHNIQUE: Axial CT images from the skull base to the vertex without intravenous contrast stroke prot ocol. Coronal and sagittal reformatted images were created from the data set. One or more of the following dose reduction techniques were used: Automated exposure control, adjustment of the mA and/o r kV according to patient size, and/or iterative reconstruction. Unless otherwise specified, incidental findings do not require dedicated imaging follow-up. [id number]. COMPARISON: 11/24/2022 FINDINGS: INTRACRANIAL: No acute intracranial hemorrhage. No hydrocephalus. No mass effect or midline shift. No significant white matter disease. VASCULATURE: No visualized abnormalities in the arteries or dural venous sinuses. SCALP/SKULL: No calvarial fracture identified. No acute soft tissue abnormality. SINUSES: Scattered areas of paranasal sinus thickening. No significant mastoid fluid. IMPRESSION: No acute intracranial abnormality. The findings were communicated to Dr. Miller on 02/18/2025 11:40 AM.
--- NOTE | 2025-02-18 11:52 | RAD REPORT ---
EXAMINATION: Neck Angio CLINICAL INDICATION: Male, 59 years old. stroke alert TECHNIQUE: Axial CT images were obtained from the aortic arch to the skull base after intravenous con trast utilizing angiographic protocol with 3D post-processing (maximum intensity projection images, volume rendered images and/or shaded surface rendered images). One or more of the following dose redu ction techniques were used: Automated exposure control, adjustment of the mA and/or kV according to patient size, and/or iterative reconstruction. Unless otherwise specified, incidental findings do not require dedicated imaging follow-up. [id number]. NASCET criteria used. Mild 0-49% stenosis Moderate 50-69% stenosis Severe 70-99% stenosis COMPARISON: No prior exam. FINDINGS: AORTA: Normal RIGHT: - CCA: Patent - ICA: Patent - ECA: Patent LEFT: - CCA: Patent - ICA: Patent - ECA: Patent VERTEBRAL: Patent SOFT TISSUE: No significant neck soft tissue abnormalities. The visualized lung apices are clear. 3D images confirm these findings. IMPRESSION: No arterial dissection or stenosis identified within the neck.
--- NOTE | 2025-02-18 11:54 | RAD REPORT ---
EXAMINATION: Head angio CLINICAL INDICATION: Male, 59 years old. STROKE ALERT TECHNIQUE: Axial CT images were obtained through the head after intravenous contrast utilizing angiog raphic protocol with 3D post-processing (maximum intensity projection images, volume rendered images and/or shaded surface rendered images). One or more of the following dose reduction technique s were used: Automated exposure control, adjustment of the mA and/or kV according to patient size, and/or iterative reconstruction. Unless otherwise specified, incidental findings do not require dedic ated imaging follow-up. COMPARISON: No prior exam. FINDINGS: RIGHT: ICA: Patent ARLENE: Patent MCA: Patent HORSE SHOW JUDGE: Patent. origin of the right ICA. The right HORSE SHOW JUDGE is asymmetrically small though patent. LEFT: ICA: Patent ARLENE: Patent MCA: Patent HORSE SHOW JUDGE: Patent Vertebrobasilar: The vertebral arteries are patent. The basilar artery is normal in appearance. 3D images confirm these findings. IMPRESSION: No occlusion, aneurysm, or hemodynamically significant stenosis identified.
[2025-02-18 12:02] LABS: Absolute Eosinophils 0.2 K/uL (0-0.5); Absolute Lymphocytes (CBC) 0.8 K/uL (0.7-4.9); Absolute Monocytes 0.3 K/uL (0.1-1.3); Absolute Neutrophil 3.6 K/uL (1.8-8.0); Basophils % 0.8 % (0-1.3); Eosinophils % 3.4 % (0-4.4); Hematocrit 43.9 % (39.6-49.0); Hemoglobin 15.1 g/dL (13.6-17.9); Lymphocytes % 15.7 % (15.3-44.8); MCH 29.6 pg (27.0-35.0); MCHC 34.5 g/dL (32.0-36.0); MCV 85.8 fL (80-100); MPV 9.5 fL (7.6-11.3); Monocytes % 6.8 % (3.3-12.3); Neutrophils % 73.3 % (41.7-73.7); Nucleated Red Blood Cells % 0.1 % (0-0); Platelets 202 thou/uL (152-406); RBC Red Blood Cell Count 5.11 M/uL (4.33-5.43); Red Cell Distribution Width 13.7 % (12.1-15.2)
[2025-02-18 12:11] LABS: PT Prothrombin Time 12.2 SECONDS (10-13.0); PTT, Activated Partial Thromb 31.7 SECONDS (27.2-37.4); Protime INR 1.07
--- NOTE | 2025-02-18 12:21 | RAD REPORT ---
EXAM: Chest Single View HISTORY: 59 years Male stroke alert COMPARISON: 11/24/2022 FINDINGS: LUNGS/PLEURA: The lungs are clear. No pleural effusions or pneumothorax. No pulmonary edema. CARDIAC/MEDIASTINUM: The cardiac silhouette is within normal limits. UPPER ABDOMEN: No significant abnormality. BONES: No acute abnormality. LINES/TUBES/OTHER: N/A IMPRESSION: No evidence of acute cardiopulmonary disease.
[2025-02-18 12:23] LABS: Albumin 2.9 g/dL (3.4-5.0); Albumin/Globulin Ratio 0.9 (1.1-1.8); Anion Gap 10.9 mEq/L (5.0-15.0); Bilirubin Direct 0.2 mg/dL (0-0.2); Bilirubin Indirect, Calculated 0.3 mg/dL (0.2-0.8); Bilirubin Total 0.5 mg/dL (0.2-1.0); Globulin 3.2 g/dL (2.3-3.5); Magnesium 1.3 mg/dL (1.6-2.4); Potassium 3.9 mEq/L (3.5-5.1); Protein, Total 6.1 g/dL (6.4-8.2); Troponin High Sensitivity 3.7 pg/mL (<58.9)
[2025-02-18] MEDS ORDERED: ONDANSETRON 4 MG/2 ML VIAL ONE (12:23)
[2025-02-18] MEDS ORDERED: HYDROMORPHONE HCL 1 MG/ML INJ ONE (12:23)
--- NOTE | 2025-02-18 12:42 | EDPHYS ---
Physician Documentation [facility] Name: Nuvia Blandon Jr Age: 59 yrs Sex: Male : 1965 Arrival Date: 02/18/2025 Time: 11:12 Bed 3 Private MD: ED Physician Anita Miller HPI: 02/18 11:32 This 59 yrs old Male presents to ER via Ambulatory with complaints of Facial sp3 Droop. 11:32 59-year-old male with a history of liver cancer, cirrhosis, diabetes, hepatitis, liver sp3 transplant, presents with right sided facial droop since 10 AM. Patient first noticed when he tried to eat and he was not able to get a good seal. He denies any speech abnormality or any weakness anywhere else. He also denies headache, trauma, prior stroke, recent surgery or any other signs of her symptoms or history on ROS at this time.. 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 - Infectious Disease History:: Denies. - Social history:: Smoking status: Patient denies any tobacco usage or history of. ROS: 11:33 Constitutional: Negative for fever, chills, and weight loss, Eyes: Negative for injury, sp3 pain, redness, and discharge, ENT: Negative for injury, pain, and discharge, Neck: Negative for injury, pain, and swelling, Cardiovascular: Negative for chest pain, palpitations, and edema, Respiratory: Negative for shortness of breath, cough, wheezing, and pleuritic chest pain, Abdomen/GI: Negative for abdominal pain, nausea, vomiting, diarrhea, and constipation, MS/Extremity: Negative for injury and deformity, Skin: Negative for injury, rash, and discoloration, Psych: Negative for depression, anxiety, suicide ideation, homicidal ideation, and hallucinations, Allergy/Immunology: Negative for hives, rash, and allergies, 11:33 All other systems are negative, Exam: 11:33 Constitutional: This is a well developed, well nourished patient who is awake, alert, sp3 and in no acute distress. Head/Face: Normocephalic, atraumatic. Eyes: Pupils equal round and reactive to light, extra-ocular motions intact. Lids and lashes normal. Conjunctiva and sclera are non-icteric and not injected. Cornea within normal limits. Periorbital areas with no swelling, redness, or edema. ENT: Nares patent. No nasal discharge, no septal abnormalities noted. External auditory canals are clear. Oropharynx with no redness, swelling, or masses, exudates, or evidence of obstruction, uvula midline. Mucous membranes moist. Neck: Trachea midline, no thyromegaly or masses palpated, and no cervical lymphadenopathy. Supple, full range of motion without nuchal rigidity, or vertebral point tenderness. No Meningismus. Chest/axilla: Normal chest wall appearance and motion. Nontender with no deformity. No lesions are appreciated. Cardiovascular: Regular rate and rhythm with a normal S1 and S2. No gallops, murmurs, or rubs. Normal PMI, no JVD. No pulse deficits. Respiratory: Lungs have equal breath sounds bilaterally, clear to auscultation and percussion. No rales, rhonchi or wheezes noted. No increased work of breathing, no retractions or nasal flaring. Abdomen/GI: Soft, non-tender, with normal bowel sounds. No distension or tympany. No guarding or rebound. No evidence of tenderness throughout. Back: No spinal tenderness. No costovertebral tenderness. Full range of motion. Skin: Warm, dry with normal turgor. Normal color with no rashes, no lesions, and no evidence of cellulitis. MS/ Extremity: Pulses equal, no cyanosis. Neurovascular intact. Full, normal range of motion. Psych: Awake, alert, with orientation to person, place and time. Behavior, mood, and affect are within normal limits. 11:33 Neuro: left-sided facial droop with forehead sparing noted. No speech dysarthria or other weakness. See nursing note for NIH stroke scale., 12:38 ECG was reviewed by the Attending Physician. EKG demonstrates normal sinus rhythm at 85 sp3 bpm with normal levels, no QRS, normal axis, normal axis ST segments without evidence of acute ischemia. Vital Signs: 11:25 BP 158 / 98; Pulse 94; Resp 18; Temp 97.8; Pulse Ox 95% ; Weight 106.59 kg; Height 5 ll1 ft. 6 in. ; Pain 7/10; 11:58 BP 142 / 97; Pulse 85; Resp 15; Pulse Ox 95% on R/A; hb 11:25 Body Mass Index 37.93 (106.59 kg, 167.64 cm) ll1 11:25 Pain Scale: Adult ll1 NIH Stroke Scale Scores: 12:00 NIHSS Score: 1 hb 12:01 NIHSS Score: 1 hb MDM: 11:26 Medical Screening Exam initiated sp3 11:34 Data reviewed: vital signs, nurses notes, old medical records, lab test result(s), EKG, sp3 radiologic studies. ED course: 59-year-old male with complex medical history now with right-sided facial droop since 10 AM. Differential diagnosis includes TIA/CVA spectrum, Avalos's palsy, other peripheral nerve abnormality, among others. Workup will include stroke alert with CT scan of the head, CT angiograms of the brain and neck, general labs, chest x-ray, EKG and general supportive care. Disposition pending workup and patient course.. 12:40 ED course: Upon further examination, right side of the forehead is able to be moved. sp3 Size deficits are left side of the face only including forehead. Eye cannot be closed and patient drooling out of the left side of his face. I had extensive conversation with Dr. Nassar regarding all scans, labs and current clinical exam. We agreed that this is most likely a Avalos's palsy. Will treat accordingly and he will be seen in the office.. 02/18 11:27 Order name: Basic Metabolic Panel; Complete Time: 12:23 sp3 02/18 11:27 Order name: CBC with Diff; Complete Time: 12:23 sp3 02/18 11:27 Order name: Hepatic Function; Complete Time: 12:23 sp3 02/18 11:27 Order name: High Sensitivity Troponin; Complete Time: 12:23 sp3 02/18 11:27 Order name: Magnesium; Complete Time: 12:23 sp3 02/18 11:27 Order name: Protime (+inr); Complete Time: 12:23 sp3 02/18 11:27 Order name: Ptt, Activated; Complete Time: 12:23 sp3 02/18 11:27 Order name: CT Head Angio; Complete Time: 11:55 sp3 02/18 11:27 Order name: CT Neck Angio; Complete Time: 11:55 sp3 02/18 11:27 Order name: CT Stroke Brain w/o Contrast; Complete Time: 11:47 sp3 02/18 11:27 Order name: Stroke CXR 1 View; Complete Time: 12:23 sp3 02/18 11:27 Order name: Accucheck; Complete Time: 12:00 sp3 02/18 11:27 Order name: Cardiac monitoring; Complete Time: 12:00 sp3 02/18 11:27 Order name: EKG - Nurse/Tech; Complete Time: 12:13 sp3 02/18 11:27 Order name: IV Saline Lock; Complete Time: 12:00 sp3 02/18 11:27 Order name: Labs collected and sent; Complete Time: 12:00 sp3 02/18 11:27 Order name: NPO; Complete Time: 12:00 sp3 02/18 11:27 Order name: O2 Per Protocol; Complete Time: 12:00 sp3 02/18 11:27 Order name: O2 Sat Monitoring; Complete Time: 12:00 sp3 02/18 11:27 Order name: Stroke Swallow Screen; Complete Time: 12:00 sp3 Administered Medications: 12:29 Drug: HYDROmorphone IVP 1 mg IVP once Route: IVP; Site: left upper arm; hb 12:51 Follow up: Response: No adverse reaction hb 12:29 Drug: Ondansetron IVP 4 mg IVP once; over 2 minutes Route: IVP; Site: left upper arm; hb 12:51 Follow up: Response: No adverse reaction hb Disposition Summary: 02/18/25 12:41 Discharge Ordered Notes: Location: Home sp3 Condition: Stable sp3 Diagnosis - Avalos's palsy sp3 Followup: sp3 - With: Manuel Nassar MD - When: Upon discharge from the Emergency Department - Reason: Continuance of care Discharge Instructions: - Discharge Summary Sheet sp3 - Avalos's Palsy, Adult sp3 Forms: - Work release form hb - Medication Reconciliation Form sp3 - Antibiotic Education sp3 - Prescription Opioid Use sp3 - Patient Portal Instructions sp3 - Leadership Thank You Letter sp3 Prescriptions: - Refresh Lacri-Lube 56.8-42.5 % Ophthalmic ointment - instill 1 application OPHTHALMIC route 4 to 8 times per day as needed for dry sp3 eyes; 50 application; Refills: 0, Product Selection Permitted - valacyclovir 1 gram Oral tablet - take 1 tablet ORAL route every 12 hours; 20 tablet; Refills: 0, Product sp3 Selection Permitted - Prednisone 20 mg Oral Tablet - take 2 tablets ORAL route once daily for 5 days; 10 tablet; Refills: 0, Product sp3 Selection Permitted NIH Stroke Scale - NIH Stroke Score Date: 02/18/2025 Time: 12:00 Total Score = 1 10. Dysarthria (speech clarity - read or repeat words) - 0(Normal) 11. Extinction and Inattention (visual/tactile/auditory/spatial/personal) - 0(No abnormality) 1a. Level of Consciousness (LOC) - 0(Alert) 1b. Level of Consciousness (LOC) (Month \T\ Age) - 0(Both) 1c. LOC Commands (Open \T\ Closes Eyes/Special Education Coordinator) - 0(Both) 2. Best Gaze (Lateral Gaze Paresis) - 0(Normal) 3. Visual Field Loss - 0(No visual loss) 4. Facial Palsy - 1(Minor Paralysis) 5a. Left Arm: Motor (10-second hold) - 0(No drift) 5b. Right Arm: Motor (10-second hold) - 0(No drift) 6a. Left Leg: Motor (5-second hold - always test supine) - 0(No drift) 6b. Right Leg: Motor (5-second hold - always test supine) - 0(No drift) 7. Limb Ataxia (finger/nose \T\ heel/martinez - test with eyes open) - 0(Absent) 8. Sensory Loss (pinprick arms/legs/face) - 0(Normal) 9. Best Language: Aphasia (description/naming/reading) - 0(No aphasia) Initials: NIH Stroke Scale - NIH Stroke Score Date: 02/18/2025 Time: 12:01 Total Score = 1 10. Dysarthria (speech clarity - read or repeat words) - 0(Normal) 11. Extinction and Inattention (visual/tactile/auditory/spatial/personal) - 0(No abnormality) 1a. Level of Consciousness (LOC) - 0(Alert) 1b. Level of Consciousness (LOC) (Month \T\ Age) - 0(Both) 1c. LOC Commands (Open \T\ Closes Eyes/Special Education Coordinator) - 0(Both) 2. Best Gaze (Lateral Gaze Paresis) - 0(Normal) 3. Visual Field Loss - 0(No visual loss) 4. Facial Palsy - 1(Minor Paralysis) 5a. Left Arm: Motor (10-second hold) - 0(No drift) 5b. Right Arm: Motor (10-second hold) - 0(No drift) 6a. Left Leg: Motor (5-second hold - always test supine) - 0(No drift) 6b. Right Leg: Motor (5-second hold - always test supine) - 0(No drift) 7. Limb Ataxia (finger/nose \T\ heel/martinez - test with eyes open) - 0(Absent) 8. Sensory Loss (pinprick arms/legs/face) - 0(Normal) 9. Best Language: Aphasia (description/naming/reading) - 0(No aphasia) Initials: Signatures: Dispatcher [employer] EDMS Lexi Renteria RN RN Ros Bee RN RN ll1 Anita Miller MD MD sp3 Corrections: (The following items were deleted from the chart) 11:28 11:28 BASIC METABOLIC PANEL+C.LAB.BRZ ordered. EDMS EDMS 11:28 11:28 CBC+H.LAB.BRZ ordered. EDMS EDMS 11:28 11:28 HEPATIC FUNCTION+C.LAB.BRZ ordered. EDMS EDMS 11:28 11:28 Troponin High Sensitivity+C.LAB.BRZ ordered. EDMS EDMS 11:28 11:28 MAGNESIUM+C.LAB.BRZ ordered. EDMS EDMS 11:28 11:28 PROTIME (+INR)+COAG.LAB.BRZ ordered. EDCO EDMS 11:28 PTT, ACTIVATED+COAG.LAB.BRZ ordered. EDCO EDMS 11:28 Head Angio+CT.RAD.BRZ ordered. EDCO EDMS 11:28 Neck Angio+CT.RAD.BRZ ordered. EDCO EDMS 11:28 CT-STROKE BRAIN W/O CONTRAST+CT.RAD.BRZ ordered. EDCO EDMS 11:28 Chest Single View+RAD.RAD.BRZ ordered. EDCO EDMS 12:30 Home Meds: Sodium Bicarbonate Oral; hb hb 12:37 11:33 Neuro: Right-sided facial droop with forehead sparing noted. No speech sp3 dysarthria or other weakness. See nursing note for NIH stroke scale., sp3
--- NOTE | 2025-02-18 12:42 | ER ---
Nurse's Notes [facility] Name: Nuvia Blandon Jr Age: 59 yrs Sex: Male : 1965 Arrival Date: 02/18/2025 Time: 11:12 Bed 3 Private MD: Diagnosis: Avalos's palsy Presentation: 02/18 11:24 Coronavirus screen: Client denies travel out of the [place] in the last 14 days. At this ll1 time, the client does not indicate any symptoms associated with coronavirus-19. Ebola Screen: Patient denies travel to an Ebola-affected area in the 21 days before illness onset. Initial Sepsis Screen: Does the patient meet any 2 criteria? No. Patient's initial sepsis screen is negative. Does the patient have a suspected source of infection? No. Patient's initial sepsis screen is negative. Risk Assessment: Do you want to hurt yourself or someone else? Patient reports no desire to harm self or others. Onset of symptoms was February 18, 2025. 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 States his walking is "a little off" also. Stroke Activation: Symptom onset < 3 hours Physician: ED Attending; Name: ; Notified At: ; Arrived At: Physician: Mid-Level Provider; Name: ; Notified At: ; Arrived At: Physician: [not used]; Name: ; Notified At: ; Arrived At: Physician: [not used]; Name: ; Notified At: ; Arrived At: Physician: [not used]; Name: ; Notified At: ; Arrived At: Historical: - Allergies: 11:17 Bactrim (Hives); ll1 11:17 Morphine; nauseous; ll1 11:17 PENICILLINS (Hives); ll1 - Home Meds: 12:30 CellCept Oral [Active]; insulin levemir 30 units twice a day for Diabetes [Active]; hb Insulin: Novolog Sub-Q 15 units twice a day for Diabetes [Active]; metformin 500 mg Oral tab 1 tab 2 times per day [Active]; pantoprazole Oral [Active]; Sodium Bicarbonate Oral [Active]; Magnesium Oxide Oral [Active]; Ursodiol Oral [Active]; tacrolimus Oral [Active]; Vitamin D Oral daily [Active]; - PMHx: 11:17 cancer-liver; Cirrhosis; diabetes mellitus; Hepatitis; C; 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 - Infectious Disease History:: Denies. - Social history:: Smoking status: Patient denies any tobacco usage or history of. Screenin:59 [facility] ED Fall Risk Assessment (Adult) History of falling in the last 3 months, hb including since admission No falls in past 3 months (0 pts) Confusion or Disorientation No (0 pts) Intoxicated or Sedated No (0 pts) Impaired Gait No (0 pts) Mobility Assist Device Used No (0 pt) Altered Elimination No (0 pt) Score/Fall Risk Level 0 - 2 = Low Risk Oriented to surroundings, Maintained a safe environment, Educated pt \\T\\ family on fall prevention, incl call for assistance when getting out of bed. Abuse screen: Denies threats or abuse. Denies injuries from another. Nutritional screening: No deficits noted. Tuberculosis screening: No symptoms or risk factors identified. Assessment: 11:24 Reassessment: CODE STROKE CALLED, PT TO CT WITH HERBERT RICHARDSON. hb 12:01 VAN Scoring: Arm Drift: Patients demonstrates NO arm weakness. Patient is VAN Negative. hb Chromo Swallow Protocol Exclusion Criteria: Exclusion Criteria Result: Proceed Brief Cognitive Screen What is your name? Normal, Where are you right now? Normal, What year is it? Normal. Oral Mechanism Examination Oral Mechanism Result: Normal. 3 oz Water Swallow Challenge: Pt able to drink all water without stopping, coughing, choking or throat clearing: Yes Result: PASS Notified: Anita Miller MD. TNKase (Tenecteplase) Screening: Indications: Treatment will start within 4.5 hours onset of symptoms: Yes. Contraindications: Other: COMPLEX MEDICAL HISTORY, LIVER TRANSPLANT, AWAITING LAB RESULTS AND NEURO CONSULT, DECISION TO TNK DEFERRED AT THIS TME. General: Appears in no apparent distress. Behavior is calm, cooperative. Pain: Pain currently is 10 out of 10 on a pain scale. Neuro: Level of Consciousness is awake, alert, obeys commands, Oriented to person, place, time, situation, Reports headache. Cardiovascular: Patient's skin is warm and dry. Rhythm is regular. Respiratory: Respiratory effort is even, unlabored, Respiratory pattern is regular, symmetrical. GI: No signs and/or symptoms were reported involving the gastrointestinal system. : No signs and/or symptoms were reported regarding the genitourinary system. EENT: No signs and/or symptoms were reported regarding the EENT system. Derm: Skin is pink, warm \\T\\ dry. Musculoskeletal: No signs and/or symptoms reported regarding the musculoskeletal system. 12:50 Reassessment: Patient appears in no apparent distress at this time. Patient and/or hb family updated on plan of care and expected duration. Pain level reassessed. Patient is alert, oriented x 3, equal unlabored respirations, skin warm/dry/pink. Vital Signs: 11:25 BP 158 / 98; Pulse 94; Resp 18; Temp 97.8; Pulse Ox 95% ; Weight 106.59 kg; Height 5 ll1 ft. 6 in. ; Pain 7/10; 11:58 BP 142 / 97; Pulse 85; Resp 15; Pulse Ox 95% on R/A; hb 11:25 Body Mass Index 37.93 (106.59 kg, 167.64 cm) ll1 11:25 Pain Scale: Adult ll1 NIH Stroke Scale Scores: 12:00 NIHSS Score: 1 hb 12:01 NIHSS Score: 1 hb ED Course: 11:16 Patient arrived in ED. al6 11:17 Arm band placed on Patient placed in an exam room, on a stretcher. ll1 11:23 Anita Miller MD is Attending Physician. sp3 11:25 Triage completed. ll1 11:34 CT Stroke Brain w/o Contrast In Process Unspecified. EDMS 11:43 Lexi Renteria, RN is Primary Nurse. hb 11:45 Inserted saline lock: 22 gauge in left upper arm, using aseptic technique. Blood ll1 collected. Flushed with 10 mL NS. 11:49 CT Head Angio In Process Unspecified. EDMS 11:49 CT Neck Angio In Process Unspecified. EDMS 11:58 Initial lab(s) drawn, by me, sent to lab. hb 11:59 Patient has correct armband on for positive identification. Bed in low position. Call light in reach. Provided Education on: TESTS, RESULT TIMES. Client placed on continuous cardiac and pulse oximetry monitoring. NIBP monitoring applied. case monitor on. Pulse ox on. NIBP on. 12:00 Basic Metabolic Panel Sent. hb 12:00 CBC with Diff Sent. hb 12:00 Hepatic Function Sent. hb 12:00 High Sensitivity Troponin Sent. hb 12:00 Magnesium Sent. hb 12:00 Protime (+inr) Sent. hb 12:00 Ptt, Activated Sent. hb 12:13 Stroke CXR 1 View In Process Unspecified. EDMS 12:41 Manuel Nassar MD is Referral Physician. sp3 13:14 No provider procedures requiring assistance completed. IV discontinued, intact, hb bleeding controlled, No redness/swelling at site. Pressure dressing applied. Administered Medications: 12:29 Drug: HYDROmorphone IVP 1 mg IVP once Route: IVP; Site: left upper arm; hb 12:51 Follow up: Response: No adverse reaction hb 12:29 Drug: Ondansetron IVP 4 mg IVP once; over 2 minutes Route: IVP; Site: left upper arm; hb 12:51 Follow up: Response: No adverse reaction hb Medication: 12:03 VIS not applicable for this client. hb Outcome: 12:41 Discharge ordered by . sp3 13:14 Discharged to home with family, ASSISTED TO FRONT PASSENGER SIDE OF VEHICLE VIA WHEELCHAIR 13:14 Condition: stable 13:14 Discharge instructions given to patient, family, Instructed on discharge instructions, follow up and referral plans. medication usage, Demonstrated understanding of instructions, follow-up care, medications, Prescriptions given X 3, 13:15 Patient left the ED. NIH Stroke Scale - NIH Stroke Score Date: 02/18/2025 Time: 12:00 Total Score = 1 10. Dysarthria (speech clarity - read or repeat words) - 0(Normal) 11. Extinction and Inattention (visual/tactile/auditory/spatial/personal) - 0(No abnormality) 1a. Level of Consciousness (LOC) - 0(Alert) 1b. Level of Consciousness (LOC) (Month \\T\\ Age) - 0(Both) 1c. LOC Commands (Open \\T\\ Closes Eyes/Software Support Specialist) - 0(Both) 2. Best Gaze (Lateral Gaze Paresis) - 0(Normal) 3. Visual Field Loss - 0(No visual loss) 4. Facial Palsy - 1(Minor Paralysis) 5a. Left Arm: Motor (10-second hold) - 0(No drift) 5b. Right Arm: Motor (10-second hold) - 0(No drift) 6a. Left Leg: Motor (5-second hold - always test supine) - 0(No drift) 6b. Right Leg: Motor (5-second hold - always test supine) - 0(No drift) 7. Limb Ataxia (finger/nose \\T\\ heel/martinez - test with eyes open) - 0(Absent) 8. Sensory Loss (pinprick arms/legs/face) - 0(Normal) 9. Best Language: Aphasia (description/naming/reading) - 0(No aphasia) Initials: NIH Stroke Scale - NIH Stroke Score Date: 02/18/2025 Time: 12:01 Total Score = 1 10. Dysarthria (speech clarity - read or repeat words) - 0(Normal) 11. Extinction and Inattention (visual/tactile/auditory/spatial/personal) - 0(No abnormality) 1a. Level of Consciousness (LOC) - 0(Alert) 1b. Level of Consciousness (LOC) (Month \\T\\ Age) - 0(Both) 1c. LOC Commands (Open \\T\\ Closes Eyes/Software Support Specialist) - 0(Both) 2. Best Gaze (Lateral Gaze Paresis) - 0(Normal) 3. Visual Field Loss - 0(No visual loss) 4. Facial Palsy - 1(Minor Paralysis) 5a. Left Arm: Motor (10-second hold) - 0(No drift) 5b. Right Arm: Motor (10-second hold) - 0(No drift) 6a. Left Leg: Motor (5-second hold - always test supine) - 0(No drift) 6b. Right Leg: Motor (5-second hold - always test supine) - 0(No drift) 7. Limb Ataxia (finger/nose \\T\\ heel/martinez - test with eyes open) - 0(Absent) 8. Sensory Loss (pinprick arms/legs/face) - 0(Normal) 9. Best Language: Aphasia (description/naming/reading) - 0(No aphasia) Initials: Signatures: Dispatcher [employer] EDMS Lxei Renteria RN RN hb Herbert Bee RN RN ll1 Anita Miller MD MD sp3 Zakiya [id number] Corrections: (The following items were deleted from the chart) 12:32 12:30 Home Meds: Sodium Bicarbonate Oral; hb hb
[2025-02-18 13:28] VITALS: TEMP 97.8; O2SAT 95
[2025-02-18 13:34] VITALS: BP 142/97
--- NOTE | 2025-02-19 16:45 | EKG ---
Test Date: 2025-02-18 Test Time: 12:09:52 [place] Hand: HB MEASUREMENT RESULTS: Intervals: Rate: 85 DC: 140 QRSD: 88 QT: 364 QTc: 433 [place]: P: 54 DC: 140 QRS: 59 T: 28 INTERPRETIVE STATEMENTS: Normal sinus rhythm Normal ECG Compared to ECG 11/24/2022 08:26:00 No significant changes Electronically Signed On 02-19-25 16:43:48 CDT by John Carrillo
== END 2025-02-18 13:15 | disposition home or self-care (01) ==
LOC: ER 11:12
DX: G51.0 Bell's palsy (principal); R29.701 NIHSS score 1; E11.9 Type 2 diabetes mellitus without complications; Z79.4 Long term (current) use of insulin; Z94.4 Liver transplant status; Z85.05 Personal history of malignant neoplasm of liver
CPT/HCPCS: 93005; 85025; 80048; 36415; 83735; 85610; 80076; 85730; 84484; 70496; 70498; 70450; 71045; 96375; 96374; 99285; Q9967; J1171; J2405

== ENCOUNTER 2025-07-31 08:32 | Emergency (ER) | payer BC, OTHER ==
[2025-07-31 09:35] LABS: Influenza A Ag Negative; Influenza B Ag Negative; SARS-CoV-2 Antigen Rapid Res Negative (Negative)
--- NOTE | 2025-07-31 11:11 | RAD REPORT ---
EXAMINATION: TWO VIEW CHEST XR CLINICAL INDICATION: Male, 59 years old. [facility] MAIN COUGH Bed Name: [facility] TECHNIQUE: 2 view radiographs of the chest were performed. COMPARISON: 02/18/2025. FINDINGS: The lungs are well inflated and clear. No pneumothorax or sizable effusion. The heart is normal in si ze. Mediastinal contours are unremarkable. IMPRESSION: No acute or significant abnormalities.
[2025-07-31 11:18] LABS: Absolute Lymphocytes (CBC) 0.9 K/uL (0.7-4.9); Hematocrit 44.3 % (39.6-49.0); Hemoglobin 15.1 g/dL (13.6-17.9); MCH 29.3 pg (27.0-35.0); MCHC 34.1 g/dL (32.0-36.0); MCV 85.8 fL (80-100); MPV 9.1 fL (7.6-11.3); Nucleated RBC Absolute Count 0.0 (0-0); Nucleated Red Blood Cells % 0.1 % (0-0); RBC Red Blood Cell Count 5.16 M/uL (4.33-5.43); White Blood Count 6.90 thou/uL (4.3-10.9)
[2025-07-31 11:42] LABS: ALT/SGPT 29.0 U/L (16-61); AST/SGOT 22.0 U/L (15-37); Albumin 3.3 g/dL (3.4-5.0); Albumin/Globulin Ratio 0.8 (1.1-1.8); Alkaline Phosphatase 80.0 U/L (45-117); Anion Gap 8.2 mEq/L (5.0-15.0); BUN Blood Urea Nitrogen 21.0 mg/dL (7-18); Globulin 3.9 g/dL (2.3-3.5); Glucose Level 116.0 mg/dL (74-106); Potassium 4.2 mEq/L (3.5-5.1)
--- NOTE | 2025-07-31 11:59 | EDPHYS ---
Physician Documentation [facility] Name: Nuvia Blandon Jr Age: 59 yrs Sex: Male : 1965 Arrival Date: 07/31/2025 Time: 08:32 Bed 6 Private MD: ED Physician Gustavo To HPI: 07/31 11:59 This 59 yrs old Male presents to ER via Ambulatory with complaints of Flu ms3 Symptoms. 11:59 59-year-old male with past medical history of liver cancer, cirrhosis, diabetes, ms3 otitis, right hip degeneration, status post liver transplant presents to the emergency department for body aches, cough, nausea that began on Satur morning. Patient states his discomfort is a 10/10. Patient states he has taken Tylenol and Mucinex without relief. Patient endorses chills, nausea, diarrhea. Patient denies vomiting.. Historical: - Allergies: 09:05 Bactrim (Hives); ap3 09:05 Morphine; nauseous; ap3 09:05 PENICILLINS (Hives); ap3 - PMHx: 09:05 cancer-liver; Cirrhosis; diabetes mellitus; Hepatitis; C; Hip Degeneration to R hip; ap3 liver transplant; - Immunization history:: Adult Immunizations up to date. - Infectious Disease History:: Denies. - Social history:: Smoking status: Patient denies any tobacco usage or history of. ROS: 11:59 MS/Extremity: Negative for injury and deformity, Skin: Negative for injury, rash, and ms3 discoloration, 11:59 Cardiovascular: Negative for chest pain, and palpitations. Abdomen/GI: Negative for abdominal pain, nausea, vomiting, diarrhea, and constipation, 11:59 Constitutional: Positive for body aches, chills, 11:59 Respiratory: Positive for cough, Exam: 11:59 Constitutional: This is a well developed, well nourished patient who is awake, alert, ms3 and in no acute distress. Cardiovascular: Regular rate and rhythm with a normal S1 and S2. No gallops, murmurs, or rubs. Normal PMI, no JVD. No pulse deficits. Respiratory: Lungs have equal breath sounds bilaterally, clear to auscultation and percussion. No rales, rhonchi or wheezes noted. No increased work of breathing, no retractions or nasal flaring. Abdomen/GI: Soft, non-tender, with normal bowel sounds. No distension or tympany. No guarding or rebound. No evidence of tenderness throughout. Skin: Warm, dry with normal turgor. Normal color with no rashes, no lesions, and no evidence of cellulitis. Vital Signs: 09:03 BP 122 / 94; Pulse 84; Resp 19; Temp 98; Pulse Ox 100% ; Weight 107.05 kg; Height 5 ft. ap3 7 in. ; Pain 10/10; 11:30 BP 150 / 92; Pulse 92; Resp 18; Pulse Ox 97% on R/A; cc6 13:30 BP 153 / 97; Pulse 95; Resp 19; Temp 98.6; Pulse Ox 100% on R/A; hb 09:03 Body Mass Index 36.96 (107.05 kg, 170.18 cm) ap3 09:03 Pain Scale: Adult ap3 [place] Coma Score: 13:30 Eye Response: spontaneous(4). Motor Response: obeys commands(6). Verbal Response: hb oriented(5). Total: 15. MDM: 08:54 Medical Screening Exam initiated ms3 11:59 Differential Diagnosis: Bronchitis Influenza Upper Respiratory Infection Viral ms3 Syndrome. Data reviewed: vital signs, nurses notes, lab test result(s), radiologic studies, and as a result, I will discharge patient. I considered the following discharge prescriptions or medication management in the emergency department Medications were administered in the Emergency Department. See MAR. Independent interpretation of the following test(s) in the Emergency Department X-Ray: My interpretation is Chest x-ray image reviewed by me does not reveal pneumonia. Counseling: I had a detailed discussion with the patient and/or guardian regarding the historical points, exam findings, and any diagnostic results supporting the discharge/admit diagnosis, lab results, radiology results, the need for outpatient follow up, to return to the emergency department if symptoms worsen or persist or if there are any questions or concerns that arise at home. Special discussion: I discussed with the patient/guardian in detail that at this point there is no indication for admission to the hospital. It is understood, however, that if the symptoms persist or worsen the patient needs to return immediately for re-evaluation. ED course: Discussed labs, chest x-ray findings with patient. Patient to follow-up with primary care physician 2 to 3 days. Patient understands agrees to plan. All questions were answered. Return precautions were discussed include worsening symptoms, or any other concerns.. 07/31 08:54 Order name: COVID-19 Ag + Flu A+B Ag; Complete Time: 09:47 ms3 07/31 10:05 Order name: CBC with Diff; Complete Time: 11:43 ms3 07/31 10:05 Order name: CMP; Complete Time: 11:43 ms3 07/31 09:47 Order name: Chest Pa And Lat (2 Views) XRAY; Complete Time: 11:17 ms3 07/31 10:05 Order name: IV Saline Lock; Complete Time: 11:00 ms3 07/31 10:05 Order name: Labs collected and sent; Complete Time: 11:00 ms3 Administered Medications: 12:22 Drug: Cyclobenzaprine PO 5 mg PO once Route: PO; cc6 13:33 Follow up: Response: No adverse reaction hb Disposition Summary: 07/31/25 11:58 Discharge Ordered Notes: Location: Home ms3 Condition: Stable ms3 Diagnosis - Acute upper respiratory infection, unspecified ms3 - Elevated blood-pressure reading, without diagnosis of hypertension ms3 Followup: ms3 - With: Roe Miller DO - When: 2 - 3 days - Reason: Recheck today's complaints Discharge Instructions: - Discharge Summary Sheet ms3 - Upper Respiratory Infection, Adult ms3 Forms: - Medication Reconciliation Form ms3 - Antibiotic Education ms3 - Prescription Opioid Use ms3 - Patient Portal Instructions ms3 - Leadership Thank You Letter ms3 Prescriptions: - benzonatate 200 mg Oral capsule - take 1 capsule ORAL route 3 times per day as needed; 15 capsule; Refills: 0, ms3 Product Selection Permitted - Cyclobenzaprine 5 mg Oral Tablet - take 1 tablet ORAL route 3 times per day As needed; 15 tablet; Refills: 0, ms3 Product Selection Permitted Signatures: Dispatcher [employer] EDMS Sara Meier RN RN ap3 Gustavo To DO DO ms3 Nicolasa Garcia RN RN cc6 Lexi Renteria RN hb Corrections: (The following items were deleted from the chart) 08:55 08:55 COVID-19 Ag + Flu A+B Ag+[id number].LAB.BRZ ordered. EDMS EDMS 09:48 09:48 Chest Pa And Lat (2 Views)+RAD.RAD.BRZ ordered. EDMS EDMS
--- NOTE | 2025-07-31 11:59 | ER ---
Nurse's Notes [facility] Name: Nuvia Blandon Jr Age: 59 yrs Sex: Male : 1965 Arrival Date: 07/31/2025 Time: 08:32 Bed 6 Private MD: Diagnosis: Acute upper respiratory infection, unspecified;Elevated blood-pressure reading, without diagnosis of hypertension Presentation: 07/31 09:03 Chief complaint: Patient states: he has been having headache, cough with nausea that ap3 all started on Wednesday. patient states his pain is currently a 10/10 on the pain scale. Coronavirus screen: Client presents with at least one sign or symptom that may indicate coronavirus-19. Ebola Screen: No symptoms or risks identified at this time. Initial Sepsis Screen: Does the patient meet any 2 criteria? No. Patient's initial sepsis screen is negative. Does the patient have a suspected source of infection? No. Patient's initial sepsis screen is negative. Risk Assessment: Do you want to hurt yourself or someone else? Patient reports no desire to harm self or others. Onset of symptoms was July 28, 2025. 09:03 Method Of Arrival: Ambulatory ap3 09:03 Acuity: CRIS 3 ap3 Triage Assessment: 09:05 General: Appears in no apparent distress. Behavior is calm, cooperative, appropriate ap3 for age, Reports chills for fever for feeling ill for. Pain: Complains of pain in generalized body aches Pain currently is 10 out of 10 on a pain scale. Neuro: Level of Consciousness is awake, alert, obeys commands, Oriented to person, place, time, situation, Appropriate for age. Cardiovascular: Patient's skin is warm and dry. Respiratory: Reports cough that is Airway is patent Respiratory effort is even, unlabored, Respiratory pattern is regular, symmetrical. Historical: - Allergies: 09:05 Bactrim (Hives); ap3 09:05 Morphine; nauseous; ap3 09:05 PENICILLINS (Hives); ap3 - PMHx: 09:05 cancer-liver; Cirrhosis; diabetes mellitus; Hepatitis; C; Hip Degeneration to R hip; ap3 liver transplant; - Immunization history:: Adult Immunizations up to date. - Infectious Disease History:: Denies. - Social history:: Smoking status: Patient denies any tobacco usage or history of. Screenin:06 [facility] ED Fall Risk Assessment (Adult) History of falling in the last 3 months, ap3 including since admission No falls in past 3 months (0 pts) Confusion or Disorientation No (0 pts) Intoxicated or Sedated No (0 pts) Impaired Gait No (0 pts) Mobility Assist Device Used No (0 pt) Altered Elimination No (0 pt) Score/Fall Risk Level 0 - 2 = Low Risk Oriented to surroundings, Maintained a safe environment, Educated pt \T\ family on fall prevention, incl call for assistance when getting out of bed, Assessed \T\ reinforced patient's understanding of fall precautions, Hourly rounding (assess needs \T\ fall precautionary measures) done, Used ambulatory aids as needed (educated on \T\ assisted with). Abuse screen: Denies threats or abuse. Nutritional screening: No deficits noted. Tuberculosis screening: No symptoms or risk factors identified. Assessment: 11:15 General: Appears in no apparent distress. comfortable, Behavior is calm, cooperative, cc6 appropriate for age. Pain: Complains of pain in right low back Pain radiates to left calf Pain currently is 7 out of 10 on a pain scale. Quality of pain is described as sciatic nerve pain. Neuro: Level of Consciousness is awake, alert, obeys commands, Oriented to person, place, time, situation, Appropriate for age. Cardiovascular: Capillary refill < 3 seconds Patient's skin is warm and dry. Respiratory: Reports cough that is dry, Airway is patent Respiratory effort is even, unlabored, Respiratory pattern is regular, symmetrical. GI: No signs and/or symptoms were reported involving the gastrointestinal system. : No signs and/or symptoms were reported regarding the genitourinary system. EENT: Reports nasal congestion since Saturday 07/28/. Derm: No signs and/or symptoms reported regarding the dermatologic system. 13:01 Reassessment: discharge pending, awaiting prescriptions from provider. hb 13:15 Reassessment: Patient appears in no apparent distress at this time. No changes from hb previously documented assessment. Patient and/or family updated on plan of care and expected duration. Pain level reassessed. Patient is alert, oriented x 3, equal unlabored respirations, skin warm/dry/pink. Vital Signs: 09:03 BP 122 / 94; Pulse 84; Resp 19; Temp 98; Pulse Ox 100% ; Weight 107.05 kg; Height 5 ft. ap3 7 in. ; Pain 10/10; 11:30 BP 150 / 92; Pulse 92; Resp 18; Pulse Ox 97% on R/A; cc6 13:30 BP 153 / 97; Pulse 95; Resp 19; Temp 98.6; Pulse Ox 100% on R/A; hb 09:03 Body Mass Index 36.96 (107.05 kg, 170.18 cm) ap3 09:03 Pain Scale: Adult ap3 [place] Coma Score: 13:30 Eye Response: spontaneous(4). Motor Response: obeys commands(6). Verbal Response: hb oriented(5). Total: 15. ED Course: 08:35 Patient arrived in ED. mr 08:36 Gustavo To DO is Attending Physician. ms3 09:05 Triage completed. ap3 09:06 Arm band placed on right wrist. ap3 09:08 COVID-19 Ag + Flu A+B Ag Sent. ap3 09:10 Patient has correct armband on for positive identification. Bed in low position. Call hb light in reach. Side rails up X 1. 09:10 Provided Education on: call light use. hb 10:35 Chest Pa And Lat (2 Views) XRAY In Process Unspecified. EDMS 11:00 CBC with Diff Sent. bc6 11:00 CMP Sent. bc6 11:00 Initial lab(s) drawn, by pr, sent to lab. Inserted saline lock: 24 gauge in right upper bc6 arm, using aseptic technique. Blood collected. Flushed with 10 mL NS. 11:22 Nicolasa Garcia, RN is Primary Nurse. cc6 11:58 Roe Miller DO is Referral Physician. ms3 13:32 No provider procedures requiring assistance completed. IV discontinued, intact, hb bleeding controlled, No redness/swelling at site. Pressure dressing applied. Administered Medications: 12:22 Drug: Cyclobenzaprine PO 5 mg PO once Route: PO; cc6 13:33 Follow up: Response: No adverse reaction hb Medication: 13:30 VIS not applicable for this client. hb Outcome: 11:58 Discharge ordered by MD. ms3 13:32 Discharged to home ambulatory, hb 13:32 Condition: stable 13:32 Discharge instructions given to patient, Instructed on discharge instructions, follow up and referral plans. no drinking with medication, no driving heavy equipment, medication usage, safety practices, Demonstrated understanding of instructions, follow-up care, medications, Prescriptions given X 2, 13:33 Patient left the ED. zm Signatures: Dispatcher [employer] EDMS Karen Dolan, Reg Reg mr RenteriaLexi, RN RN Sara Meier RN RN ap3 Gustavo To DO DO ms3 Phuong Schmidt RN RN zm Sandrine Bagley 6 Nicolasa Garcia RN RN cc6
[2025-07-31] MEDS ORDERED: CYCLOBENZAPRINE 10 MG TAB ONE (12:18)
[2025-07-31 15:58] VITALS: BP 153/97; TEMP 98.6; O2SAT 100
== END 2025-07-31 13:33 | disposition home or self-care (01) ==
LOC: ER 08:32
DX: J06.9 Acute upper respiratory infection, unspecified (principal); R03.0 Elevated blood-pressure reading, without diagnosis of hypertension; Z11.52 Encounter for screening for COVID-19; Z94.4 Liver transplant status
CPT/HCPCS: 36415; 71046; 80053; 85025; 87428; 99284